=== PATIENT | male | born 1930 | race Caucasian/White ===

== ENCOUNTER 2016-08-30 19:02 | Inpatient (IN) | payer MEDICARE, OTHER ==
[~2016-08-30] VITALS: Ht 182.9 cm; Wt 92.3 kg
[~2016-08-30 19:02] MED LIST: ALLOPOW4 PO; AMPI500C63 PO; ASPI81CH3; CHOL1CAP6 PO; CIAL5TAB PO; KONS520C PO; NEXI10GR PO; OMEG100010; TAB-TAB PO; TRIBTAB3 PO; VITA50LO PO
[2016-08-30 19:08] VITALS: BP 118/83; PULSE 112; RESP 20; TEMP 100.9; O2SAT 93
[2016-08-30] MEDS ORDERED: ASPI1TAB69 PO (19:58)
[2016-08-30] MEDS ORDERED: VITA100C6 CHEW (19:58)
[2016-08-30] MEDS ORDERED: CHOL100025 CHEW (19:58)
[2016-08-30] MEDS ORDERED: FISHCAP4 PO (19:58)
[2016-08-30] MEDS ORDERED: TRIBTAB PO (19:58)
[2016-08-30] MEDS ORDERED: ALLO300T2 PO (19:58)
[2016-08-30] MEDS ORDERED: META0.52 PO (19:58)
[2016-08-30] MEDS ORDERED: MULT1CHW70 (19:58)
[2016-08-30] MEDS ORDERED: NEXI40CA PO (19:58)
[2016-08-30] MEDS ORDERED: VITA100L PO (19:58)
[2016-08-30] MEDS ORDERED: SODIUM CHLOR 0.9% 1000 ML INJ 1,000 ML IV ONE (20:32)
[2016-08-30] MEDS ORDERED: SODIUM CHLOR 0.9% 1000 ML INJ 800 ML IV ONE (20:32)
[2016-08-30] MEDS ORDERED: ACETAMINOPHEN 325 MG TAB PO ONE (20:45)
--- NOTE | 2016-08-30 20:48 | PD ---
HPI Chief Complaint: General Weakness Time Seen by Provider: 20:24 Travel History International Travel<30 days: No Contact w/Intl Traveler<30days: No Traveled to known affect area: No History of Present Illness HPI 85-year-old male with history of hypertension, sleep apnea, admitted in April 2016 for sepsis, UTI, Enterococcus faecalis bacteremia, here for evaluation because he believes he is having symptoms similar to when he was septic. Symptoms started today. He is having some dysuria. He is complaining of overall generalized weakness and difficulty walking because of weakness. No chest pain or dyspnea. No headache. He has been having a slight cough over the last couple of days which is nonproductive. Triage vital signs show the patient is febrile and tachycardic. His admission in April for UTI/sepsis was preceded by cystoscopy/rectal ultrasonography of his prostate. He has not had any recent urologic procedures. PFSH Past Medical History Hx Anticoagulant Therapy: Yes (ASPIRIN) Arthritis: Yes Blood Disorders: No Anxiety: No Depression: Yes Heart Rhythm Problems: No Cancer: No Cardiovascular Problems: Yes (PACEMAKER) High Cholesterol: Yes Chemotherapy: No Chest Pain: No Congestive Heart Failure: No Diminished Hearing: No Endocrine: No GERD: Yes Gout: Yes Genitourinary: Yes Hepatitis: No Hiatal Hernia: Yes Hypertension: Yes Immune Disorder: No Musculoskeletal: Yes Neurologic: Yes Psychiatric: No Reproductive: No Respiratory: Yes Radiation Therapy: No Sleep Apnea: Yes (uses C-PAP) Thyroid Disease: No Past Surgical History Abdominal Surgery: No AICD: No Cardiac Surgery: Yes (PACEMAKER) Ear Surgery: No Endocrine Surgery: No Eye Surgery: Yes (CATARACT BILATERAL/DETACHED RETINA, ) Gynecologic Surgery: No Joint Replacement: Yes (LEFT HIP AND LEFT WRIST) Oral Surgery: No Pacemaker: Yes Thoracic Surgery: No Other Surgery: Yes (HIP SURGERY) Social History Alcohol Use: Yes (2-3 GLASSES OF WINE QD) Tobacco Use: No Substance Use: No Allergies-Medications (Allergen,Severity, Reaction): Coded Allergies: Monosodium Glutamate (Verified Allergy, Severe, Nausea/Vomiting, 08/30/16) Reported Meds & Prescriptions Reported Meds & Active Scripts Active Reported Tribenzor (Ipgqcgagld-Hnnffihuqp-Igahlhqkgrecnprdilz) 20-5-12.5 mg Tab Unknown Dose PO DAILY Metamucil (Psyllium) 520 Mg Cap 1 Cap PO DAILY Multivitamin Adult (Multiple Vitamins W/ Minerals) 1 Chw Chw Vitamin B-12 (Cyanocobalamin) 100 Mcg Lozg 100 Mcg PO DAILY Vitamin D3 (Cholecalciferol) 1,000 Unit Chew 2,000 Units CHEW DAILY Vitamin C (Ascorbic Acid) 100 Mg Chew 100 Mg CHEW Nexium (Esomeprazole DR) 40 Mg Capdr 40 Mg PO DAILY Allopurinol 300 Mg Tab 300 Mg PO DAILY Aspirin 81 Mg Tabdr 81 Mg PO DAILY Fish Oil + D3 (Fish Oil-Cholecalciferol) 1,200-1,000 Mg-Unit Cap 2 Cap PO DAILY Review of Systems Except as stated in HPI: all other systems reviewed are Neg Physical Exam Narrative GENERAL: Well-developed, well-nourished, comfortable, no acute distress. SKIN: Warm and dry. No rash. HEAD: Atraumatic. Normocephalic. EYES: Pupils equal and round. No scleral icterus. No injection or drainage. ENT: Mucous membranes pink and dry. NECK: Trachea midline. No JVD. No nuchal rigidity. CARDIOVASCULAR: Tachycardic, regular. RESPIRATORY: No accessory muscle use. Clear to auscultation. Breath sounds equal bilaterally. GASTROINTESTINAL: Abdomen soft, non-tender, nondistended. MUSCULOSKELETAL: No obvious deformities. No clubbing. No cyanosis. No edema. NEUROLOGICAL: Awake and alert. No obvious cranial nerve deficits. Motor grossly within normal limits. Normal speech. PSYCHIATRIC: Appropriate mood and affect; insight and judgment normal. Data Data Last Documented VS Vital Signs Date Time Temp Pulse Resp B/P Pulse Ox O2 Delivery O2 Flow Rate FiO2 08/30/16 22:11 98.3 85 18 136/81 95 Nasal Cannula 2 Orders Electrocardiogram (08/30/16 20:32) Complete Blood Count With Diff (08/30/16 20:32) Comprehensive Metabolic Panel (08/30/16 20:32) Prothrombin Time / Inr (Pt) (08/30/16 20:32) Act Partial Throm Time (Ptt) (08/30/16 20:32) Lactic Acid Sepsis Protocol (08/30/16 20:32) Ckmb (Isoenzyme) Profile (08/30/16 20:32) Troponin I (08/30/16 20:32) Urinalysis - C+S If Indicated (08/30/16 20:32) Influenzae A/B Antigen (08/30/16 20:32) Blood Culture (08/30/16 20:32) Chest, Single Ap (08/30/16 20:32) Blood Glucose (08/30/16 20:32) Ecg Monitoring (08/30/16 20:32) Iv Access Insert/Monitor (08/30/16 20:32) Oximetry (08/30/16 20:32) Oxygen Administration (08/30/16 20:32) Acetaminophen (Tylenol) (08/30/16 20:45) Sodium Chlor 0.9% 1000 Ml Inj (Ns 1000 M (08/30/16 20:32) Sodium Chlor 0.9% 1000 Ml Inj (Ns 1000 M (08/30/16 20:32) Urine Culture (08/30/16 20:45) CKMB (08/30/16 20:50) CKMB% (08/30/16 20:50) Ampicillin Inj (Ampicillin Inj) (08/30/16 22:25) Labs Laboratory Tests Test 08/30/16 08/30/16 20:45 20:50 Urine Color YELLOW Urine Turbidity CLEAR Urine pH 6.0 Urine Specific [place] 1.016 Urine Protein NEG mg/dL Urine Glucose (UA) NEG mg/dL Urine Ketones NEG mg/dL Urine Occult Blood MOD Urine Nitrite NEG Urine Bilirubin NEG Urine Leukocyte Esterase SMALL Urine RBC 10-14 /hpf Urine WBC 9-14 /hpf Urine WBC Clumps OCC Urine Squamous Epithelial 0-5 /hpf Cells Urine Bacteria FEW /hpf Microscopic Urinalysis Comment CULTURE INDICATED White Blood Count 9.8 TH/MM3 Red Blood Count 4.25 MIL/MM3 Hemoglobin 14.3 GM/DL Hematocrit 41.2 % Mean Corpuscular Volume 96.9 FL Mean Corpuscular Hemoglobin 33.6 PG Mean Corpuscular Hemoglobin 34.7 % Concent Red Cell Distribution Width 13.0 % Platelet Count 168 TH/MM3 Mean Platelet Volume 7.2 FL Neutrophils (%) (Auto) % Lymphocytes (%) (Auto) % Monocytes (%) (Auto) % Eosinophils (%) (Auto) % Basophils (%) (Auto) % Neutrophils # (Auto) TH/MM3 Lymphocytes # (Auto) TH/MM3 Monocytes # (Auto) TH/MM3 Eosinophils # (Auto) TH/MM3 Basophils # (Auto) TH/MM3 CBC Comment AUTO DIFF Differential Total Cells 100 Counted Neutrophils % (Manual) 89 % Band Neutrophils % 3 % Lymphocytes % 3 % Monocytes % 4 % Basophils % 1 % Neutrophils # (Manual) 9.0 TH/MM3 Differential Comment FINAL DIFF MANUAL Platelet Estimate NORMAL Platelet Morphology Comment CLUMPED Red Cell Morphology Comment NORMAL Prothrombin Time 10.1 SEC Prothromb Time International 0.9 RATIO Ratio Activated Partial 27.8 SEC Thromboplast Time Sodium Level 133 MEQ/L Potassium Level 3.8 MEQ/L Chloride Level 97 MEQ/L Carbon Dioxide Level 26.0 MEQ/L Anion Gap 10 MEQ/L Blood Urea Nitrogen 24 MG/DL Creatinine 1.40 MG/DL Estimat Glomerular Filtration 48 ML/MIN Rate Random Glucose 135 MG/DL Lactic Acid Level 1.6 mmol/L Calcium Level 8.2 MG/DL Total Bilirubin 0.5 MG/DL Aspartate Amino Transf 22 U/L (AST/SGOT) Alanine Aminotransferase 33 U/L (ALT/SGPT) Alkaline Phosphatase 82 U/L Total Creatine Kinase 158 U/L Creatine Kinase MB 2.5 NG/ML Troponin I LESS THAN 0.02 NG/ML Total Protein 7.3 GM/DL Albumin 3.5 GM/DL [facility] Medical Decision Making Medical Screen Exam Complete: Yes Emergency Medical Condition: Yes Medical Record Reviewed: Yes Differential Diagnosis Sepsis, UTI, pneumonia, bacteremia, influenza, dehydration/electrolyte abnormality Narrative Course Initial vital signs show heart rate 112, blood pressure 118/83, pulse ox 93% on room air, oral temp of 100.9F. CBC shows WBC 9.8, hemoglobin 14.3, hematocrit 41.2, platelets 168, neutrophils 89%, band neutrophils 3%. CMP is remarkable for BUN 24, creatinine 1.4, GFR 48 which is slightly worse than his baseline, otherwise unremarkable. Cardiac enzymes are negative. Lactic acid is 1.6. Chest x-ray shows no focal consolidation. Minimal basilar atelectasis. UA is suggestive of UTI. In April 2016 the patient had UTI/bacteremia that grew out Enterococcus faecalis. He was treated with ampicillin at that time. He will be started on ampicillin here. The patient is also extremely weak and his is concerned that she will not be able to care for him at home. There are no focal neurologic deficits on exam. Patient meets sepsis criteria. He'll be admitted for further treatment and evaluation of sepsis, UTI. Case discussed with hospitalist Dr. Puri who will admit the patient to her service. Diagnosis Primary Impression: Sepsis Qualified Code: A41.9 - Sepsis, due to unspecified organism Additional Impression: UTI (urinary tract infection) Qualified Code: N39.0 - Urinary tract infection with hematuria, site unspecified Admitting Information Admitting Physician Requests: Admit Gonzalez Bellamy MD Aug 30, 2016 20:48
[2016-08-30 21:00] VITALS: BP 146/85; PULSE 94; RESP 20; TEMP 99.3; O2SAT 90
[2016-08-30 21:06] LABS: HEMATOCRIT 41.2 % (39.0-51.0); MEAN CELL VOLUME 96.9 FL (80.0-100.0); MEAN CORPUSCULAR HEMOGLOBIN 33.6 PG (27.0-34.0); MEAN CORPUSCULAR HGB CONC 34.7 % (32.0-36.0); PLATELET COUNT 168 TH/MM3 (150-450); RED BLOOD COUNT 4.25 MIL/MM3 (4.50-5.90); WHITE BLOOD COUNT 9.8 TH/MM3 (4.0-11.0)
[2016-08-30 21:12] LABS: GLUCOSE,URINE NEG (NEG); KETONE, URINE NEG (NEG); NITRITE,URINE NEG (NEG)
[2016-08-30 21:16] LABS: CHLORIDE 97 MEQ/L (98-107); POTASSIUM 3.8 MEQ/L (3.5-5.1); SODIUM (NA) 133 MEQ/L (136-145)
[2016-08-30 21:19] LABS: BLOOD, URINE MOD (NEG)
[2016-08-30 21:19] LABS: ANION GAP 10 MEQ/L (5-15); BLOOD UREA NITROGEN 24 MG/DL (7-18)
[2016-08-30 21:20] VITALS: BP 147/78; PULSE 86; RESP 18; O2SAT 95
[2016-08-30 21:20] LABS: URINE COLOR YELLOW (YELLW/STRAW)
[2016-08-30 21:21] LABS: BACTERIA, URINE FEW /hpf; COMMENT (UR) CULTURE INDICATED; CULTURE IF INDICATED CULTURE INDICATED; SQUAMOUS EPITHELIAL CELL URINE 0-5 /hpf (0-5)
[2016-08-30 21:21] LABS: APTT (PATIENT) 27.8 SEC (24.3-30.1); INTERNATIONAL NORMALIZED RATIO 0.9 RATIO; PROTHROMBIN TIME - PATIENT 10.1 SEC (9.8-11.6)
[2016-08-30 21:22] LABS: ALT (GPT) 33 U/L (12-78); AST (GOT) 22 U/L (15-37)
[2016-08-30 21:23] LABS: GLOMERULAR FILTRATION RATE 48 ML/MIN (>89)
[2016-08-30 21:24] LABS: TOTAL BILIRUBIN ADULT 0.5 MG/DL (0.2-1.0)
[2016-08-30 21:25] LABS: ALKALINE PHOSPHATASE 82 U/L (45-117); CREATINE KINASE 158 U/L (39-308); HEMO FLAGS AUTO DIFF
[2016-08-30 21:37] LABS: CKMB 2.5 NG/ML (0.5-3.6)
--- NOTE | 2016-08-30 21:56 | RADHPO ---
EXAM DATE/TIME: 08/30/2016 21:10 [facility] COMPARISON: CHEST SINGLE AP, April 26, 2016, 18:26. INDICATIONS : Fever/ weakness. MEDICAL HISTORY : Hypertension. Gastroesophageal reflux disease. Hiatal hernia. SURGICAL HISTORY : Pacemaker. ENCOUNTER: Initial ACUITY: 1 day PAIN SCORE: 4/10 LOCATION: Bilateral chest FINDINGS: A single view of the chest demonstrates pacer leads overlying right atrium right ventricle. Mild basi lar atelectasis. No pneumothorax. Tortuous aorta. CONCLUSION: 1. No focal consolidation. Minimal basilar atelectasis. Benji Russo MD on August 30, 2016 at 21:53 Board Certified Radiologist. This report was verified electronically.
[2016-08-30 21:58] LABS: BANDS 3 % (0-6); BASOPHILS 1 % (0-2); PLATELET ESTIMATE SMEAR NORMAL (NORMAL); PLATELET MORPHOLOGY CLUMPED (NORMAL); POLYS (SEG NEUTROPHILS) 89 % (16-70); SCAN/DIFF FINAL DIFF MANUAL; WBC DIFF SAMPLE 100
[2016-08-30] MEDS ORDERED: AMPICILLIN 500 MG VIAL IV PUSH ONE (22:00)
[2016-08-30 22:11] VITALS: BP 136/81; PULSE 85; RESP 18; TEMP 98.3; O2SAT 95
[2016-08-30] MEDS ORDERED: AMPICILLIN 500 MG/NS 50 ML IV ONE ×2 (22:25)
[2016-08-30] MEDS ORDERED: ACETAMINOPHEN/HYDROcodone 325 MG/5 MG TAB PO PRN (22:30)
[2016-08-30] MEDS ORDERED: BISACODYL 10 MG SUPP PR PRN (22:30)
[2016-08-30] MEDS ORDERED: ACETAMINOPHEN/HYDROcodone 325 MG/10 MG TAB PO PRN (22:30)
[2016-08-30] MEDS ORDERED: ONDANSETRON HCL 4 MG/2 ML VIAL IVP PRN (22:30)
[2016-08-30] MEDS ORDERED: Vancomycin Consult Pharmacy 1 EA OTHER SCH (22:30)
[2016-08-30] MEDS: SODIUM CHLOR 0.9% 1000 ML INJ 1,000 ML IV SCH (23:09)
[2016-08-30 23:10] VITALS: BP 141/105; PULSE 82; RESP 18; O2SAT 94
[2016-08-30] MEDS ORDERED: VANCOMYCIN 1,500 MG/NS 500 ML IV ONE ×2 (23:30)
[2016-08-31] VITALS (7 sets, daily range): BP systolic 120–159; BP diastolic 74–94; PULSE 82–97; RESP 14–20; TEMP 98.4–101.6; O2SAT 90–97
[2016-08-31 06:46] LABS: AUTOMATED NEUTROPHIL # 6.6 TH/MM3 (1.8-7.7); BASOPHIL % 0.3 % (0.0-2.0); EOSINOPHIL % 0.6 % (0.0-4.0); HEMATOCRIT 38.5 % (39.0-51.0); HEMO FLAGS DIFF FINAL; LYMPH % 6.3 % (9.0-44.0); LYMPHOCYTE # 0.5 TH/MM3 (1.0-4.8); MEAN CORPUSCULAR HEMOGLOBIN 33.2 PG (27.0-34.0); MEAN CORPUSCULAR HGB CONC 33.9 % (32.0-36.0); MONO % 7.8 % (0.0-8.0); PLATELET COUNT 164 TH/MM3 (150-450); RED BLOOD COUNT 3.93 MIL/MM3 (4.50-5.90); RED CELL DISTRIBUTION WIDTH 13.6 % (11.6-17.2); WHITE BLOOD COUNT 7.7 TH/MM3 (4.0-11.0)
[2016-08-31 06:56] LABS: CHLORIDE 103 MEQ/L (98-107); POTASSIUM 3.2 MEQ/L (3.5-5.1); SODIUM (NA) 139 MEQ/L (136-145)
[2016-08-31 07:21] LABS: ALKALINE PHOSPHATASE 60 U/L (45-117); ALT (GPT) 25 U/L (12-78); ANION GAP 9 MEQ/L (5-15); AST (GOT) 21 U/L (15-37); BICARBONATE 26.6 MEQ/L (21.0-32.0); BLOOD UREA NITROGEN 15 MG/DL (7-18); GLOMERULAR FILTRATION RATE 71 ML/MIN (>89); TOTAL BILIRUBIN ADULT 0.7 MG/DL (0.2-1.0)
[2016-08-31] MEDS: SODIUM CHLOR 0.9% 1000 ML INJ 1,000 ML IV SCH ×2 (10:04→18:17)
[2016-08-31] MEDS: SODIUM CHLORIDE 0.9% FLUSH 5 ML FLUSH FLUSH SCH ×2 (10:05→20:29)
[2016-08-31] MEDS: CEFEPIME INJ 1,000 MG in SODIUM CHLORIDE 0.9% INJ 100 ML IV SCH ×2 (10:05→20:47)
--- NOTE | 2016-08-31 11:24 | EKG ---
Date Performed: 08/30/2016 Time Performed: 20:53:28 PTAGE: 85 years EKG: Sinus rhythm with 1st degree A-V block Left axis deviation RBBB with left anterior fascicular block Lateral ST el evation - possible early repolarization Compared to previous tracing 03/19/2016, sinus rhythm with firs t degree AV block has replaced ventricular pacer. Abnormal ECG PREVIOUS TRACING : 03/19/2016 13.18 DOCTOR: Gerson Moreno Interpretating Date/Time 08/31/2016 11:22:53
--- NOTE | 2016-08-31 15:14 | HHI.HP ---
[facility] Gerson Payne MD Admission Diagnosis sepsis, UTI Diagnoses: Travel History International Travel<30 Days: No Contact w/Intl Traveler <30 Da: No Traveled to Known Affected Are: No History of Present Illness This is a pleasant 85 year-old male with past medical history of hypertension, permanent pacemaker, previous history of UTI and sepsis who presented to the ER last night complaining of dysuria, subjective fever chills, and acute onset of generalized weakness. The patient has a long-standing history of gait instability and has been evaluated by neurology as well as neurosurgery for this in the past. He states he went to a [place] yesterday with his and was using his cane at beginning of the democrat. By the end of the democrat he had to have assist from 2 people to get him up. He also endorsed that he was feeling fevers and chills. Upon further questioning he does endorse that he has been having some dysuria for the past several weeks that he had not disclosed to his . Overall he felt his symptoms were similar to when he had the sepsis back in April 2016. Because of these symptoms the patient presented to the ER. 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 Anne Lung nodule Past Surgical History Permanent pacemaker Hip fracture 3 Reported Medications Allergies Coded Allergies Type Severity Reaction Last Updated Verified Monosodium Glutamate Allergy Severe Nausea/Vomiting 08/30/16 Yes Active Scripts Medications Dose Route/Sig Days Date Category Tribenzor (Vgsjsijqaf-Goretzzqxa-Jbnukjggwxvoeiglfri) 20-5-12.5 mg Tab Unknown Dose PO DAILY 08/30/16 Reported Metamucil (Psyllium) 520 Mg Cap 1 Cap PO DAILY 08/30/16 Reported Multivitamin Adult (Multiple Vitamins W/ Minerals) 1 Chw Chw 08/30/16 Reported Vitamin B-12 (Cyanocobalamin) 100 Mcg Lozg 100 Mcg PO DAILY 08/30/16 Reported Vitamin D3 (Cholecalciferol) 1,000 Unit Chew 2,000 Units CHEW DAILY 08/30/16 Reported Vitamin C (Ascorbic Acid) 100 Mg Chew 100 Mg CHEW 08/30/16 Reported Nexium (Esomeprazole DR) 40 Mg Capdr 40 Mg PO DAILY 08/30/16 Reported Allopurinol 300 Mg Tab 300 Mg PO DAILY 08/30/16 Reported Aspirin 81 Mg Tabdr 81 Mg PO DAILY 08/30/16 Reported Fish Oil + D3 (Fish Oil-Cholecalciferol) 1,200-1,000 Mg-Unit Cap 2 Cap PO DAILY 08/30/16 Reported Allergies: Coded Allergies: Monosodium Glutamate (Verified Allergy, Severe, Nausea/Vomiting, 08/30/16) Family History Reviewed and noncontributory Social History No alcohol tobacco or drug use. and lives with his . Spends part of the time each year in [place]. Physical Exam Vital Signs Vital Signs Date Time Temp Pulse Resp B/P Pulse Ox O2 Delivery O2 Flow Rate FiO2 08/31/16 13:33 98.4 97 14 134/80 92 08/31/16 10:33 99.5 85 15 140/94 92 08/31/16 04:00 99.1 86 18 141/79 92 08/31/16 00:20 84 08/31/16 00:00 100.4 89 18 120/74 96 08/31/16 00:00 84 18 159/75 97 Room Air 08/31/16 00:00 97 Room Air 08/30/16 23:10 82 18 141/105 94 Nasal Cannula 2 08/30/16 22:11 98.3 85 18 136/81 95 Nasal Cannula 2 08/30/16 21:20 86 18 147/78 95 Nasal Cannula 2 08/30/16 21:10 20 94 Nasal Cannula 2 08/30/16 21:00 90 Nasal Cannula 2 08/30/16 21:00 90 Nasal Cannula 2 08/30/16 21:00 99.3 94 20 146/85 90 Nasal Cannula 2 08/30/16 19:08 100.9 112 20 118/83 93 Physical Exam GENERAL: Well-nourished, well-developed very pleasant elderly male patient who appears generally than chronologic age. SKIN: Warm and dry. HEAD: Normocephalic. EYES: No scleral icterus. No injection or drainage. NECK: Supple, trachea midline. No JVD or lymphadenopathy. CARDIOVASCULAR: Regular rate and rhythm without murmurs, gallops, or rubs. RESPIRATORY: Breath sounds equal and clear to auscultation bilaterally. No accessory muscle use. GASTROINTESTINAL: Abdomen soft, non-tender, nondistended. EXTREMITIES: No cyanosis, or edema. NEUROLOGICAL: Awake, alert, and oriented x 3. Cognitively sharp. Non-focal. Laboratory Laboratory Tests Test 08/30/16 08/30/16 08/31/16 20:45 20:50 05:14 Urine Color YELLOW Urine Turbidity CLEAR Urine pH 6.0 Urine Specific [place] 1.016 Urine Protein NEG Urine Glucose (UA) NEG Urine Ketones NEG Urine Occult Blood MOD Urine Nitrite NEG Urine Bilirubin NEG Urine Leukocyte Esterase SMALL Urine RBC 10-14 Urine WBC 9-14 Urine WBC Clumps OCC Urine Squamous Epithelial 0-5 Cells Urine Bacteria FEW Microscopic Urinalysis Comment CULTURE INDICATED Prothrombin Time 10.1 Prothromb Time International 0.9 Ratio Activated Partial 27.8 Thromboplast Time Sodium Level 133 139 Potassium Level 3.8 3.2 Chloride Level 97 103 Carbon Dioxide Level 26.0 26.6 Anion Gap 10 9 Blood Urea Nitrogen 24 15 Creatinine 1.40 1.00 Estimat Glomerular Filtration 48 71 Rate Random Glucose 135 113 Lactic Acid Level 1.6 Calcium Level 8.2 8.1 Total Bilirubin 0.5 0.7 Aspartate Amino Transf 22 21 (AST/SGOT) Alanine Aminotransferase 33 25 (ALT/SGPT) Alkaline Phosphatase 82 60 Total Creatine Kinase 158 Creatine Kinase MB 2.5 Troponin I LESS THAN 0.02 Total Protein 7.3 6.3 Albumin 3.5 2.9 White Blood Count 9.8 7.7 Red Blood Count 4.25 3.93 Hemoglobin 14.3 13.1 Hematocrit 41.2 38.5 Mean Corpuscular Volume 96.9 98.0 Mean Corpuscular Hemoglobin 33.6 33.2 Mean Corpuscular Hemoglobin 34.7 33.9 Concent Red Cell Distribution Width 13.0 13.6 Platelet Count 168 164 Mean Platelet Volume 7.2 7.5 Neutrophils (%) (Auto) 85.0 Lymphocytes (%) (Auto) 6.3 Monocytes (%) (Auto) 7.8 Eosinophils (%) (Auto) 0.6 Basophils (%) (Auto) 0.3 Neutrophils # (Auto) 6.6 Lymphocytes # (Auto) 0.5 Monocytes # (Auto) 0.6 Eosinophils # (Auto) 0.0 Basophils # (Auto) 0.0 CBC Comment AUTO DIFF DIFF FINAL Differential Total Cells 100 Counted Neutrophils % (Manual) 89 Band Neutrophils % 3 Lymphocytes % 3 Monocytes % 4 Basophils % 1 Neutrophils # (Manual) 9.0 Differential Comment FINAL DIFF MANUAL Platelet Estimate NORMAL Platelet Morphology Comment CLUMPED Red Cell Morphology Comment NORMAL Date/Time Procedure Status Source Growth 08/30/16 20:59 Influenza Types A,B Antigen ([place]) - Final Complete Nasal Washing NEGATIVE FOR FLU A AND B ANTIGEN.... 08/30/16 20:55 Aerobic Blood Culture - Preliminary Resulted Blood Peripheral NO GROWTH IN 1 DAY 08/30/16 20:55 Anaerobic Blood Culture - Preliminary Resulted Blood Peripheral NO GROWTH IN 1 DAY 08/30/16 20:45 Urine Culture - Preliminary Resulted Urine Clean Catch Group D Enterococcus Result Diagram: 08/31/1614 08/31/16513 Imaging Last Impressions Chest X-Ray 08/30/162031 Signed Impressions: Service Date/Time: Tuesday, August 30, 2016 21:10 - CONCLUSION: 1. No focal consolidation. Minimal basilar atelectasis. Benji Russo MD Assessment and Plan Problem List: (1) Sepsis ICD Code: A41.9 Status: Acute (2) UTI (urinary tract infection) ICD Code: N39.0 Status: Acute (3) Ataxia ICD Code: R27.0 Status: Acute (4) PAOLA (acute kidney injury) ICD Code: N17.9 Status: Acute Assessment and Plan -Sepsis due to UTI. Patient presented with fever, tachycardia, abnormal UA and acute kidney injury. Patient does have previous history of sepsis due to UTI with enterococcus back in April 2016 after a transrectal biopsy of the prostate. Will continue IV antibiotics, follow-up blood and urine cultures. Lactic acid was not elevated. Currently patient is clinically stable. -Generalized weakness with chronic gait instability. We'll consult physical therapy. Patient states that his gait has worsened due to the acute illness. If necessary he would like to go to [facility] rehabilitation senior care facility. He does not feel that his can handle him at home currently. Will assess how he does with physical therapy. -Acute kidney injury. Improving with IV fluids. -Obstructive sleep apnea-may use home cPap. -Gout - continue allopurinol. -Hypertension - resume Norvasc, losartan and HCTZ. -Permanent pacemaker followed by Dr. Anne -DVT prophylaxis Problem Qualifiers (1) Sepsis: Qualified Code: A41.9 - Sepsis, due to unspecified organism (2) UTI (urinary tract infection): Qualified Code: N39.0 - Urinary tract infection with hematuria, site unspecified Harriet Singh MD Aug 31, 2016 15:13
[2016-08-31] MEDS ORDERED: POTASSIUM CHLORIDE 10 MEQ CONTROLLED RELEASE TAB PO ONE (16:00)
[2016-08-31] MEDS: PSYLLIUM FIBER SF/GF 6 GM POWD PKT PO SCH (18:06)
[2016-08-31] MEDS: ASPIRIN EC 81 MG TABEC PO SCH (18:06)
[2016-08-31] MEDS: ALLOPURINOL 300 MG TAB PO SCH (18:06)
[2016-08-31] MEDS: VANCOMYCIN INJ 1,500 MG in SODIUM CHLORID 0.9% 500 ML INJ 500 ML IV SCH (18:09)
[2016-08-31] MEDS: ACETAMINOPHEN 325 MG TAB PO PRN (19:26)
[2016-09-01] VITALS: BP 140/78; PULSE 90; RESP 18; TEMP 98.6; O2SAT 92
[2016-09-01 04:00] VITALS: BP 156/85; PULSE 69; RESP 18; TEMP 100.9; O2SAT 96
[2016-09-01] MEDS: SODIUM CHLOR 0.9% 1000 ML INJ 1,000 ML IV SCH (04:24)
[2016-09-01] MEDS: ACETAMINOPHEN 325 MG TAB PO PRN (05:47)
[2016-09-01] MEDS: CEFEPIME INJ 1,000 MG in SODIUM CHLORIDE 0.9% INJ 100 ML IV SCH (07:56)
[2016-09-01] MEDS: SODIUM CHLORIDE 0.9% FLUSH 5 ML FLUSH FLUSH SCH ×2 (07:56→20:13)
[2016-09-01] MEDS: PSYLLIUM FIBER SF/GF 6 GM POWD PKT PO SCH (07:58)
[2016-09-01 08:00] VITALS: BP 133/87; PULSE 67; PULSE 72; RESP 18; TEMP 98.1; O2SAT 95
[2016-09-01] MEDS: ASPIRIN EC 81 MG TABEC PO SCH (08:01)
[2016-09-01] MEDS: HYDROCHLOROTHIAZIDE 12.5 MG CAP PO SCH (08:01)
[2016-09-01] MEDS: ALLOPURINOL 300 MG TAB PO SCH (08:01)
[2016-09-01] MEDS: PANTOPRAZOLE SOD 40 MG DELAYED RELEASE TAB PO SCH (08:01)
[2016-09-01] MEDS: amLODIPine BESYLATE 5 MG TAB PO SCH (08:01)
[2016-09-01] MEDS: LOSARTAN 25 MG TAB PO SCH (08:01)
[2016-09-01] MEDS ORDERED: ALLOPURINOL 300 MG TAB PO SCH (09:00)
[2016-09-01] MEDS ORDERED: ASPIRIN EC 81 MG TABEC PO SCH (09:00)
[2016-09-01 12:00] VITALS: BP 140/88; PULSE 78; RESP 18; TEMP 98; O2SAT 95
[2016-09-01] MEDS: VANCOMYCIN INJ 1,500 MG in SODIUM CHLORID 0.9% 500 ML INJ 500 ML IV SCH (12:18)
[2016-09-01 16:00] VITALS: BP 138/84; PULSE 70; RESP 18; TEMP 98.4; O2SAT 95
--- NOTE | 2016-09-01 16:44 | RADHPO ---
EXAM DATE/TIME: 09/01/2016 16:15 [facility] COMPARISON: No previous studies available for comparison. EXTERNAL COMPARISON : DRA HEBERT QURESHI, MR ABDOMEN W/ & W/O CONTRAST, April 03, 2011, March 20, 2011. INDICATIONS : Increased BUN/creatinine. MEDICAL HISTORY : Hypercholesterolemia. Hypertension. Hernia, hiatal. Syncope. GERD. Sleep apnea. Renal calculi. UTI. P rostate problems. Shingles. Arthritis. Gout. Anticoagulant therapy, Aspirin. Depression. SURGICAL HISTORY : Pacemaker. Bilateral cataract surgery with lens implants. Detached left retina. Cystoscopy. Right cheekbone fracture. 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 Spianl surgery, chemother apy. ENCOUNTER: Initial ACUITY: 1 day PAIN SCORE: 0/10 LOCATION: Bilateral flank MEASUREMENTS: RIGHT KIDNEY: 11.2 x 4.9 x 4.9 cm LEFT KIDNEY: 11.7 x 4. 7 x 7.1 cm FINDINGS: RIGHT KIDNEY: Renal cortex is normal in thickness. The echogenicity is equal to that of the liver. No hydronephrosi s, stone, or mass. LEFT KIDNEY: Renal cortex is normal in thickness.. No hydronephrosis, stone, or mass. BLADDER: Within normal limits given the degree of distension. CONCLUSION: 1. No evidence of hydronephrosis. 2. Echogenicity of the kidneys is equal to that of the liver which could indicate medical renal disea se. Jose Foster MD on September 01, 2016 at 16:35 Board Certified Radiologist. This report was verified electronically.
[2016-09-01] MEDS: PHENAZOPYRIDINE HCL 200 MG TAB PO SCH (17:01)
[2016-09-01] MEDS: AMPICILLIN INJ 1,000 MG in SODIUM CHLORIDE 0.9% INJ 100 ML IV SCH ×2 (17:02→20:13)
[2016-09-01 20:00] VITALS: BP 145/79; PULSE 76; PULSE 82; RESP 20; TEMP 96.6; O2SAT 92
[2016-09-02] VITALS: BP 150/92; PULSE 68; RESP 20; TEMP 98.1; O2SAT 96
[2016-09-02] MEDS: SODIUM CHLORIDE 0.9% FLUSH 5 ML FLUSH FLUSH PRN ×2 (00:04→05:01)
[2016-09-02] MEDS: AMPICILLIN INJ 1,000 MG in SODIUM CHLORIDE 0.9% INJ 100 ML IV SCH ×6 (00:05→22:03)
[2016-09-02] MEDS ORDERED: guaiFENesin E.R. 600 MG TAB PO ONE (00:15)
[2016-09-02 04:00] VITALS: BP 150/89; PULSE 76; RESP 20; TEMP 96.4; O2SAT 94
[2016-09-02] MEDS ORDERED: PHARMACY ORDERED LAB XX ONE (04:45)
[2016-09-02] MEDS: VANCOMYCIN INJ 1,500 MG in SODIUM CHLORID 0.9% 500 ML INJ 500 ML IV SCH (05:00)
[2016-09-02 08:00] VITALS: BP 148/89; PULSE 71; RESP 17; TEMP 98.2; O2SAT 92
[2016-09-02] MEDS: PHENAZOPYRIDINE HCL 200 MG TAB PO SCH ×3 (09:09→17:28)
[2016-09-02] MEDS: PANTOPRAZOLE SOD 40 MG DELAYED RELEASE TAB PO SCH (09:09)
[2016-09-02] MEDS: SODIUM CHLORIDE 0.9% FLUSH 5 ML FLUSH FLUSH SCH ×2 (09:09→22:02)
[2016-09-02] MEDS: PSYLLIUM FIBER SF/GF 6 GM POWD PKT PO SCH (09:09)
[2016-09-02] MEDS: HYDROCHLOROTHIAZIDE 12.5 MG CAP PO SCH (09:09)
[2016-09-02] MEDS: LOSARTAN 25 MG TAB PO SCH (09:09)
[2016-09-02] MEDS: ALLOPURINOL 300 MG TAB PO SCH (09:09)
[2016-09-02] MEDS: ASPIRIN EC 81 MG TABEC PO SCH (09:09)
[2016-09-02] MEDS: amLODIPine BESYLATE 5 MG TAB PO SCH (09:09)
[2016-09-02 12:00] VITALS: BP 136/87; PULSE 75; RESP 18; TEMP 98; O2SAT 94
[2016-09-02] MEDS ORDERED: AUGM875T PO (12:18)
[2016-09-02] MEDS ORDERED: TAMS5CAP PO (12:18)
[2016-09-02] MEDS ORDERED: PHEN-430 PO (12:18)
[2016-09-02] MEDS ORDERED: LACTCHW3 CHEW (12:18)
--- NOTE | 2016-09-02 12:19 | HHI.DS ---
Discharge Summary Admission Date Aug 30, 2016 at 22:15 Discharge Date: Sep 02, 2016 Admitting Diagnosis sepsis, UTI (1) Sepsis ICD Code: A41.9 (2) UTI (urinary tract infection) ICD Code: N39.0 (3) Ataxia ICD Code: R27.0 (4) PAOLA (acute kidney injury) ICD Code: N17.9 Brief History - From Admission This is a pleasant 85 year-old male with past medical history of hypertension, permanent pacemaker, previous history of UTI and sepsis who presented to the ER last night complaining of dysuria, subjective fever chills, and acute onset of generalized weakness. The patient has a long-standing history of gait instability and has been evaluated by neurology as well as neurosurgery for this in the past. He states he went to a libertarian yesterday with his and was using his cane at beginning of the libertarian. By the end of the libertarian he had to have assist from 2 people to get him up. He also endorsed that he was feeling fevers and chills. Upon further questioning he does endorse that he has been having some dysuria for the past several weeks that he had not disclosed to his . Overall he felt his symptoms were similar to when he had the sepsis back in April 2016. Because of these symptoms the patient presented to the ER. CBC/BMP: 08/31/16 0514 09/01/16 0500 Significant Findings Laboratory Tests Test 08/30/16 08/30/16 08/31/16 09/01/16 20:45 20:50 05:14 05:00 Urine Occult Blood MOD (NEG) Urine Leukocyte Esterase SMALL (NEG) Urine RBC 10-14 /hpf (0-3) Urine WBC 9-14 /hpf (0-5) Urine WBC Clumps OCC (NONE) Urine Bacteria FEW /hpf (NONE) Sodium Level 133 MEQ/L (136-145) Chloride Level 97 MEQ/L (98-107) Blood Urea Nitrogen 24 MG/DL (7-18) Creatinine 1.40 MG/DL (0.60-1.30) Estimat Glomerular Filtration 48 ML/MIN (>89) 71 ML/MIN (>89) 71 ML/MIN (>89) Rate Random Glucose 135 MG/DL 113 MG/DL (74-106) (74-106) Calcium Level 8.2 MG/DL 8.1 MG/DL (8.5-10.1) (8.5-10.1) Troponin I LESS THAN 0.02 NG/ML (0.02-0.05) Red Blood Count 4.25 MIL/MM3 3.93 MIL/MM3 (4.50-5.90) (4.50-5.90) Neutrophils % (Manual) 89 % (16-70) Lymphocytes % 3 % (9-44) Neutrophils # (Manual) 9.0 TH/MM3 (1.8-7.7) Platelet Morphology Comment CLUMPED (NORMAL) Hematocrit 38.5 % (39.0-51.0) Neutrophils (%) (Auto) 85.0 % (16.0-70.0) Lymphocytes (%) (Auto) 6.3 % (9.0-44.0) Lymphocytes # (Auto) 0.5 TH/MM3 (1.0-4.8) Potassium Level 3.2 MEQ/L (3.5-5.1) Total Protein 6.3 GM/DL (6.4-8.2) Albumin 2.9 GM/DL (3.4-5.0) Pt Condition on Discharge: Stable Discharge Disposition: Discharge to SNF Discharge Instructions DIET: Follow Instructions for: Heart Healthy Diet Activities you can perform: Regular-No Restrictions Harriet Singh MD Sep 02, 2016 12:19
--- NOTE | 2016-09-02 17:17 | HHI.PR ---
Subjective Remarks Patient had dysuria yesterday improved with pyridium. Was doing well, for DC to SNF this morning. However this afternoon had acute urinary retention with abdominal pain and inability to void. Leo placed and he had 800 and also out right away. Afebrile. Objective Vitals Vital Signs Date Time Temp Pulse Resp B/P Pulse Ox O2 Delivery O2 Flow Rate FiO2 09/02/16 12:00 98.0 75 18 136/87 94 09/02/16 08:00 98.2 71 17 148/89 92 09/02/16 08:00 98.2 71 17 148/89 92 09/02/16 04:00 96.4 76 20 150/89 94 09/02/16 00:00 98.1 68 20 150/92 96 09/01/16 20:00 96.6 76 20 145/79 92 09/01/16 20:00 82 I/O 09/01/16 09/01/16 09/01/16 09/02/16 09/02/16 09/02/16 07:00 15:00 23:00 07:00 15:00 23:00 Intake Total 1360 ml 540 ml 60 ml 210 ml Output Total 850 ml 1 ml 602 ml 1075 ml Balance 510 ml -1 ml -62 ml -1015 ml 210 ml Intake Oral 760 ml 540 ml 60 ml 210 ml IV Total 600 ml Output Urine Total 850 ml 600 ml 1075 ml Stool Total 1 ml 2 ml # Voids 6 # Bowel Movements 0 0 0 1 Result Diagram: 08/31/16 0514 09/01/16 0500 Objective Remarks GENERAL: Well-nourished, well-developed very pleasant elderly male patient who appears younger than chronologic age. SKIN: Warm and dry. HEAD: Normocephalic. EYES: No scleral icterus. No injection or drainage. NECK: Supple, trachea midline. No JVD or lymphadenopathy. CARDIOVASCULAR: Regular rate and rhythm without murmurs, gallops, or rubs. RESPIRATORY: Breath sounds equal and clear to auscultation bilaterally. No accessory muscle use. GASTROINTESTINAL: Abdomen soft, non-tender, nondistended. EXTREMITIES: No cyanosis, or edema. NEUROLOGICAL: Awake, alert, and oriented x 3. Cognitively sharp. Non-focal. 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 Patient presented with fever, tachycardia, abnormal UA and acute kidney injury. Patient does have previous history of sepsis due to UTI with enterococcus back in April 2016 after a transrectal biopsy of the prostate. He also has history of BPH and has been told he needs to have a prostatectomy but has declined. Urine cultures have grown Enterococcus faecalis. Blood cultures no growth for 72 hours. The patient will continue on ampicillin IV. Transition to by mouth Augmentin on discharge. -Acute urinary retention. Patient has long-standing history of BPH. He stopped taking his Flomax without speaking with his urologist Dr. Eugene. We will resume Flomax. Insert Leo now is his bladder scan shows 500 MLS. He will need to follow-up with Dr. Eugene as outpatient. -Generalized weakness with chronic gait instability. Continue PT. -Acute kidney injury. Resolved. Hep-Lock IV. -Obstructive sleep apnea-may use home cPap. -Gout - continue allopurinol. -Hypertension -continue Norvasc, losartan and HCTZ. 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 Problem Qualifiers (1) Sepsis: Qualified Code: A41.9 - Sepsis, due to unspecified organism (2) UTI (urinary tract infection): Qualified Code: N39.0 - Urinary tract infection without hematuria, site unspecified Harriet Singh MD Sep 02, 2016 17:17
[2016-09-02 17:51] VITALS: PULSE 73
--- NOTE | 2016-09-02 18:06 | HHI.PR ---
Subjective Remarks This note is a late entry for September 01. Apparently my draft note did not save. Patient still with low-grade fever overnight and dysuria. However the patient is much encouraged because his strength is much improved and he ambulated well with physical therapy. Objective Vitals Vital Signs Date Time Temp Pulse Resp B/P Pulse Ox O2 Delivery O2 Flow Rate FiO2 09/02/16 17:51 73 09/02/16 12:00 98.0 75 18 136/87 94 09/02/16 08:00 98.2 71 17 148/89 92 09/02/16 08:00 98.2 71 17 148/89 92 09/02/16 04:00 96.4 76 20 150/89 94 09/02/16 00:00 98.1 68 20 150/92 96 09/01/16 20:00 96.6 76 20 145/79 92 09/01/16 20:00 82 I/O 09/01/16 09/01/16 09/01/16 09/02/16 09/02/16 09/02/16 07:00 15:00 23:00 07:00 15:00 23:00 Intake Total 1360 ml 540 ml 60 ml 210 ml Output Total 850 ml 1 ml 602 ml 1075 ml Balance 510 ml -1 ml -62 ml -1015 ml 210 ml Intake Oral 760 ml 540 ml 60 ml 210 ml IV Total 600 ml Output Urine Total 850 ml 600 ml 1075 ml Stool Total 1 ml 2 ml # Voids 6 # Bowel Movements 0 0 0 1 Result Diagram: 08/31/16 0514 09/01/16 0500 Objective Remarks GENERAL: Well-nourished, well-developed very pleasant elderly male patient who appears younger than chronologic age. SKIN: Warm and dry. HEAD: Normocephalic. EYES: No scleral icterus. No injection or drainage. NECK: Supple, trachea midline. No JVD or lymphadenopathy. CARDIOVASCULAR: Regular rate and rhythm without murmurs, gallops, or rubs. RESPIRATORY: Breath sounds equal and clear to auscultation bilaterally. No accessory muscle use. GASTROINTESTINAL: Abdomen soft, non-tender, nondistended. EXTREMITIES: No cyanosis, or edema. NEUROLOGICAL: Awake, alert, and oriented x 3. Cognitively sharp. Non-focal. 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 Patient presented with fever, tachycardia, abnormal UA and acute kidney injury. Patient does have previous history of sepsis due to UTI with enterococcus back in April 2016 after a transrectal biopsy of the prostate. Urine culture growing Enterococcus faecalis, blood cultures no growth to date. Will follow up sensitivities. For now continue vancomycin IV and cefepime IV. Patient has history of BPH and stopped taking Flomax. I explained that if he is retaining urine this may be the etiology of the UTI. -Generalized weakness with chronic gait instability. Continue PT. -Acute kidney injury. Resolved. Hep-Lock IV. -Obstructive sleep apnea-may use home cPap. -Gout - continue allopurinol. -Hypertension -continue Norvasc, losartan and HCTZ. -Permanent pacemaker followed by Dr. Anne -DVT prophylaxis Discharge Planning SNF vs [facility]. This note is a late entry for September 01. Apparently my draft note did not save. Problem Qualifiers (1) Sepsis: Qualified Code: A41.9 - Sepsis, due to unspecified organism (2) UTI (urinary tract infection): Qualified Code: N39.0 - Urinary tract infection without hematuria, site unspecified Harriet Singh MD Sep 02, 2016 18:06
[2016-09-02 20:00] VITALS: BP 142/85; PULSE 63; RESP 20; TEMP 97.2; O2SAT 93
[2016-09-02] MEDS ORDERED: TAMSULOSIN HCL 0.4 MG CAP PO SCH (21:00)
[2016-09-03] VITALS: BP 141/84; PULSE 62; RESP 20; TEMP 97.3; O2SAT 95
[2016-09-03] MEDS: AMPICILLIN INJ 1,000 MG in SODIUM CHLORIDE 0.9% INJ 100 ML IV SCH ×3 (01:37→08:05)
[2016-09-03 04:00] VITALS: BP 134/84; PULSE 68; RESP 20; TEMP 96.9; O2SAT 94
[2016-09-03 06:30] VITALS: PULSE 60
[2016-09-03] MEDS: amLODIPine BESYLATE 5 MG TAB PO SCH (08:05)
[2016-09-03] MEDS: ALLOPURINOL 300 MG TAB PO SCH (08:05)
[2016-09-03] MEDS: LOSARTAN 25 MG TAB PO SCH (08:06)
[2016-09-03] MEDS: HYDROCHLOROTHIAZIDE 12.5 MG CAP PO SCH (08:06)
[2016-09-03] MEDS: PANTOPRAZOLE SOD 40 MG DELAYED RELEASE TAB PO SCH (08:06)
[2016-09-03] MEDS: PHENAZOPYRIDINE HCL 200 MG TAB PO SCH (08:06)
[2016-09-03] MEDS: ASPIRIN EC 81 MG TABEC PO SCH (08:06)
[2016-09-03] MEDS: PSYLLIUM FIBER SF/GF 6 GM POWD PKT PO SCH (08:07)
[2016-09-03] MEDS: SODIUM CHLORIDE 0.9% FLUSH 5 ML FLUSH FLUSH SCH (08:07)
[2016-09-03 08:28] VITALS: BP 163/95; PULSE 70; RESP 15; TEMP 96.6; O2SAT 92
--- NOTE | 2016-09-03 09:47 | HHI.DS ---
cc: Gerson Payne MD Discharge Summary Admission Date Aug 30, 2016 at 22:15 Discharge Date: Sep 03, 2016 Admitting Diagnosis sepsis, UTI (1) Sepsis ICD Code: A41.9 (2) UTI (urinary tract infection) ICD Code: N39.0 (3) Ataxia ICD Code: R27.0 (4) PAOLA (acute kidney injury) ICD Code: N17.9 (5) Acute urinary retention ICD Code: R33.8 (6) BPH (benign prostatic hyperplasia) ICD Code: N40.0 Procedures None Brief History - From Admission This is a pleasant 85 year-old male with past medical history of hypertension, permanent pacemaker, previous history of UTI and sepsis who presented to the ER complaining of dysuria, subjective fever chills, and acute onset of generalized weakness. The patient has a long-standing history of gait instability and has been evaluated by neurology as well as neurosurgery for this in the past. He states he went to a constitution party the day prior with his and was using his cane at beginning of the constitution party. By the end of the constitution party he had to have assist from 2 people to get him up. He also endorsed that he was feeling fevers and chills. Upon further questioning he does endorse that he has been having some dysuria for the past several weeks that he had not disclosed to his . Overall he felt his symptoms were similar to when he had the urosepsis back in April 2016 after a transrectal prostate biopsy. Because of these symptoms the patient presented to the ER. CBC/BMP: 08/31/16 0514 09/01/16 0500 Significant Findings Laboratory Tests Test 09/01/16 05:00 Estimat Glomerular Filtration 71 ML/MIN (>89) Rate Imaging Last Impressions Renal Ultrasound 09/01/16 0000 Signed Impressions: Service Date/Time: Thursday, September 01, 2016 16:15 - CONCLUSION: 1. No evidence of hydronephrosis. 2. Echogenicity of the kidneys is equal to that of the liver which could indicate medical renal disease. Jose Foster MD Chest X-Ray 08/30/162031 Signed Impressions: Service Date/Time: Tuesday, August 30, 2016 21:10 - CONCLUSION: 1. No focal consolidation. Minimal basilar atelectasis. Benji Russo MD PE at Discharge GENERAL: Well-nourished, well-developed very pleasant elderly male patient who appears younger than chronologic age. SKIN: Warm and dry. HEAD: Normocephalic. EYES: No scleral icterus. No injection or drainage. NECK: Supple, trachea midline. No JVD or lymphadenopathy. CARDIOVASCULAR: Regular rate and rhythm without murmurs, gallops, or rubs. RESPIRATORY: Breath sounds equal and clear to auscultation bilaterally. No accessory muscle use. GASTROINTESTINAL: Abdomen soft, non-tender, nondistended. EXTREMITIES: No cyanosis, or edema. NEUROLOGICAL: Awake, alert, and oriented x 3. Cognitively sharp. Non-focal. Pt update on day of discharge The patient is feeling well today although the Leo catheter is causing him the sensation of dysuria. Hospital Course The patient was admitted to the hospital and treated with IV antibiotics and IV fluids. Urine culture grew Enterococcus faecalis. Blood cultures remain negative. Renal function returned normal. While hospitalized he began to have difficulty urinating and was found to have acute urinary retention. Placement of Leo resulted in output of 800 MLS. Renal ultrasound was negative for any hydronephrosis. The patient does see a urologist Dr. Eugene and used to take Flomax but he stopped taking it because he felt it wasn't doing him any good. He states he's been told in the past that he needs to have laser surgery for his prostate. The patient at this time is medically stable with Leo in place. He will be treated with Augmentin to complete a 14 day course of antibiotics. We have made a follow-up appointment for him with Dr. Eugene on September 14 at 2:30 PM. He will be discharged to [facility] and rehabilitation today for his chronic gait ataxia Pt Condition on Discharge: Stable Discharge Disposition: Discharge to SNF Discharge Time: > 30 minutes Discharge Instructions DIET: Follow Instructions for: Heart Healthy Diet Activities you can perform: Regular-No Restrictions New Medications: Amoxicillin-Clavulanate (Augmentin) 875-125 mg Tab 875 MG PO BID not for use in CrCl <30 ml/min. Infection #22 Ref 0 TAB Lactobacillus Acidophilus (Lactinex) 1 Chew 1 TAB CHEW TID Nutritional Supplement #10 Ref 0 TAB Tamsulosin (Flomax) 0.4 Mg Cap 0.4 MG PO HS Manage Prostate Problems #30 Ref 0 CAP Phenazopyridine (Phenazopyridine) 200 Mg Tab 200 MG PO TID Dysuria #21 TAB Continued Medications: Allopurinol (Allopurinol) 300 Mg Tab 300 MG PO DAILY Gout #30 Ref 0 TAB Ascorbic Acid (Vitamin C) 100 Mg Chew 100 MG CHEW Nutritional Supplement Ref 0 TAB Aspirin (Aspirin) 81 Mg Tabdr 81 MG PO DAILY TAB Cholecalciferol (Vitamin D3) 1,000 Unit Chew 2000 UNITS CHEW DAILY Nutritional Supplement #1 Ref 0 BOTTLE Cyanocobalamin (Vitamin B-12) 100 Mcg Lozg 100 MCG PO DAILY Nutritional Supplement #1 Ref [address] (Nexium) 40 Mg Capdr 40 MG PO DAILY Ref 0 CAP Fish Oil-Cholecalciferol (Fish Oil + D3) 1,200-1,000 Mg-Unit Cap 2 CAP PO DAILY Nutritional Supplement #30 Ref 0 CAP Multiple Vitamins W/ Minerals (Multivitamin Adult) 1 Chw Chw Hwhmpgqkeu-Qlltdjtfrz-Xujgeyhmybuniffbsmt (Tribenzor) 20-5-12.5 mg Tab Unknown Dose PO DAILY Blood Pressure Management #30 Ref 0 TAB Psyllium (Metamucil) 520 Mg Cap 1 CAP PO DAILY Harriet Singh MD Sep 03, 2016 09:47
[2016-09-03 10:00] VITALS: BP 140/80; PULSE 68; RESP 18; O2SAT 92
== END 2016-09-03 11:25 | DRG 872 ==
LOC: PHED 19:02 → PHEDA 22:15 → PH3A 08-31 00:05
PROVIDERS: ADMIT Family Medicine; ATTEND Family Medicine
PROC: 0T9B70Z Drainage of Bladder with Drainage Device, Via Natural or Artificial Opening (ICD-10-PCS; principal; 2016-09-02)
DX: A41.9 Sepsis, unspecified organism (principal); N17.9 Acute kidney failure, unspecified; N39.0 Urinary tract infection, site not specified; R27.0 Ataxia, unspecified; R26.2 Difficulty in walking, not elsewhere classified; R53.1 Weakness; G47.33 Obstructive sleep apnea (adult) (pediatric); M10.9 Gout, unspecified; I10 Essential (primary) hypertension; Z95.0 Presence of cardiac pacemaker; N40.0 Benign prostatic hyperplasia without lower urinary tract symptoms; R33.9 Retention of urine, unspecified; B95.2 Enterococcus as the cause of diseases classified elsewhere; E78.00 Pure hypercholesterolemia, unspecified; K21.9 Gastro-esophageal reflux disease without esophagitis; K44.9 Diaphragmatic hernia without obstruction or gangrene; Z79.82 Long term (current) use of aspirin
CPT/HCPCS: 71010; 76775; 80053; 80202; 81001; 82550; 82552; 82565; 83605; 84484; 85007; 85025; 85027; 85610; 85730; 87040; 87077; 87086; 87186; 87804; 93005; 96360; J0290; J0692; J2405; J3370; J7030; J7040

== ENCOUNTER → 2016-11-06 | Outpatient (CLI) | payer MEDICARE, OTHER ==
[~2016-11-06] MED LIST changes: +ALLO300T2 PO; -ALLOPOW4 PO; -AMPI500C63 PO; +ASPI1TAB69 PO; -ASPI81CH3; +AUGM875T PO; +CHOL100025 CHEW; -CHOL1CAP6 PO; -CIAL5TAB PO; +FISHCAP4 PO; -KONS520C PO; +LACTCHW3 CHEW; +META0.52 PO; +MULT1CHW70; -NEXI10GR PO; +NEXI40CA PO; -OMEG100010; +PHEN-430 PO; -TAB-TAB PO; +TAMS5CAP PO; +TRIBTAB PO; -TRIBTAB3 PO; +VITA100C6 CHEW; +VITA100L PO; -VITA50LO PO
[2016-11-06 09:13] LABS: HEMATOCRIT 39.4 % (39.0-51.0); MEAN CELL VOLUME 99.5 FL (80.0-100.0); MEAN CORPUSCULAR HEMOGLOBIN 33.2 PG (27.0-34.0); MEAN CORPUSCULAR HGB CONC 33.4 % (32.0-36.0); PLATELET COUNT 170 TH/MM3 (150-450); RED BLOOD COUNT 3.96 MIL/MM3 (4.50-5.90); RED CELL DISTRIBUTION WIDTH 14.8 % (11.6-17.2); REVIEW FLAG FINAL; WHITE BLOOD COUNT 3.2 TH/MM3 (4.0-11.0)
[2016-11-06 09:34] LABS: WESTERGREN SEDIMENTATION RATE 11 mm/hr (0-20)
[2016-11-06 09:43] LABS: ALKALINE PHOSPHATASE 71 U/L (45-117); ALT (GPT) 27 U/L (12-78); ANION GAP 8 MEQ/L (5-15); AST (GOT) 22 U/L (15-37); BICARBONATE 28.3 MEQ/L (21.0-32.0); BLOOD UREA NITROGEN 16 MG/DL (7-18); CHLORIDE 99 MEQ/L (98-107); GLOMERULAR FILTRATION RATE 56 ML/MIN (>89); GLUCOSE,FASTING 98 MG/DL (74-99); POTASSIUM 3.8 MEQ/L (3.5-5.1); SODIUM (NA) 135 MEQ/L (136-145); TOTAL BILIRUBIN ADULT 0.6 MG/DL (0.2-1.0); URIC ACID 4.2 MG/DL (2.6-7.2)
[2016-11-06 10:02] LABS: RHEUMATOID FACTOR TRIGGER LESS THAN 10.0 IU/ML (0.0-14.9)
[2016-11-06 10:07] LABS: CREATINE KINASE 132 U/L (39-308); FREE T4 0.69 NG/DL (0.76-1.46); TOTAL PROTEIN SPE 7.4 GM/DL (6.0-7.6)
[2016-11-06 10:19] LABS: CKMB 3.1 NG/ML (0.5-3.6)
[2016-11-06 14:58] LABS: HEMOGLOBIN A1a 1.2 %; HEMOGLOBIN A1b 0.7 %; HEMOGLOBIN Ao 85.6 %; HEMOGLOBIN F 1.9 %; HEMOGLOBIN LA1C 1.9 %; HEMOGLOBIN P3 3.4 %
[2016-11-07 10:45] LABS: IMMUNOGLOBULIN A 436 MG/DL (107-591); IMMUNOGLOBULIN G 1230 MG/DL (690-1690); IMMUNOGLOBULIN M 132 MG/DL (37-225); KAPPA LAMBDA RATIO 1.83 (1.57-3.93); LAMBDA LIGHT CHAIN 179 MG/DL (90-210)
[2016-11-09 13:19] LABS: ALBUMIN SPE 4.54 GM/DL (3.50-5.00); ALPHA 1 GLOBULIN 0.17 GM/DL (0.11-0.29); ALPHA 2 GLOBULIN 0.76 GM/DL (0.22-1.00); BETA GLOBULINS (SPE) 0.76 GM/DL (0.53-1.03)
[2016-11-10 23:52] LABS: VITAMIN B6 44.1 ng/mL (2.1-21.7)
== END ==
LOC: PLAB 07:44
PROVIDERS: ATTEND Psychiatry & Neurology Neurology
DX: M10.9 Gout, unspecified (principal); G64 Other disorders of peripheral nervous system; E11.40 Type 2 diabetes mellitus with diabetic neuropathy, unspecified; E53.8 Deficiency of other specified B group vitamins; M32.10 Systemic lupus erythematosus, organ or system involvement unspecified; I10 Essential (primary) hypertension
CPT/HCPCS: 36415; 80053; 82550; 82552; 82607; 82784; 83036; 83883; 84165; 84207; 84425; 84439; 84443; 84480; 84550; 85027; 85652; 86038; 86334; 86430

== ENCOUNTER 2017-06-20 13:43 | Emergency (ER) | payer MEDICARE, OTHER ==
[~2017-06-20] VITALS: Ht 182.9 cm; Wt 91.0 kg
[~2017-06-20 13:43] MED LIST changes: -PHEN-430 PO; +PHEN-537 PO
[2017-06-20 13:49] VITALS: BP 150/84; PULSE 95; RESP 16; TEMP 98; O2SAT 94
[2017-06-20] MEDS ORDERED: SODIUM CHLOR 0.9% 1000 ML INJ 1,000 ML IV SCH (14:04)
[2017-06-20] MEDS ORDERED: SODIUM CHLORIDE 0.9% FLUSH 10 ML FLUSH IV FLUSH PRN (14:15)
[2017-06-20] MEDS ORDERED: ONDANSETRON HCL 4 MG/2 ML VIAL IVP ONE (14:15)
[2017-06-20] MEDS ORDERED: [UNRECOGNIZED DRUG - CODE] PO (14:15)
[2017-06-20] MEDS ORDERED: MORPHINE SULFATE 4 MG/ML INJ IV PUSH ONE (14:15)
[2017-06-20] MEDS ORDERED: ZALE10CA PO (14:15)
[2017-06-20] MEDS ORDERED: KETOROLAC TROMETHAMINE 30 MG/ML (IVP) VIAL IVP ONE (14:15)
--- NOTE | 2017-06-20 14:18 | PD ---
HPI Chief Complaint: GI Complaint Time Seen by Provider: 13:55 Travel History International Travel<30 days: No Contact w/Intl Traveler<30days: No Traveled to known affect area: No History of Present Illness HPI The patient is a 86-year-old male who presents emergency department for abdominal pain. The patient states he developed abdominal pain approximately 3:30 AM. The abdominal pain is located left lower quadrant, nonradiating, sharp, worse with certain movements and palpation, and there are no current alleviating factors. He denies any nausea, vomiting, diarrhea, or constipation. The patient's last normal bowel movement was yesterday. He denies any known history of diverticulitis. He denies any dysuria, frequency, or urgency. He does have a history of enlarged prostate urinates 3-4 times nightly. He also notes recent multiple falls, fell 10 weeks ago and fractured the L2 vertebrae. He has been seen by his orthopedic surgeon, Dr. Kenyon. The patient states he abdominal pain is different than the pain he had with the L2 fracture. The patient denies any previous abdominal surgeries. Symptoms are moderate, worse with certain movements and palpation, and minimally alleviated at rest. PFSH Past Medical History Hx Anticoagulant Therapy: Yes (ASPIRIN) Arthritis: Yes Blood Disorders: No Anxiety: No Depression: Yes Heart Rhythm Problems: No Cancer: No Cardiovascular Problems: Yes (PACEMAKER) High Cholesterol: Yes Chemotherapy: No Chest Pain: No Congestive Heart Failure: No Diabetes: No Diminished Hearing: No Endocrine: No Gastrointestinal Disorders: No GERD: Yes Gout: Yes Genitourinary: Yes Hepatitis: No Hiatal Hernia: Yes Hypertension: Yes Immune Disorder: No Kidney Stones: Yes Musculoskeletal: Yes (FX L1-2) Neurologic: No Psychiatric: No Reproductive: No Respiratory: Yes Radiation Therapy: No Sleep Apnea: Yes (uses C-PAP) Thyroid Disease: No Influenza Vaccination: Yes Past Surgical History Abdominal Surgery: No AICD: No Cardiac Surgery: Yes (PACEMAKER) Ear Surgery: No Endocrine Surgery: No Eye Surgery: Yes (CATARACT BILATERAL/DETACHED RETINA L) Genitourinary Surgery: Yes (CYSTOSCOPY 04/22/16) Gynecologic Surgery: No Joint Replacement: Yes (LEFT HIP ) Oral Surgery: No Pacemaker: Yes Thoracic Surgery: No Other Surgery: Yes (L HIP SURGERY X3 ) Social History Alcohol Use: Yes (2-3 GLASSES OF WINE QD) Tobacco Use: No Substance Use: No Allergies-Medications (Allergen,Severity, Reaction): Coded Allergies: monosodium glutamate (Unverified Allergy, Severe, Nausea/Vomiting, 06/20/17 ) Reported Meds & Prescriptions Reported Meds & Active Scripts Active Reported Amlodipine-Olmesartan 5-40 Mg Tab 1 Tab PO DAILY Zaleplon 10 Mg Cap 10 Mg PO HS PRN Vitamin B-12 (Cyanocobalamin) 100 Mcg Lozg 100 Mcg PO DAILY Vitamin D3 (Cholecalciferol) 1,000 Unit Chew 2,000 Units CHEW DAILY Vitamin C (Ascorbic Acid) 100 Mg Chew 100 Mg CHEW Nexium (Esomeprazole DR) 40 Mg Capdr 40 Mg PO DAILY Allopurinol 300 Mg Tab 300 Mg PO DAILY Aspirin 81 Mg Tabdr 81 Mg PO DAILY Review of Systems Except as stated in HPI: all other systems reviewed are Neg General / Constitutional: No: Fever, Chills Cardiovascular: No: Chest Pain or Discomfort Respiratory: No: Shortness of Breath Gastrointestinal: Positive: Abdominal Pain, No: Nausea, Vomiting, Diarrhea, Constipation, Changes in Bowel Habits, Loss of Appetite Genitourinary: Positive: Other (history of enlarged prostate with frequent urination), No: Urgency, Frequency, Dysuria Physical Exam Narrative GENERAL: Awake, alert, pleasant 86-year-old male who appears his stated age and is in no acute respiratory distress. SKIN: Focused skin assessment warm/dry. HEAD: Atraumatic. Normocephalic. EYES: Pupils equal and round. No scleral icterus. No injection or drainage. ENT: No nasal bleeding or discharge. Mucous membranes pink and moist. NECK: Trachea midline. No JVD. CARDIOVASCULAR: Regular rate and rhythm. No murmur appreciated. RESPIRATORY: No accessory muscle use. Clear to auscultation. Breath sounds equal bilaterally. GASTROINTESTINAL: Abdomen soft, tender palpation left lower quadrant. Back: There is noted kyphosis. MUSCULOSKELETAL: No obvious deformities. No clubbing. No cyanosis. No edema. NEUROLOGICAL: Awake and alert. No obvious cranial nerve deficits. Motor grossly within normal limits. Normal speech. PSYCHIATRIC: Appropriate mood and affect; insight and judgment normal. Data Data Last Documented VS Vital Signs Date Time Temp Pulse Resp B/P (MAP) Pulse Ox O2 Delivery O2 Flow Rate FiO2 06/20/17 14:48 82 18 157/90 (112) 93 Room Air 06/20/17 13:49 98.0 Orders Orders Complete Blood Count With Diff (06/20/17 14:04) Comprehensive Metabolic Panel (06/20/17 14:04) Lipase (06/20/17 14:04) Urinalysis - C+S If Indicated (06/20/17 14:04) Ct Abd/Pel W/O Iv Contrast (06/20/17 14:04) Iv Access Insert/Monitor (06/20/17 14:04) Ecg Monitoring (06/20/17 14:04) Oximetry (06/20/17 14:04) Morphine Inj (Morphine Inj) (06/20/17 14:15) Ondansetron Inj (Zofran Inj) (06/20/17 14:15) Sodium Chlor 0.9% 1000 Ml Inj (Ns 1000 M (06/20/17 14:04) Sodium Chloride 0.9% Flush (Ns Flush) (06/20/17 14:15) Ketorolac Inj (Toradol Inj) (06/20/17 14:15) Ciprofloxacin 400 Mg Premix (Cipro 400 M (06/20/17 16:00) Metronidazole 500 Mg Inj (Flagyl 500 Mg (06/20/17 16:00) Labs Laboratory Tests Test 06/20/17 14:33 White Blood Count 6.2 TH/MM3 Red Blood Count 4.20 MIL/MM3 Hemoglobin 13.9 GM/DL Hematocrit 41.9 % Mean Corpuscular Volume 99.6 FL Mean Corpuscular Hemoglobin 33.0 PG Mean Corpuscular Hemoglobin Concent 33.1 % Red Cell Distribution Width 13.4 % Platelet Count 221 TH/MM3 Mean Platelet Volume 7.1 FL Neutrophils (%) (Auto) 77.2 % Lymphocytes (%) (Auto) 10.8 % Monocytes (%) (Auto) 10.0 % Eosinophils (%) (Auto) 1.6 % Basophils (%) (Auto) 0.4 % Neutrophils # (Auto) 4.8 TH/MM3 Lymphocytes # (Auto) 0.7 TH/MM3 Monocytes # (Auto) 0.6 TH/MM3 Eosinophils # (Auto) 0.1 TH/MM3 Basophils # (Auto) 0.0 TH/MM3 CBC Comment DIFF FINAL Differential Comment Blood Urea Nitrogen 18 MG/DL Creatinine 0.96 MG/DL Random Glucose 103 MG/DL Total Protein 7.3 GM/DL Albumin 3.4 GM/DL Calcium Level 8.6 MG/DL Alkaline Phosphatase 96 U/L Aspartate Amino Transf (AST/SGOT) 18 U/L Alanine Aminotransferase (ALT/SGPT) 28 U/L Total Bilirubin 0.8 MG/DL Sodium Level 133 MEQ/L Potassium Level 3.6 MEQ/L Chloride Level 99 MEQ/L Carbon Dioxide Level 26.8 MEQ/L Anion Gap 7 MEQ/L Estimat Glomerular Filtration Rate 75 ML/MIN Lipase 181 U/L [facility] Medical Decision Making Medical Screen Exam Complete: Yes Emergency Medical Condition: Yes Medical Record Reviewed: Yes Interpretation(s) Laboratory Tests Test 06/20/17 14:33 White Blood Count 6.2 TH/MM3 Red Blood Count 4.20 MIL/MM3 Hemoglobin 13.9 GM/DL Hematocrit 41.9 % Mean Corpuscular Volume 99.6 FL Mean Corpuscular Hemoglobin 33.0 PG Mean Corpuscular Hemoglobin Concent 33.1 % Red Cell Distribution Width 13.4 % Platelet Count 221 TH/MM3 Mean Platelet Volume 7.1 FL Neutrophils (%) (Auto) 77.2 % Lymphocytes (%) (Auto) 10.8 % Monocytes (%) (Auto) 10.0 % Eosinophils (%) (Auto) 1.6 % Basophils (%) (Auto) 0.4 % Neutrophils # (Auto) 4.8 TH/MM3 Lymphocytes # (Auto) 0.7 TH/MM3 Monocytes # (Auto) 0.6 TH/MM3 Eosinophils # (Auto) 0.1 TH/MM3 Basophils # (Auto) 0.0 TH/MM3 CBC Comment DIFF FINAL Differential Comment Blood Urea Nitrogen 18 MG/DL Creatinine 0.96 MG/DL Random Glucose 103 MG/DL Total Protein 7.3 GM/DL Albumin 3.4 GM/DL Calcium Level 8.6 MG/DL Alkaline Phosphatase 96 U/L Aspartate Amino Transf (AST/SGOT) 18 U/L Alanine Aminotransferase (ALT/SGPT) 28 U/L Total Bilirubin 0.8 MG/DL Sodium Level 133 MEQ/L Potassium Level 3.6 MEQ/L Chloride Level 99 MEQ/L Carbon Dioxide Level 26.8 MEQ/L Anion Gap 7 MEQ/L Estimat Glomerular Filtration Rate 75 ML/MIN Lipase 181 U/L CT of the abdomen and pelvis without contrast reveals findings consistent with moderate localized distal descending/proximal sigmoid diverticulitis. No abscess or perforation at this time. Small 8 mm nodular opacity along the linear scar in the left lung base. This may reflect interval evolution of scar tissue although superimposed nodule cannot be explained later. Follow-up examination in 3 months is recommended. Stable ancillary findings. Differential Diagnosis Differential diagnosis includes nephrolithiasis, diverticulitis, pyelonephritis , constipation, intra-abdominal abscess, pancreatitis, referred pain. Narrative Course IV was established, labs are drawn and sent, and the patient was placed on cardiac telemetry monitoring and continuous pulse oximetry monitoring. The patient was administered morphine, Zofran, Toradol, and placed on IV fluids. Noncontrast CT of the abdomen and pelvis was ordered to evaluate for diverticulitis. The patient's white count was unremarkable. LFTs and lipase are normal. CT of the abdomen and pelvis reveals findings consistent with moderate localized distal descending/proximal sigmoid diverticulitis. No abscess or perforation noted. The patient was administered Cipro and Flagyl intravenously. The patient will be discharged home on Cipro, Flagyl, and hydrocodone as needed for pain. He is advised to follow-up with his primary physician. He will be provided a copy of his CT results and lab results at discharge. Diagnosis Primary Impression: Sigmoid diverticulitis Patient Instructions: General Instructions Additional Instructions: Medications as directed. Follow-up with her primary physician. Diet as tolerated. Please provide the patient a copy of his CT results and lab results at discharge. Return if symptoms worsen or progress. Med/Other Pt SpecificInfo: Prescription(s) given Scripts Metronidazole (Flagyl) 500 Mg Tab 500 MG PO BID for Infection for 7 Days, #14 TAB 0 Refills Prov: Real Small MD 06/20/17 Ciprofloxacin (Cipro) 500 Mg Tab 500 MG PO BID for Infection for 7 Days, #14 TAB 0 Refills Prov: Real Small MD 06/20/17 Hydrocodone-Acetaminophen ([place]) 5 Mg-325 Mg Tab 1 TAB PO Q6H Y for PAIN, #15 TAB 0 Refills Prov: Real Small MD 06/20/17 Disposition: 01 DISCHARGE HOME Condition: Stable Real Small MD Jun 20, 2017 14:18
[2017-06-20 14:33] VITALS: O2SAT 95
[2017-06-20 14:45] LABS: AUTOMATED NEUTROPHIL # 4.8 TH/MM3 (1.8-7.7); BASOPHIL % 0.4 % (0.0-2.0); EOSINOPHIL # 0.1 TH/MM3 (0-0.4); EOSINOPHIL % 1.6 % (0.0-4.0); HEMATOCRIT 41.9 % (39.0-51.0); LYMPH % 10.8 % (9.0-44.0); LYMPHOCYTE # 0.7 TH/MM3 (1.0-4.8); MEAN CELL VOLUME 99.6 FL (80.0-100.0); MEAN CORPUSCULAR HGB CONC 33.1 % (32.0-36.0); NEUT % 77.2 % (16.0-70.0); PLATELET COUNT 221 TH/MM3 (150-450); RED CELL DISTRIBUTION WIDTH 13.4 % (11.6-17.2); WHITE BLOOD COUNT 6.2 TH/MM3 (4.0-11.0)
[2017-06-20 14:46] LABS: HEMO FLAGS DIFF FINAL
[2017-06-20 14:48] VITALS: BP 157/90; PULSE 82; RESP 18; O2SAT 93
[2017-06-20 14:55] LABS: CHLORIDE 99 MEQ/L (98-107); POTASSIUM 3.6 MEQ/L (3.5-5.1); SODIUM (NA) 133 MEQ/L (136-145)
[2017-06-20 14:59] LABS: ANION GAP 7 MEQ/L (5-15); BICARBONATE 26.8 MEQ/L (21.0-32.0); BLOOD UREA NITROGEN 18 MG/DL (7-18)
[2017-06-20 15:01] LABS: ALT (GPT) 28 U/L (12-78)
[2017-06-20 15:02] LABS: AST (GOT) 18 U/L (15-37); GLOMERULAR FILTRATION RATE 75 ML/MIN (>89)
[2017-06-20 15:03] LABS: TOTAL BILIRUBIN ADULT 0.8 MG/DL (0.2-1.0)
[2017-06-20 15:04] LABS: ALKALINE PHOSPHATASE 96 U/L (45-117)
--- NOTE | 2017-06-20 15:54 | RADRPT ---
EXAM DATE/TIME: 06/20/2017 15:15 [place] COMPARISON: CT ABDOMEN & PELVIS W CONTRAST, April 26, 2016, 19:31. INDICATIONS : Left lower quadrant pain. Evaluate for diverticulitis. ORAL CONTRAST: No oral contrast ingested. RADIATION DOSE: 21.79 CTDIvol (mGy) MEDICAL HISTORY : Cardiovascular disease. Gastroesophageal reflux disease. Renal calculi.Hypertension. Hiatal hernia. SURGICAL HISTORY : Pacemaker. Left hip repair. Urolift. ENCOUNTER: Initial ACUITY: 1 day PAIN SCALE: 6/10 LOCATION: Left lower quadrant TECHNIQUE: Volumetric scanning of the abdomen and pelvis was performed. Using automated exposure control and ad justment of the mA and/or kV according to patient size, radiation dose was kept as low as reasonably achievable to obtain optimal diagnostic quality images. DICOM format image data is available electro nically for review and comparison. FINDINGS: LOWER LUNGS: Minimal bibasilar airspace disease likely reflecting atelectasis. Small 8mm nodular opacity along a l inear scar in the left lung base. LIVER: Homogeneous density without lesion. There is no dilation of the biliary tree. Small calcified gallst ones. Gallbladder otherwise appears unremarkable by CT. SPLEEN: Normal size without lesion. PANCREAS: Within normal limits. KIDNEYS: Mild cortical scarring in the mid right kidney. Otherwise, kidneys are symmetrical in size without ev idence for radiopaque renal calculi or hydronephrosis. Bilateral small subcentimeter cystic lesions i ncluding a stable subcentimeter isodense cystic lesion in the inferior pole of the right kidney. ADRENAL GLANDS: Within normal limits. VASCULAR: There is no aortic aneurysm. BOWEL/MESENTERY: Moderate sigmoid with scattered distal descending colonic diverticula. Moderate inflammatory change a t the junction of the descending and sigmoid colon consistent with suspected diverticulitis. No defin itive focal fluid collection or free air at this time. Remainder of the bowel is grossly unremarkable . ABDOMINAL WALL: Within normal limits. RETROPERITONEUM: There is no lymphadenopathy. BLADDER: No wall thickening or mass. REPRODUCTIVE: Prostate beads in place. INGUINAL: There is no lymphadenopathy or hernia. MUSCULOSKELETAL: Left hip arthroplasty. No acute fracture or significant focal lesion. CONCLUSION: 1. Findings consistent with moderate localized distal descending/proximal sigmoid diverticulitis. No abscess or perforation at this time. 2. Small 8mm nodular opacity along a linear scar in the left lung base. This may reflect interval rosemarie lution of scar tissue although superimposed nodule cannot be excluded. Followup examination in 3 amelie hs is recommended per 2017 Fleischner criteria. 3. Stable ancillary findings, as above. Jamin Hughes MD on June 20, 2017 at 15:46 Board Certified Radiologist. This report was verified electronically.
[2017-06-20] MEDS ORDERED: metroNIDAZOLE 500 MG INJ 100 ML IV ONE (16:00)
[2017-06-20] MEDS ORDERED: NORC5TAB PO (16:00)
[2017-06-20] MEDS ORDERED: CIPROFLOXACIN 400 MG PREMIX 200 ML IV ONE (16:00)
[2017-06-20] MEDS ORDERED: METR-1 PO (16:00)
[2017-06-20] MEDS ORDERED: CIPR-9 PO (16:00)
[2017-06-20 16:35] VITALS: BP 142/78; PULSE 70; RESP 18; O2SAT 96
[2017-06-20 18:03] LABS: BLOOD, URINE TRACE (NEG); GLUCOSE,URINE NEG (NEG); KETONE, URINE NEG (NEG); NITRITE,URINE NEG (NEG)
[2017-06-20 18:07] LABS: COMMENT (UR) CULT NOT INDICATED; CULTURE IF INDICATED CULT NOT INDICATED; METHOD OF COLLECTION CLEAN CATCH; RBC, URINE 0-3 /hpf (0-3); SQUAMOUS EPITHELIAL CELL URINE 0-5 /hpf (0-5); URINE COLOR YELLOW (YELLW/STRAW)
[2017-06-20 18:47] VITALS: BP 138/80
== END 2017-06-20 18:48 | disposition home or self-care (01) ==
LOC: PHED 13:43
DX: K57.32 Diverticulitis of large intestine without perforation or abscess without bleeding (principal); I10 Essential (primary) hypertension; E78.00 Pure hypercholesterolemia, unspecified; F32.9 Major depressive disorder, single episode, unspecified; Z95.0 Presence of cardiac pacemaker; R29.6 Repeated falls; Z79.82 Long term (current) use of aspirin; Z79.899 Other long term (current) drug therapy
CPT/HCPCS: 74176; 80053; 81001; 83690; 85025; 96361; 96365; 96367; 96375; 99285; J0744; J1885; J2270; J2405; J7030

== ENCOUNTER → 2017-07-26 | Outpatient (CLI) | payer MEDICARE, OTHER ==
[~2017-07-26] MED LIST changes: -AUGM875T PO; +CIPR-9 PO; -FISHCAP4 PO; -LACTCHW3 CHEW; -META0.52 PO; +METR-1 PO; -MULT1CHW70; +NORC5TAB PO; -PHEN-537 PO; -TAMS5CAP PO; -TRIBTAB PO; +ZALE10CA PO; +[UNRECOGNIZED DRUG - CODE] PO
[2017-07-26 09:35] LABS: BASOPHIL % 0.8 % (0.0-2.0); EOSINOPHIL # 0.2 TH/MM3 (0-0.4); EOSINOPHIL % 6.3 % (0.0-4.0); HEMATOCRIT 40.4 % (39.0-51.0); HEMOGLOBIN 14.2 GM/DL (13.0-17.0); LYMPH % 24.8 % (9.0-44.0); LYMPHOCYTE # 0.8 TH/MM3 (1.0-4.8); MEAN CELL VOLUME 98.9 FL (80.0-100.0); MEAN CORPUSCULAR HEMOGLOBIN 34.8 PG (27.0-34.0); MEAN CORPUSCULAR HGB CONC 35.2 % (32.0-36.0); MEAN PLATELET VOLUME 7.6 FL (7.0-11.0); MONOCYTE # 0.3 TH/MM3 (0-0.9); NEUT % 58.1 % (16.0-70.0); PLATELET COUNT 195 TH/MM3 (150-450); RED BLOOD COUNT 4.08 MIL/MM3 (4.50-5.90); RED CELL DISTRIBUTION WIDTH 14.2 % (11.6-17.2); WHITE BLOOD COUNT 3.4 TH/MM3 (4.0-11.0)
[2017-07-26 10:03] LABS: BICARBONATE 28.8 MEQ/L (21.0-32.0); CALCIUM 8.9 MG/DL (8.5-10.1); CREATININE 1.06 MG/DL (0.60-1.30)
== END ==
LOC: PLAB 07:22
PROVIDERS: ATTEND Family Medicine
DX: I10 Essential (primary) hypertension (principal); D72.819 Decreased white blood cell count, unspecified
CPT/HCPCS: 36415; 80048; 85025

== ENCOUNTER 2018-01-06 05:29 | Day surgery (SDC) | payer MEDICARE, OTHER ==
[2018-01-06] MEDS ORDERED: tylenol pm PO (06:53)
== END 2018-01-06 06:30 | disposition home or self-care (01) ==
LOC: HDOC 05:29 → HDIC 05:32 → HDOC 06:30
PROVIDERS: ATTEND Internal Medicine Cardiovascular Disease
DX: R94.39 Abnormal result of other cardiovascular function study (principal)

== ENCOUNTER 2018-01-06 06:13 | Inpatient (IN) | payer MEDICARE, OTHER ==
[~2018-01-06] VITALS: Ht 182.9 cm; Wt 91.1 kg
[2018-01-06] VITALS (10 sets, daily range): BP systolic 101–157; BP diastolic 58–83; PULSE 62–94; RESP 16–20; TEMP 97.8–101.2; O2SAT 95–99
[2018-01-06] MEDS ORDERED: tylenol pm PO (06:53)
[2018-01-06 07:20] LABS: AUTOMATED NEUTROPHIL # 10.9 TH/MM3 (1.8-7.7); BASOPHIL % 0.3 % (0.0-2.0); EOSINOPHIL # 0.1 TH/MM3 (0-0.4); EOSINOPHIL % 0.6 % (0.0-4.0); HEMATOCRIT 41.5 % (39.0-51.0); HEMOGLOBIN 14.4 GM/DL (13.0-17.0); LYMPHOCYTE # 0.5 TH/MM3 (1.0-4.8); MEAN CELL VOLUME 98.5 FL (80.0-100.0); MEAN CORPUSCULAR HEMOGLOBIN 34.2 PG (27.0-34.0); MEAN CORPUSCULAR HGB CONC 34.7 % (32.0-36.0); MEAN PLATELET VOLUME 7.7 FL (7.0-11.0); MONO % 6.5 % (0.0-8.0); MONOCYTE # 0.8 TH/MM3 (0-0.9); NEUT % 88.6 % (16.0-70.0); PLATELET COUNT 187 TH/MM3 (150-450); RED BLOOD COUNT 4.21 MIL/MM3 (4.50-5.90); RED CELL DISTRIBUTION WIDTH 13.8 % (11.6-17.2); WHITE BLOOD COUNT 12.3 TH/MM3 (4.0-11.0)
--- NOTE | 2018-01-06 07:28 | RADRPT ---
EXAM DATE: 01/06/2018 7:07 AM EDT AGE/SEX: 87 years / Male INDICATIONS: Hematuria. CLINICAL DATA: This is the patient's initial encounter. Patient reports that signs and symptoms have been present for 2 days and indicates a pain score of 0/10. MEDICAL/SURGICAL HISTORY: Renal calculi. Gastroesophageal reflux disease. Hiatal hernia. Hyp ertension. Pacemaker. TURP RADIATION DOSE: 8.7 CTDI (mGy) COMPARISON: [facility], CT ABDOMEN & PELVIS W/O CONTRAST, 06/20/2017. . TECHNIQUE: Multiple contiguous axial images were obtained through the abdomen. Images were obtained using multiple row detector helical technique. Using automated exposure control and adjustment of the mA and/or kV according to patient size, radiation dose was kept as low as reasonably achievable to o btain optimal diagnostic quality images. DICOM format image data is available electronically for rev iew and comparison. Lack of IV contrast limits the diagnosis for certain organ pathology. FINDINGS: Lower Lungs: The visualized lower lungs are clear. Small hiatal hernia the GE junction. Liver: The liver has a homogeneous density without space-occupying lesion. There is no dilation of th e biliary tree. A few tiny stones are again seen in the gallbladder. No surrounding inflammatory urban ges. Spleen: Homogeneous density without enlargement. Pancreas: Unremarkable without mass or calcification. Kidneys: Normal in size and shape. No evidence of mass or hydronephrosis. No evidence of calcified r enal stones. There is a stable cyst measuring 1.5 cm along the lower pole the right kidney. No new or significant changes are seen compared to the prior study. The ureters are nondilated. Adrenal Glands: Unremarkable. Aorta: The aorta and proximal iliac vessels are grossly unremarkable without aneurysmal dilation. Bowel/Mesentery: The bowel loops are grossly unremarkable. The cecum and sigmoid colon have a normal configuration. Scattered diverticulosis throughout the colon. No inflammatory changes. The previousl y noted diverticulitis of the sigmoid colon has resolved. Abdominal Wall: Intact. Retroperitoneum: No evidence of adenopathy in the retrocrural, para-aortic, or deep pelvic regions. Bladder: Limited visualization due to metallic artifact from the left hip prosthesis. The urinary bl adder appears to be grossly unremarkable with no definite calcified bladder stones. Reproductive Organs: Stable compared to the prior examination. Inguinal: The inguinal region is unremarkable without evidence of adenopathy. Bony Structures: Diffuse primary bony degenerative changes, disc degeneration disc space narrowing t hroughout the lumbar spine. There are some old compression along the superior endplate of L2. No sign ificant changes compared to the prior study. Left hip prosthesis. CONCLUSION: 1. No calcified renal stones or hydronephrosis. 2. A few tiny gallstones in the gallbladder. No biliary tract obstruction. 3. Scattered diverticulosis of the colon without inflammatory changes. 4. Stable benign-appearing 1.5 cm cyst lower pole right kidney. 5. No other significant changes are seen compared to the prior study. Electronically signed by: Abram Le MD 01/06/2018 7:26 AM EDT
[2018-01-06] MEDS ORDERED: SODIUM CHLORID 0.9% 500 ML INJ 500 ML IV ONE (07:30)
[2018-01-06] MEDS ORDERED: ACETAMINOPHEN 325 MG TAB PO ONE (07:30)
[2018-01-06 07:44] LABS: ALBUMIN 4.1 GM/DL (3.4-5.0); ALT (GPT) 26 U/L (12-78); AST (GOT) 22 U/L (15-37); BICARBONATE 24.5 MEQ/L (21.0-32.0); BLOOD UREA NITROGEN 21 MG/DL (7-18); CALCIUM 8.8 MG/DL (8.5-10.1); CHLORIDE 102 MEQ/L (98-107); CREATININE 1.37 MG/DL (0.60-1.30); GLOMERULAR FILTRATION RATE 49 ML/MIN (>89); GLUCOSE,RANDOM 102 MG/DL (74-106); SODIUM (NA) 138 MEQ/L (136-145)
[2018-01-06 07:46] LABS: ALKALINE PHOSPHATASE 77 U/L (45-117); TOTAL BILIRUBIN ADULT 0.9 MG/DL (0.2-1.0); TOTAL PROTEIN 8.1 GM/DL (6.4-8.2)
[2018-01-06 07:48] LABS: BACTERIA, URINE RARE /hpf; BILIRUBIN, URINE NEG (NEG); BLOOD, URINE SMALL (NEG); GLUCOSE,URINE NEG (NEG); KETONE, URINE NEG (NEG); MUCUS URINE MOD /lpf (OCC); NITRITE,URINE NEG (NEG); URINE COLOR RED (YELLW/STRAW); URINE LEUKOCYTE ESTERASE LARGE (NEG)
[2018-01-06] MEDS ORDERED: cefTRIAXone INJ 1,000 MG in SODIUM CHLORIDE 0.9% INJ 100 ML IV ONE (08:15)
--- NOTE | 2018-01-06 10:36 | PD ---
HPI Chief Complaint: Complaint Time Seen by Provider: 06:59 Travel History International Travel<30 days: No Contact w/Intl Traveler<30days: No History of Present Illness HPI Patient is a 87 year old male who comes in complaining of chills and hematuria. He was scheduled to have a heart catheterization this morning, but was concerned about the bleeding, so came here. He says this started last night. He says the last time this happened, he had an infection and was septic from it. He denies any nausea or vomiting. He says he has pain at the tip of his penis, along with a constant urge to urinate. He has not taken anything for his symptoms. Nothing seems to improve or worsen the symptoms. Severity is mild to moderate. PFSH Past Medical History Hx Anticoagulant Therapy: Yes (ASPIRIN) Arthritis: Yes Blood Disorders: No Anxiety: No Depression: Yes Heart Rhythm Problems: No Cancer: No Cardiovascular Problems: Yes (PM, HTN, ) High Cholesterol: Yes Chemotherapy: No Chest Pain: No Congestive Heart Failure: No Diabetes: No Diminished Hearing: No Endocrine: No Gastrointestinal Disorders: No GERD: Yes Gout: Yes Genitourinary: Yes Hepatitis: No Hiatal Hernia: Yes Hypertension: Yes Immune Disorder: No Kidney Stones: Yes Musculoskeletal: Yes (FX L1-2) Neurologic: No Psychiatric: No Reproductive: No Respiratory: Yes (Sleep Apnea) Radiation Therapy: No Sleep Apnea: Yes (uses C-PAP) Thyroid Disease: No Past Surgical History Abdominal Surgery: No AICD: No Cardiac Surgery: Yes (PACEMAKER) Ear Surgery: No Endocrine Surgery: No Eye Surgery: Yes (CATARACT BILATERAL/DETACHED RETINA L) Genitourinary Surgery: Yes (CYSTOSCOPY 04/22/16) Gynecologic Surgery: No Joint Replacement: Yes (LEFT HIP ) Oral Surgery: No Pacemaker: Yes Thoracic Surgery: No Other Surgery: Yes (L HIP SURGERY X3 ) Social History Alcohol Use: Yes (2-3 GLASSES OF WINE QD) Tobacco Use: No Substance Use: No Allergies-Medications (Allergen,Severity, Reaction): Coded Allergies: monosodium glutamate (Verified Allergy, Severe, Nausea/Vomiting, 01/06/18) Reported Meds & Prescriptions Reported Meds & Active Scripts Active Reported [tylenol pm] 2 PO HS Amlodipine-Olmesartan 5-40 Mg Tab 1 Tab PO DAILY Vitamin B-12 (Cyanocobalamin) 100 Mcg Lozg 100 Mcg PO DAILY Vitamin D3 (Cholecalciferol) 1,000 Unit Chew 2,000 Units CHEW DAILY Vitamin C (Ascorbic Acid) 100 Mg Chew 100 Mg CHEW Nexium (Esomeprazole DR) 40 Mg Capdr 40 Mg PO DAILY Allopurinol 300 Mg Tab 300 Mg PO DAILY Aspirin 81 Mg Tabdr 81 Mg PO DAILY Review of Systems Except as stated in HPI: all other systems reviewed are Neg General / Constitutional: Positive: Chills, No: Fever HENT: No: Headaches, Lightheadedness Cardiovascular: No: Chest Pain or Discomfort Respiratory: No: Shortness of Breath Gastrointestinal: No: Nausea Genitourinary: Positive: Urgency, Frequency, Dysuria, Hematuria Skin: No Rash, No Change in Pigmentation Neurologic: No: Weakness, Dizziness Physical Exam Narrative GENERAL: Awake and alert, in no acute distress. SKIN: Focused skin assessment warm/dry. HEAD: Atraumatic. Normocephalic. EYES: Pupils equal and round. No scleral icterus. ENT: Mucous membranes pink and moist. NECK: Trachea midline. No JVD. CARDIOVASCULAR: Regular rate and rhythm. No murmur appreciated. RESPIRATORY: No accessory muscle use. Clear to auscultation. Breath sounds equal bilaterally. GASTROINTESTINAL: Abdomen soft, non-tender, nondistended. MUSCULOSKELETAL: No obvious deformities. No clubbing. No cyanosis. No edema. NEUROLOGICAL: Awake and alert. No obvious cranial nerve deficits. Motor grossly within normal limits. Normal speech. PSYCHIATRIC: Appropriate mood and affect; insight and judgment normal. Data Data Last Documented VS Vital Signs Date Time Temp Pulse Resp B/P (MAP) Pulse Ox O2 Delivery O2 Flow Rate FiO2 01/06/18 10:58 98.8 89 17 121/67 (85) 99 Room Air Orders Orders Urinalysis - C+S If Indicated (01/06/18 06:42) Ct Abd/Pel W/O Iv Contrast (01/06/18 06:42) Iv Access Insert/Monitor (01/06/18 07:01) Complete Blood Count With Diff (01/06/18 07:01) Comprehensive Metabolic Panel (01/06/18 07:01) Act Partial Throm Time (Ptt) (01/06/18 07:01) Prothrombin Time / Inr (Pt) (01/06/18 07:01) Sodium Chlorid 0.9% 500 Ml Inj (Ns 500 M (01/06/18 07:30) Acetaminophen (Tylenol) (01/06/18 07:30) Electrocardiogram (01/06/18 06:39) Urine Culture (01/06/18 06:40) Ceftriaxone Inj (Rocephin Inj) (01/06/18 08:15) Lactic Acid (01/06/18 08:02) Admit Order (Ed Use Only) (01/06/18 ) Labs Laboratory Tests Test 01/06/18 06:40 01/06/18 06:50 01/06/18 08:10 Urine Color RED Urine Turbidity CLOUDY Urine pH 5.0 Urine Specific [place] 1.023 Urine Protein >=500 mg/dL Urine Glucose (UA) NEG mg/dL Urine Ketones NEG mg/dL Urine Occult Blood SMALL Urine Nitrite NEG Urine Bilirubin NEG Urine Urobilinogen LESS THAN 2 mg/dL Urine Leukocyte Esterase LARGE Urine RBC /hpf Urine WBC /hpf Urine Bacteria RARE /hpf Urine Mucus MOD /lpf Microscopic Urinalysis Comment CULTURE INDICATED White Blood Count 12.3 TH/MM3 Red Blood Count 4.21 MIL/MM3 Hemoglobin 14.4 GM/DL Hematocrit 41.5 % Mean Corpuscular Volume 98.5 FL Mean Corpuscular Hemoglobin 34.2 PG Mean Corpuscular Hemoglobin Concent 34.7 % Red Cell Distribution Width 13.8 % Platelet Count 187 TH/MM3 Mean Platelet Volume 7.7 FL Neutrophils (%) (Auto) 88.6 % Lymphocytes (%) (Auto) 4.0 % Monocytes (%) (Auto) 6.5 % Eosinophils (%) (Auto) 0.6 % Basophils (%) (Auto) 0.3 % Neutrophils # (Auto) 10.9 TH/MM3 Lymphocytes # (Auto) 0.5 TH/MM3 Monocytes # (Auto) 0.8 TH/MM3 Eosinophils # (Auto) 0.1 TH/MM3 Basophils # (Auto) 0.0 TH/MM3 CBC Comment DIFF FINAL Differential Comment Prothrombin Time 10.0 SEC Prothromb Time International Ratio 1.0 RATIO Activated Partial Thromboplast Time 24.3 SEC Blood Urea Nitrogen 21 MG/DL Creatinine 1.37 MG/DL Random Glucose 102 MG/DL Total Protein 8.1 GM/DL Albumin 4.1 GM/DL Calcium Level 8.8 MG/DL Alkaline Phosphatase 77 U/L Aspartate Amino Transf (AST/SGOT) 22 U/L Alanine Aminotransferase (ALT/SGPT) 26 U/L Total Bilirubin 0.9 MG/DL Sodium Level 138 MEQ/L Potassium Level 4.3 MEQ/L Chloride Level 102 MEQ/L Carbon Dioxide Level 24.5 MEQ/L Anion Gap 12 MEQ/L Estimat Glomerular Filtration Rate 49 ML/MIN Lactic Acid Level 1.7 mmol/L MDM Medical Decision Making Medical Screen Exam Complete: Yes Emergency Medical Condition: Yes Medical Record Reviewed: Yes Differential Diagnosis UTI vs sepsis vs renal stone vs prostatitis Narrative Course Patient is an 87-year-old male who comes in complaining of hematuria with urgency, pain. Exam shows no acute abnormalities. IV established, labs sent. Patient is afebrile. Urinalysis is positive for UTI. CT abdomen and pelvis performed shows no acute abnormalities. Last 24 hours Impressions Abdomen/Pelvis CT 01/06/18 0642 Signed Impressions: CONCLUSION: 1. No calcified renal stones or hydronephrosis. 2. A few tiny gallstones in the gallbladder. No biliary tract obstruction. 3. Scattered diverticulosis of the colon without inflammatory changes. 4. Stable benign-appearing 1.5 cm cyst lower pole right kidney. 5. No other significant changes are seen compared to the prior study. Patient given IV fluids, Tylenol, Rocephin. He will be placed in observation for management of pyelonephritis. Diagnosis Primary Impression: Pyelonephritis Admitting Information Admitting Physician Requests: Observation Natalya Wells MD Jan 06, 2018 10:36
[2018-01-06] MEDS ORDERED: BISACODYL 10 MG SUPP RECTAL PRN (11:45)
[2018-01-06] MEDS ORDERED: SENNOSIDES 8.6 MG TAB PO PRN (11:45)
[2018-01-06] MEDS ORDERED: MAGNESIUM HYDROXIDE SUSP 30 ML CUP PO PRN (11:45)
[2018-01-06] MEDS ORDERED: SODIUM CHLORIDE 0.9% FLUSH 10 ML FLUSH IV FLUSH PRN (11:45)
[2018-01-06] MEDS ORDERED: LACTULOSE SYRUP 20 GM/30 ML CUP PO PRN (11:45)
[2018-01-06] MEDS ORDERED: NALOXONE HCL 0.4 MG/ML AMP IV PUSH PRN (11:45)
[2018-01-06] MEDS ORDERED: TEMAZEPAM 15 MG CAP PO PRN (11:45)
[2018-01-06] MEDS ORDERED: ONDANSETRON ODT 4 MG TAB PO PRN (12:45)
[2018-01-06] MEDS: ENOXAPARIN SODIUM 40 MG/0.4 ML SYRINGE SQ SCH (12:57)
[2018-01-06] MEDS: SODIUM CHLOR 0.9% 1000 ML INJ 1,000 ML IV SCH ×2 (12:58→20:49)
--- NOTE | 2018-01-06 14:58 | HHI.HP ---
[facility] Gerson Payne MD Admission Diagnosis UTI, fever Diagnoses: Chief Complaint: weakness, chills, hematuria Travel History International Travel<30 Days: No Contact w/Intl Traveler <30 Da: No History of Present Illness Patient is a 87 year old male with past medical history of recurrent UTI, hypertension, GERD, gout who comes in complaining of chills and hematuria. He was scheduled to have a heart catheterization this morning by Dr Anne, but was concerned about the bleeding, so came here. He says this started last night. He also says he says hematuria he has clots coming out. He says the last time this happened, he had an infection and was septic from it. He denies any nausea or vomiting. He says he has pain at the tip of his penis, along with a constant urge to urinate. He has not taken anything for his symptoms. Nothing seems to improve or worsen the symptoms. Severity is mild to moderate. Patient denies any chest pain or shortness of breath. Says he will follow-up with Dr. Anne as outpatient and will reschedule cardiac cath. No diaphoresis or nausea. No lightheadedness. He is with generalized weakness. Review of Systems Except as stated in HPI: all other systems reviewed are Neg Past Family Social History Past Medical History UTI, hypertension, GERD, gout Past Surgical History Pacemaker placement, bilateral cataract/detached Left eye retina surgery, cystoscopy 04/22/16, left hip replacement Reported Medications Reported Meds & Active Scripts Active Reported [tylenol pm] 2 PO HS Amlodipine-Olmesartan 5-40 Mg Tab 1 Tab PO DAILY Vitamin B-12 (Cyanocobalamin) 100 Mcg Lozg 100 Mcg PO DAILY Vitamin D3 (Cholecalciferol) 1,000 Unit Chew 2,000 Units CHEW DAILY Vitamin C (Ascorbic Acid) 100 Mg Chew 100 Mg CHEW Nexium (Esomeprazole DR) 40 Mg Capdr 40 Mg PO DAILY Allopurinol 300 Mg Tab 300 Mg PO DAILY Aspirin 81 Mg Tabdr 81 Mg PO DAILY Allergies: Coded Allergies: monosodium glutamate (Verified Allergy, Severe, Nausea/Vomiting, 01/06/18) Family History Father with h/o prostate CA Social History Alcohol Use: Yes (2-3 GLASSES OF WINE QD) Tobacco Use: No Substance Use: No Physical Exam Vital Signs Vital Signs Date Time Temp Pulse Resp B/P (MAP) Pulse Ox O2 Delivery O2 Flow Rate FiO2 01/06/18 10:58 98.8 89 17 121/67 (85) 99 Room Air 01/06/18 09:05 100.1 62 16 117/67 (84) 99 Room Air 01/06/18 08:10 101.2 89 18 136/70 (92) 96 Room Air 01/06/18 07:10 89 18 01/06/18 06:53 72 20 125/67 (86) 99 Room Air 01/06/18 06:16 99.1 94 16 101/58 (72) 95 Physical Exam GENERAL: This is a very pleasant well-nourished, well-developed patient, in no apparent distress. SKIN: No rashes, ecchymoses or lesions. Cool and dry. HEAD: Atraumatic. Normocephalic. No temporal or scalp tenderness. EYES: Pupils equal round and reactive. Extraocular motions intact. No scleral icterus. No injection or drainage. ENT: Nose without bleeding, purulent drainage or septal hematoma. Throat without erythema, tonsillar hypertrophy or exudate. Uvula midline. Airway patent. NECK: Trachea midline. No JVD or lymphadenopathy. Supple, nontender, no meningeal signs. CARDIOVASCULAR: Regular rate and rhythm without murmurs, gallops, or rubs. RESPIRATORY: Clear to auscultation. Breath sounds equal bilaterally. No wheezes , rales, or rhonchi. GASTROINTESTINAL: Abdomen soft, non-tender, nondistended. No hepato-splenomegaly , or palpable masses. No guarding. MUSCULOSKELETAL: Extremities without clubbing, cyanosis, or edema. No joint tenderness, effusion, or edema noted. No calf tenderness. Negative Homans sign bilaterally. NEUROLOGICAL: Awake and alert. Cranial nerves II through XII intact. Motor and sensory grossly within normal limits. Five out of 5 muscle strength in all muscle groups. Normal speech. Laboratory Laboratory Tests Test 01/06/18 06:40 01/06/18 06:50 01/06/18 08:10 Urine Color RED Urine Turbidity CLOUDY Urine pH 5.0 Urine Specific [place] 1.023 Urine Protein >=500 Urine Glucose (UA) NEG Urine Ketones NEG Urine Occult Blood SMALL Urine Nitrite NEG Urine Bilirubin NEG Urine Urobilinogen LESS THAN 2 Urine Leukocyte Esterase LARGE Urine RBC Urine WBC Urine Bacteria RARE Urine Mucus MOD Microscopic Urinalysis Comment CULTURE INDICATED White Blood Count 12.3 Red Blood Count 4.21 Hemoglobin 14.4 Hematocrit 41.5 Mean Corpuscular Volume 98.5 Mean Corpuscular Hemoglobin 34.2 Mean Corpuscular Hemoglobin Concent 34.7 Red Cell Distribution Width 13.8 Platelet Count 187 Mean Platelet Volume 7.7 Neutrophils (%) (Auto) 88.6 Lymphocytes (%) (Auto) 4.0 Monocytes (%) (Auto) 6.5 Eosinophils (%) (Auto) 0.6 Basophils (%) (Auto) 0.3 Neutrophils # (Auto) 10.9 Lymphocytes # (Auto) 0.5 Monocytes # (Auto) 0.8 Eosinophils # (Auto) 0.1 Basophils # (Auto) 0.0 CBC Comment DIFF FINAL Differential Comment Prothrombin Time 10.0 Prothromb Time International Ratio 1.0 Activated Partial Thromboplast Time 24.3 Blood Urea Nitrogen 21 Creatinine 1.37 Random Glucose 102 Total Protein 8.1 Albumin 4.1 Calcium Level 8.8 Alkaline Phosphatase 77 Aspartate Amino Transf (AST/SGOT) 22 Alanine Aminotransferase (ALT/SGPT) 26 Total Bilirubin 0.9 Sodium Level 138 Potassium Level 4.3 Chloride Level 102 Carbon Dioxide Level 24.5 Anion Gap 12 Estimat Glomerular Filtration Rate 49 Lactic Acid Level 1.7 Date/Time Source Procedure Growth Status 01/06/18 06:40 Urine Clean Catch Urine Culture Pending Received Result Diagram: 01/06/18 0650 01/06/18 0650 Imaging Last Impressions Abdomen/Pelvis CT 01/06/18 0642 Signed Impressions: CONCLUSION: 1. No calcified renal stones or hydronephrosis. 2. A few tiny gallstones in the gallbladder. No biliary tract obstruction. 3. Scattered diverticulosis of the colon without inflammatory changes. 4. Stable benign-appearing 1.5 cm cyst lower pole right kidney. 5. No other significant changes are seen compared to the prior study. Caprini VTE Risk Assessment Caprini VTE Risk Assessment: Mod/High Risk (score >= 2) Caprini Risk Assessment Model Point Value = 1 Point Value = 2 Point Value = 3 Point Value = 5 Age 41-60 Minor surgery BMI > 25 kg/m2 Swollen legs Varicose veins or History of unexplained or recurrent spontaneous Oral contraceptives or hormone replacement Sepsis (< 1 month) Serious lung disease, including pneumonia (< 1 month) Abnormal pulmonary function Acute myocardial infarction Congestive heart failure (< 1 month) History of inflammatory bowel disease Medical patient at bed rest Age 61-74 Arthroscopic surgery Major open surgery (> 45 min) Laparoscopic surgery (> 45 min) Malignancy Confined to bed (> 72 hours) Immobilizing plaster cast Central venous access Age >= 75 History of VTE Family history of VTE Factor V Leiden Prothrombin [id number] Lupus anticoagulant Anticardiolipin antibodies Elevated serum homocysteine Heparin-induced thrombocytopenia Other congenital or acquired thrombophilia Stroke (< 1 month) Elective arthroplasty Hip, pelvis, or leg fracture Acute spinal cord injury (< 1 month) Prophylaxis Regimen Total Risk Factor Score Risk Level Prophylaxis Regimen 0-1 Low Early ambulation 2 Moderate Order ONE of the following: *Sequential Compression Device (SCD) *Heparin 5000 units SQ BID 3-4 Higher Order ONE of the following medications: *Heparin 5000 units SQ TID *Enoxaparin/Lovenox 40 mg SQ daily (WT < 150 kg, CrCl > 30 mL/min) *Enoxaparin/Lovenox 30 mg SQ daily (WT < 150 kg, CrCl > 10-29 mL/min) *Enoxaparin/Lovenox 30 mg SQ BID (WT < 150 kg, CrCl > 30 mL/min) AND/OR *Sequential Compression Device (SCD) 5 or more Highest Order ONE of the following medications: *Heparin 5000 units SQ TID (Preferred with Epidurals) *Enoxaparin/Lovenox 40 mg SQ daily (WT < 150 kg, CrCl > 30 mL/min) *Enoxaparin/Lovenox 30 mg SQ daily (WT < 150 kg, CrCl > 10-29 mL/min) *Enoxaparin/Lovenox 30 mg SQ BID (WT < 150 kg, CrCl > 30 mL/min) AND *Sequential Compression Device (SCD) Assessment and Plan Assessment and Plan Patient is an 87-year-old male who comes in complaining of hematuria with urgency, pain. Exam shows no acute abnormalities. IV established, labs sent. Patient is afebrile. Urinalysis is positive for UTI. CT abdomen and pelvis performed shows no acute abnormalities. Sepsis (with UTI, fevers, tachycardia and leucocytosis on admission) also with previous sepsis /uti UTI Poss pyelonephritis PAOLA Cr 1.[address] A/P reviewed and findings discussed with ED physician: No hydronephrosis or calcified renal stones. Diverticulosis of the colon without inflammatory changes. IV Rocephin. Blood cultures, U cx pending Patient treated recently for UTI /sepsis IVF Avoid nephrotoxins. Monitor kidney function. Consult urology Consider ID consult if need Chronic medical problems hypertension, GERD, gout appears stable at this time. Restart home medications as appropriate. DVT prophylaxis SCDs/teds/Lovenox. Discussed Condition With Patient, nurse, ED physician Megan Conner MD Jan 06, 2018 14:58
[2018-01-06] MEDS ORDERED: ACETAMINOPHEN 500 MG CPLT PO ONE (19:15)
--- NOTE | 2018-01-06 19:15 | EKG ---
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 DOCTOR: Aliza Malik Interpretating Date/Time 01/06/2018 19:14:14
--- NOTE | 2018-01-06 19:16 | EKG ---
Date Performed: 01/06/2018 Time Performed: 08:24:24 PTAGE: 87 years EKG: ELECTRONIC VENTRICULAR PACEMAKER ABNORMAL RHYTHM ECG Electronic Paced Rythm PREVIOUS TRACING : 01/06/2018 06.39 Since the previous tracing, no significant change not ed DOCTOR: Aliza Malik Interpretating Date/Time 01/06/2018 19:14:44
[2018-01-06] MEDS: SODIUM CHLORIDE 0.9% FLUSH 10 ML FLUSH IV FLUSH SCH (20:49)
[2018-01-06] MEDS: DOCUSATE SODIUM 50 MG/SENNA 8.6 MG TAB PO SCH (20:50)
[2018-01-07 04:00] VITALS: BP 127/71; PULSE 71; RESP 18; TEMP 99.1; O2SAT 92
[2018-01-07 08:00] VITALS: BP 121/75; PULSE 68; RESP 16; TEMP 98.1; O2SAT 93
[2018-01-07 08:30] LABS: AUTOMATED NEUTROPHIL # 6.1 TH/MM3 (1.8-7.7); BASOPHIL % 0.3 % (0.0-2.0); EOSINOPHIL % 0.2 % (0.0-4.0); HEMATOCRIT 35.3 % (39.0-51.0); HEMOGLOBIN 12.2 GM/DL (13.0-17.0); LYMPH % 8.4 % (9.0-44.0); LYMPHOCYTE # 0.6 TH/MM3 (1.0-4.8); MEAN CORPUSCULAR HEMOGLOBIN 34.1 PG (27.0-34.0); MEAN CORPUSCULAR HGB CONC 34.4 % (32.0-36.0); MEAN PLATELET VOLUME 7.6 FL (7.0-11.0); MONO % 7.4 % (0.0-8.0); MONOCYTE # 0.5 TH/MM3 (0-0.9); NEUT % 83.7 % (16.0-70.0); PLATELET COUNT 125 TH/MM3 (150-450); RED BLOOD COUNT 3.57 MIL/MM3 (4.50-5.90); RED CELL DISTRIBUTION WIDTH 14.1 % (11.6-17.2); WHITE BLOOD COUNT 7.3 TH/MM3 (4.0-11.0)
[2018-01-07 08:45] LABS: BICARBONATE 23.9 MEQ/L (21.0-32.0); CREATININE 0.99 MG/DL (0.60-1.30)
[2018-01-07] MEDS ORDERED: NON-FORMULARY DRUG (Amlodipine-Olmesartan 1 TAB) PO SCH (09:00)
--- NOTE | 2018-01-07 09:13 | HHI.PR ---
Subjective Remarks Very pleasant in bed says he feels much better today. Had chills last night and fevers. Urine is clearing up now much significant blood. Still with painful urination and also has pain at the tip of his penis with urination. No abdominal pain. No nausea or vomiting. Able to eat appetite is fairly well. Objective Vitals Vital Signs Date Time Temp Pulse Resp B/P (MAP) Pulse Ox O2 Delivery O2 Flow Rate FiO2 01/07/18 08:00 98.1 68 16 121/75 (90) 93 01/07/18 04:00 99.1 71 18 127/71 (89) 92 01/06/18 23:25 97.8 76 18 157/83 (107) 96 01/06/18 20:15 98.8 90 18 129/63 (85) 95 01/06/18 18:00 98.1 87 18 138/70 (92) 99 Room Air 01/06/18 16:00 98.9 82 17 130/68 (88) 99 01/06/18 13:00 98.8 82 16 124/68 (86) 99 Room Air 01/06/18 10:58 98.8 89 17 121/67 (85) 99 Room Air I/O 01/06/18 01/06/18 01/06/18 01/07/18 01/07/18 01/07/18 07:00 15:00 23:00 07:00 15:00 23:00 Intake Total 900 ml 120 ml Output Total 20 ml 700 ml 300 ml Balance -20 ml 200 ml -180 ml Intake Oral 300 ml 120 ml IV Total 600 ml Output Urine Total 20 ml 700 ml 300 ml # Voids 1 2 # Bowel Movements 0 0 Result Diagram: 01/07/18 0724 01/07/18 0724 Imaging Last Impressions Abdomen/Pelvis CT 01/06/18 0642 Signed Impressions: CONCLUSION: 1. No calcified renal stones or hydronephrosis. 2. A few tiny gallstones in the gallbladder. No biliary tract obstruction. 3. Scattered diverticulosis of the colon without inflammatory changes. 4. Stable benign-appearing 1.5 cm cyst lower pole right kidney. 5. No other significant changes are seen compared to the prior study. Objective Remarks GENERAL: This is a very pleasant 87 yo male, appearing younger than the stated age, well-nourished, well-developed patient, in no apparent distress. CARDIOVASCULAR: Regular rate and rhythm without murmurs, gallops, or rubs. RESPIRATORY: Clear to auscultation. Breath sounds equal bilaterally. No wheezes , rales, or rhonchi. GASTROINTESTINAL: Abdomen soft, non-tender, nondistended. No hepato-splenomegaly , or palpable masses. No guarding. MUSCULOSKELETAL: Extremities without clubbing, cyanosis, or edema. No joint tenderness, effusion, or edema noted. No calf tenderness. Negative Homans sign bilaterally. NEUROLOGICAL: Awake and alert. Cranial nerves II through XII intact. Motor and sensory grossly within normal limits. Five out of 5 muscle strength in all muscle groups. Normal speech. A/P Assessment and Plan Patient is an 87-year-old male who comes in complaining of hematuria with urgency, pain. Exam shows no acute abnormalities. IV established, labs sent. Patient is afebrile. Urinalysis is positive for UTI. CT abdomen and pelvis performed shows no acute abnormalities. Sepsis (with UTI, fevers, tachycardia and leucocytosis on admission) also with previous sepsis /UTI. Sepsis is resolving. UTI Poss pyelonephritis PAOLA Cr 1.[address] A/P reviewed and findings discussed with ED physician: No hydronephrosis or calcified renal stones. Diverticulosis of the colon without inflammatory changes. IV Rocephin. Blood cultures, Ucx GNR. I&S pending. Monitor. Patient treated recently for UTI /sepsis IVF Avoid nephrotoxins. Monitor kidney function. Consult urology Chronic medical problems hypertension, GERD, gout appears stable at this time. Restart home medications as appropriate. Patient is following with Dr Anne cardio as OP. Says he will reschedule appointment with cardiology. Patient is asymptomatic at this time, no chest pain. DVT prophylaxis SCDs/teds/Lovenox. Discussed Condition With Patient, nurse, family - at bedside DC plan: DC in 1-2 days, UTI -awaiting Identification sensitivities. Says his has eye surgery on Wednesday and would like to be discharged as soon as possible Megan Conner MD Jan 07, 2018 09:13
[2018-01-07] MEDS: cefTRIAXone INJ 1,000 MG in SODIUM CHLORIDE 0.9% INJ 100 ML IV SCH (10:04)
[2018-01-07] MEDS: ASPIRIN EC 81 MG TABEC PO SCH (10:05)
[2018-01-07] MEDS: ALLOPURINOL 300 MG TAB PO SCH (10:05)
[2018-01-07] MEDS: DOCUSATE SODIUM 50 MG/SENNA 8.6 MG TAB PO SCH ×2 (10:06→20:43)
[2018-01-07] MEDS: PANTOPRAZOLE SOD 20 MG DELAYED RELEASE TAB PO SCH (10:06)
[2018-01-07] MEDS: SODIUM CHLORIDE 0.9% FLUSH 10 ML FLUSH IV FLUSH SCH ×2 (10:06→20:43)
[2018-01-07] MEDS: amLODIPine BESYLATE 5 MG TAB PO SCH (10:06)
[2018-01-07] MEDS: CYANOCOBALAMIN 100 MCG TAB PO SCH (10:06)
[2018-01-07] MEDS: SODIUM CHLOR 0.9% 1000 ML INJ 1,000 ML IV SCH ×2 (10:06→17:39)
[2018-01-07 12:00] VITALS: BP 153/91; PULSE 68; RESP 18; TEMP 98.6; O2SAT 95
[2018-01-07] MEDS: ENOXAPARIN SODIUM 40 MG/0.4 ML SYRINGE SQ SCH (12:13)
[2018-01-07] MEDS ORDERED: OXYBUTYNIN CHLORIDE 5 MG TAB PO ONE (13:15)
[2018-01-07] MEDS: TAMSULOSIN HCL 0.4 MG CAP PO SCH (14:44)
--- NOTE | 2018-01-07 15:12 | PD.CONS ---
HPI Service Urology Consult Requested By Dr Conner Reason for Consult Hematuria Primary Care Physician Gerson Payne MD Diagnosis: History of Present Illness Patient is a 87 year old male with past medical history of recurrent UTI, BPH, s /p TURP a year ago, hypertension, GERD, gout who comes in complaining of chills and hematuria. He was scheduled to have a heart catheterization yesterday by Dr Anne, but developed hematuria with frequency and urgency started a night prior. He had Cysto in 2016 and was septic after procedure. Also states that has recurrent UTIs after TURP [place] [address] Eugene. He is on Flomax daily. Labs are stable. VS are stable too Hematuria is currently resolving. He feels better today after IV antbx. UC is growing Gm- rods Review of Systems Except as stated in HPI: all other systems reviewed are Neg Past Family Social History Past Medical History UTI, hypertension, GERD, gout, BPH Past Surgical History Pacemaker placement, bilateral cataract/detached Left eye retina surgery, cystoscopy 04/22/16, left hip replacement, TURP Allergies: Coded Allergies: monosodium glutamate (Verified Allergy, Severe, Nausea/Vomiting, 01/06/18) Family History Father with h/o prostate CA Social History Alcohol Use: Yes (2-3 GLASSES OF WINE QD) Tobacco Use: No Substance Use: No Physical Exam Vital Signs Date Time Temp Pulse Resp B/P (MAP) Pulse Ox O2 Delivery O2 Flow Rate FiO2 01/07/18 12:00 98.6 68 18 153/91 (111) 95 01/07/18 08:00 93 Room Air 01/07/18 08:00 98.1 68 16 121/75 (90) 93 01/07/18 04:00 99.1 71 18 127/71 (89) 92 01/06/18 23:25 97.8 76 18 157/83 (107) 96 01/06/18 20:15 98.8 90 18 129/63 (85) 95 01/06/18 18:00 98.1 87 18 138/70 (92) 99 Room Air 01/06/18 16:00 98.9 82 17 130/68 (88) 99 Physical Exam GENERAL: This is a well-nourished, well-developed patient, in no apparent distress. SKIN: No rashes, ecchymoses or lesions. Cool and dry. HEAD: Atraumatic. Normocephalic. CARDIOVASCULAR: Regular rate and rhythm without murmurs, gallops, or rubs. RESPIRATORY: Clear to auscultation. Breath sounds equal bilaterally. No wheezes , rales, or rhonchi. GASTROINTESTINAL: Abdomen soft, non-tender, nondistended. GENITOURINARY:No CVAT, Bladder not distended MUSCULOSKELETAL: Extremities without clubbing, cyanosis, or edema. NEUROLOGICAL: Awake and alert. Lab results reviewed: Yes Laboratory Tests Test 01/06/18 16:21 01/07/18 07:24 Lactic Acid Level 1.7 White Blood Count 7.3 Red Blood Count 3.57 Hemoglobin 12.2 Hematocrit 35.3 Mean Corpuscular Volume 99.0 Mean Corpuscular Hemoglobin 34.1 Mean Corpuscular Hemoglobin Concent 34.4 Red Cell Distribution Width 14.1 Platelet Count 125 Mean Platelet Volume 7.6 Neutrophils (%) (Auto) 83.7 Lymphocytes (%) (Auto) 8.4 Monocytes (%) (Auto) 7.4 Eosinophils (%) (Auto) 0.2 Basophils (%) (Auto) 0.3 Neutrophils # (Auto) 6.1 Lymphocytes # (Auto) 0.6 Monocytes # (Auto) 0.5 Eosinophils # (Auto) 0.0 Basophils # (Auto) 0.0 CBC Comment DIFF FINAL Differential Comment Blood Urea Nitrogen 16 Creatinine 0.99 Random Glucose 106 Calcium Level 8.0 Sodium Level 141 Potassium Level 3.4 Chloride Level 108 Carbon Dioxide Level 23.9 Anion Gap 9 Estimat Glomerular Filtration Rate 72 Date/Time Source Procedure Growth Status 01/06/18 16:40 Blood Peripheral Aerobic Blood Culture - Preliminary NO GROWTH IN 1 DAY Resulted 01/06/18 16:40 Blood Peripheral Anaerobic Blood Culture - Preliminary NO GROWTH IN 1 DAY Resulted 01/06/18 06:40 Urine Clean Catch Urine Culture - Preliminary Gram Negative Hiram Resulted Result Diagram: 01/07/18 0724 01/07/18 0724 Personally reviewed images: Yes Imaging Last Impressions Abdomen/Pelvis CT 01/06/18 0642 Signed Impressions: CONCLUSION: 1. No calcified renal stones or hydronephrosis. 2. A few tiny gallstones in the gallbladder. No biliary tract obstruction. 3. Scattered diverticulosis of the colon without inflammatory changes. 4. Stable benign-appearing 1.5 cm cyst lower pole right kidney. 5. No other significant changes are seen compared to the prior study. Assessment and Plan Assessment and Plan 87y.o M pt of Dr Eugene, admitted for UTI w / hematuria. CT is unremarkable - Continue care as per primary team Follow up on final UC results to pick correct PO antbx - Continue Flomax. He does not need Ditropan - Perform bladder scan after voiding to make sure he is not retaining urine, if retains more then 250cc will need peralta catheter placement - Pt to f/u after D/c with Dr Eugene for further management Kunal Sheehan Jan 07, 2018 15:12
[2018-01-07 16:00] VITALS: BP 113/63; PULSE 63; RESP 18; TEMP 97.5; O2SAT 93
[2018-01-07 20:00] VITALS: BP 120/71; PULSE 67; RESP 18; TEMP 97.2; O2SAT 93
[2018-01-07] MEDS: OXYBUTYNIN CHLORIDE 5 MG TAB PO SCH (20:43)
[2018-01-07 23:50] VITALS: BP 132/71; PULSE 66; RESP 16; TEMP 98.8; O2SAT 93
[2018-01-08] MEDS: SODIUM CHLOR 0.9% 1000 ML INJ 1,000 ML IV SCH ×2 (03:39→14:40)
[2018-01-08 03:59] VITALS: BP 140/73; PULSE 65; RESP 16; TEMP 97.8; O2SAT 94
[2018-01-08 08:22] LABS: AUTOMATED NEUTROPHIL # 4.3 TH/MM3 (1.8-7.7); BASOPHIL % 0.5 % (0.0-2.0); EOSINOPHIL # 0.1 TH/MM3 (0-0.4); EOSINOPHIL % 2.2 % (0.0-4.0); HEMATOCRIT 36.4 % (39.0-51.0); HEMOGLOBIN 12.4 GM/DL (13.0-17.0); LYMPH % 10.9 % (9.0-44.0); LYMPHOCYTE # 0.6 TH/MM3 (1.0-4.8); MEAN CELL VOLUME 100.6 FL (80.0-100.0); MEAN CORPUSCULAR HEMOGLOBIN 34.3 PG (27.0-34.0); MEAN CORPUSCULAR HGB CONC 34.1 % (32.0-36.0); MEAN PLATELET VOLUME 7.8 FL (7.0-11.0); MONO % 8.6 % (0.0-8.0); MONOCYTE # 0.5 TH/MM3 (0-0.9); NEUT % 77.8 % (16.0-70.0); PLATELET COUNT 125 TH/MM3 (150-450); RED BLOOD COUNT 3.62 MIL/MM3 (4.50-5.90); RED CELL DISTRIBUTION WIDTH 13.9 % (11.6-17.2); WHITE BLOOD COUNT 5.6 TH/MM3 (4.0-11.0)
[2018-01-08 08:49] VITALS: BP 151/76; PULSE 65; RESP 16; TEMP 97.8; O2SAT 94
[2018-01-08 08:49] LABS: BICARBONATE 24.3 MEQ/L (21.0-32.0); CALCIUM 8.3 MG/DL (8.5-10.1); CREATININE 0.97 MG/DL (0.60-1.30); MAGNESIUM 2.2 MG/DL (1.5-2.5)
[2018-01-08] MEDS: DOCUSATE SODIUM 50 MG/SENNA 8.6 MG TAB PO SCH (09:00)
[2018-01-08] MEDS: TAMSULOSIN HCL 0.4 MG CAP PO SCH (10:16)
[2018-01-08] MEDS: ASPIRIN EC 81 MG TABEC PO SCH (10:16)
[2018-01-08] MEDS: cefTRIAXone INJ 1,000 MG in SODIUM CHLORIDE 0.9% INJ 100 ML IV SCH (10:16)
[2018-01-08] MEDS: CYANOCOBALAMIN 100 MCG TAB PO SCH (10:16)
[2018-01-08] MEDS: SODIUM CHLORIDE 0.9% FLUSH 10 ML FLUSH IV FLUSH SCH (10:17)
[2018-01-08] MEDS: OXYBUTYNIN CHLORIDE 5 MG TAB PO SCH (10:17)
[2018-01-08] MEDS: ALLOPURINOL 300 MG TAB PO SCH (10:17)
[2018-01-08] MEDS: amLODIPine BESYLATE 5 MG TAB PO SCH (10:17)
[2018-01-08] MEDS: PANTOPRAZOLE SOD 20 MG DELAYED RELEASE TAB PO SCH (10:17)
[2018-01-08 12:29] VITALS: BP 143/75; PULSE 67; RESP 16; TEMP 97.7; O2SAT 96
[2018-01-08] MEDS: ENOXAPARIN SODIUM 40 MG/0.4 ML SYRINGE SQ SCH (14:40)
[2018-01-08] MEDS ORDERED: POTASSIUM CHLORIDE 10 MEQ CONTROLLED RELEASE TAB PO ONE (15:15)
[2018-01-08] MEDS ORDERED: TAMS5CAP PO (15:23)
[2018-01-08] MEDS ORDERED: CEFU1TAB20 PO (15:23)
--- NOTE | 2018-01-08 15:24 | HHI.FF ---
Face to Face Verification Diagnosis: (1) Sepsis (2) UTI (urinary tract infection) (3) BPH (benign prostatic hyperplasia) (4) Ataxia (5) PAOLA (acute kidney injury) (6) Acute urinary retention Physical Therapy Order: Improve ambulation, Strength and gait training Home Health Nursing Order: Nursing assessment with vital signs I have seen patient Jonatan Cam on 01/08/18. My clinical findings support the need for the requested home health care services because: Deconditioned w/ increased weakness I certify that my clinical findings support that this patient is homebound because: Unsteady gait/balance Unsafe to leave home unassisted Unable to use public transportation John Russell MD Jan 08, 2018 15:24
--- NOTE | 2018-01-08 15:29 | HHI.DS ---
Discharge Summary Admission Date Jan 06, 2018 at 15:58 Discharge Date: Jan 08, 2018 Admitting Diagnosis UTI, fever (1) PAOLA (acute kidney injury) ICD Code: N17.9 - Acute kidney failure, unspecified Diagnosis: Principal Status: Resolved (2) BPH (benign prostatic hyperplasia) ICD Code: N40.0 - Benign prostatic hyperplasia without lower urinary tract symptoms Diagnosis: Principal Status: Chronic (3) UTI (urinary tract infection) ICD Code: N39.0 - Urinary tract infection, site not specified Diagnosis: Principal Status: Acute (4) Sepsis ICD Code: A41.9 - Sepsis, unspecified organism Diagnosis: Principal Status: Resolved (5) Pyelonephritis ICD Code: N12 - Tubulo-interstitial nephritis, not specified as acute or chronic Diagnosis: Principal Status: Resolved Procedures None Brief History - From Admission Patient is a 87 year old male with past medical history of recurrent UTI, hypertension, GERD, gout who comes in complaining of chills and hematuria. He was scheduled to have a heart catheterization this morning by Dr Anne, but was concerned about the bleeding, so came here. He says this started last night. He also says he says hematuria he has clots coming out. He says the last time this happened, he had an infection and was septic from it. He denies any nausea or vomiting. He says he has pain at the tip of his penis, along with a constant urge to urinate. He has not taken anything for his symptoms. Nothing seems to improve or worsen the symptoms. Severity is mild to moderate. Patient denies any chest pain or shortness of breath. Says he will follow-up with Dr. Anne as outpatient and will reschedule cardiac cath. No diaphoresis or nausea. No lightheadedness. He is with generalized weakness. CBC/BMP: 01/08/18 0735 01/08/18 0735 Significant Findings Laboratory Tests Test 01/06/18 06:40 01/06/18 06:50 01/06/18 08:10 01/06/18 16:21 Urine Color RED (YELLW/STRAW) Urine Turbidity CLOUDY (CLEAR) Urine Occult Blood SMALL (NEG) Urine Leukocyte Esterase LARGE (NEG) Urine Bacteria RARE /hpf (NONE) Urine Mucus MOD /lpf (OCC) White Blood Count 12.3 TH/MM3 (4.0-11.0) Red Blood Count 4.21 MIL/MM3 (4.50-5.90) Mean Corpuscular Hemoglobin 34.2 PG (27.0-34.0) Neutrophils (%) (Auto) 88.6 % (16.0-70.0) Lymphocytes (%) (Auto) 4.0 % (9.0-44.0) Neutrophils # (Auto) 10.9 TH/MM3 (1.8-7.7) Lymphocytes # (Auto) 0.5 TH/MM3 (1.0-4.8) Blood Urea Nitrogen 21 MG/DL (7-18) Creatinine 1.37 MG/DL (0.60-1.30) Estimat Glomerular Filtration Rate 49 ML/MIN (>89) Test 01/07/18 07:24 01/08/18 07:35 Red Blood Count 3.57 MIL/MM3 (4.50-5.90) 3.62 MIL/MM3 (4.50-5.90) Hemoglobin 12.2 GM/DL (13.0-17.0) 12.4 GM/DL (13.0-17.0) Hematocrit 35.3 % (39.0-51.0) 36.4 % (39.0-51.0) Mean Corpuscular Hemoglobin 34.1 PG (27.0-34.0) 34.3 PG (27.0-34.0) Platelet Count 125 TH/MM3 (150-450) 125 TH/MM3 (150-450) Neutrophils (%) (Auto) 83.7 % (16.0-70.0) 77.8 % (16.0-70.0) Lymphocytes (%) (Auto) 8.4 % (9.0-44.0) Lymphocytes # (Auto) 0.6 TH/MM3 (1.0-4.8) 0.6 TH/MM3 (1.0-4.8) Calcium Level 8.0 MG/DL (8.5-10.1) 8.3 MG/DL (8.5-10.1) Potassium Level 3.4 MEQ/L (3.5-5.1) 3.4 MEQ/L (3.5-5.1) Chloride Level 108 MEQ/L (98-107) Estimat Glomerular Filtration Rate 72 ML/MIN (>89) 74 ML/MIN (>89) Mean Corpuscular Volume 100.6 FL (80.0-100.0) Monocytes (%) (Auto) 8.6 % (0.0-8.0) Random Glucose 112 MG/DL (74-106) Imaging Last Impressions Abdomen/Pelvis CT 01/06/18 0642 Signed Impressions: CONCLUSION: 1. No calcified renal stones or hydronephrosis. 2. A few tiny gallstones in the gallbladder. No biliary tract obstruction. 3. Scattered diverticulosis of the colon without inflammatory changes. 4. Stable benign-appearing 1.5 cm cyst lower pole right kidney. 5. No other significant changes are seen compared to the prior study. PE at Discharge GENERAL: This is a very pleasant 87 yo male, appearing younger than the stated age, well-nourished, well-developed patient, in no apparent distress. CARDIOVASCULAR: Regular rate and rhythm without murmurs, gallops, or rubs. RESPIRATORY: Clear to auscultation. Breath sounds equal bilaterally. No wheezes , rales, or rhonchi. GASTROINTESTINAL: Abdomen soft, non-tender, nondistended. No hepato-splenomegaly , or palpable masses. No guarding. MUSCULOSKELETAL: Extremities without clubbing, cyanosis, or edema. No joint tenderness, effusion, or edema noted. No calf tenderness. Negative Homans sign bilaterally. NEUROLOGICAL: Awake and alert. Cranial nerves II through XII intact. Motor and sensory grossly within normal limits. Five out of 5 muscle strength in all muscle groups. Normal speech. Pt update on day of discharge The patient denies any further hematuria. States he has been able to void. Denies fevers or chills. Hospital Course This is an 87-year-old male who came into the hospital complaining of hematuria and urgency as well as pain. Urinalysis was positive for UTI. The patient was found to have sepsis secondary to UTI and possible pyelonephritis. Patient also had acute kidney injury with elevated creatinine 1.34 and hematuria. Patient was treated with IV Rocephin, blood and urine cultures were obtained. Urine culture came back positive for E. coli, cultures no growth 2 days up until day of discharge. The patient will be discharged on oral cefuroxime to complete a total of 7 days of treatment. Chronic medical conditions including hypertension, GERD, gout appeared to be stable. Home medications will be restarted upon discharge. Acute kidney injury likely secondary to prerenal azotemia resolved after IV fluid administration. Patient was also found to be mildly hypokalemic. Potassium was replaced and BMP monitored throughout hospital stay. Pt Condition on Discharge: Stable Discharge Disposition: Disch w/ Home Health Serv Discharge Time: > 30 minutes Discharge Instructions Follow up Referrals: PCP Follow-up - 2 Weeks Urology - 2 Weeks with JASMIN New Medications: Cefuroxime (Cefuroxime) 500 Mg Tab 500 MG PO BID for Infection, #10 TAB 0 Refills Tamsulosin (Flomax) 0.4 Mg Cap 0.4 MG PO DAILY for urine retention, #30 CAP Continued Medications: Allopurinol (Allopurinol) 300 Mg Tab 300 MG PO DAILY for Gout, #30 TAB 0 Refills Amlodipine-Olmesartan (Amlodipine-Olmesartan) 5-40 Mg Tab 1 TAB PO DAILY for Blood Pressure Management, #30 TAB 0 Refills Ascorbic Acid (Vitamin C) 100 Mg Chew 100 MG CHEW for Nutritional Supplement, TAB 0 Refills Aspirin (Aspirin) 81 Mg Tabdr 81 MG PO DAILY, TAB Cholecalciferol (Vitamin D3) 1,000 Unit Chew 2000 UNITS CHEW DAILY for Nutritional Supplement, #1 BOTTLE 0 Refills Cyanocobalamin (Vitamin B-12) 100 Mcg Lozg 100 MCG PO DAILY for Nutritional Supplement, #1 BOTTLE [address] (Nexium) 40 Mg Capdr 40 MG PO DAILY, CAP 0 Refills [tylenol pm] () 2 PO HS John Russell MD Jan 08, 2018 15:29
== END 2018-01-08 16:51 | disposition home health service (06) | DRG 872 ==
LOC: NEPC 06:13 → NEDA 11:01 → OBSVTOIN 15:58 → N04B 20:13
PROVIDERS: ADMIT Hospitalist; ATTEND Hospitalist
DX: A41.9 Sepsis, unspecified organism (principal); N17.9 Acute kidney failure, unspecified; N39.0 Urinary tract infection, site not specified; N12 Tubulo-interstitial nephritis, not specified as acute or chronic; E78.00 Pure hypercholesterolemia, unspecified; K21.9 Gastro-esophageal reflux disease without esophagitis; I10 Essential (primary) hypertension; K57.30 Diverticulosis of large intestine without perforation or abscess without bleeding; N40.0 Benign prostatic hyperplasia without lower urinary tract symptoms; B96.20 Unspecified Escherichia coli [E. coli] as the cause of diseases classified elsewhere; E87.6 Hypokalemia; R53.1 Weakness; M19.90 Unspecified osteoarthritis, unspecified site; G47.30 Sleep apnea, unspecified; M10.9 Gout, unspecified; Z96.642 Presence of left artificial hip joint; Z87.440 Personal history of urinary (tract) infections; Z79.82 Long term (current) use of aspirin; Z87.442 Personal history of urinary calculi; Z95.0 Presence of cardiac pacemaker
CPT/HCPCS: 74176; 80048; 80053; 81001; 83605; 83735; 85025; 85610; 85730; 87040; 87077; 87086; 87186; 93005; J0696; J1650; J7030; J7040

== ENCOUNTER 2018-02-04 12:42 | Observation (INO) ==
--- NOTE | 2018-02-04 13:24 | ED ---
HPI General Chief Complaint: Fever Stated Complaint: fever/weakness Time Seen by Provider: 02/04/18 12:59 Source: patient and family Mode of arrival: ambulatory Limitations: no limitations History of Present Illness HPI Narrative: 87-year-old male presents emergency department for evaluation of a fever and weakness that started this morning. Patient says that he presented to the emergency department yesterday where he had a full workup and was discharged as patient felt better. Says today he woke up and tried to shower was unable to do so because he felt so weak. Patient only walks with a walker was unable to use this device for ambulation he states that he has been " shaking uncontrollably" and is concerned about developing sepsis. He states that he has had home health care once a week for the last 4 weeks after admission here in the hospital for sepsis. This morning the nurse advised to come to the emergency department for a fever of 102.7. Patient not take medication for this. 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 Anne last month but was advised to come to the emergency department for sepsis secondary to urinary tract infection. Says that his heart cath is due within the next month. Says Wednesday he is having a cystoscopy for evaluation of hematuria by his urologist. Says he has a history of kidney stones in his bladder. He denies chest pain, shortness of breath, nausea, vomiting, diarrhea, abdominal pain, leg pain. MD complaint: fever and weakness Onset (ago): day(s) (1) Temperature Source: subjective (102.7) Associated symptoms: chills Relieving factors: nothing Exacerbating factors: nothing Treatments prior to arrival fever: none Related Data Home Medications Medication Instructions Recorded Confirmed allopurinol 300 mg PO DAILY 02/03/18 02/04/18 amlodipine-olmesartan 1 tab PO DAILY 02/03/18 02/04/18 ascorbic acid (vitamin C) 100 mg PO DAILY 02/03/18 02/04/18 aspirin [Aspir-81] 81 mg PO DAILY 02/03/18 02/04/18 cyanocobalamin (vitamin B-12) 100 mcg PO DAILY 02/03/18 02/04/18 esomeprazole magnesium 20 mg PO DAILY 02/03/18 02/04/18 tamsulosin 0.8 mg PO DAILY 02/03/18 02/04/18 Allergies Allergy/AdvReac Type Severity Reaction Status Date / Time monosodium glutamate AdvReac Severe Nausea/Vomi Verified 02/04/18 13:03 ting Review of Systems Except as stated in HPI: all other systems reviewed are negative [facility] Medical History Medical History Pacemaker (Acute) BPH (benign prostatic hyperplasia) (Acute) Cheek injury (Acute) Degenerative disc disease (Acute) Deviated septum (Acute) GERD (gastroesophageal reflux disease) (Acute) Gout (Acute) History of frequent urinary tract infections (Acute) Hypertension (Acute) Obstructive sleep apnea on CPAP (Acute) Surgical History Surgical History Hx of joint replacement (Acute) Social History Social History Substance History: No History of Abuse Second Hand Smoke Exposure: No Smoking Status: Former smoker Tobacco Type: Cigarettes How Often Do You Have a Drink Containing Alcohol: 2 to 4 times a month Recent Out of Country Travel within the Last 8 Weeks: No Exam Narrative Exam Narrative: GENERAL: Well-developed well-nourished no apparent distress, moving about extremity spontaneously SKIN: Focused skin assessment warm/dry. HEAD: Atraumatic. Normocephalic. EYES: Pupils equal and round. No scleral icterus. No injection or drainage. EOMI ENT: No nasal bleeding or discharge. Mucous membranes pink and moist. NECK: Trachea midline. No JVD. No lymphadenopathy CARDIOVASCULAR: Regular rate and rhythm. No murmur appreciated. RESPIRATORY: No accessory muscle use. Clear to auscultation. Breath sounds equal bilaterally. GASTROINTESTINAL: Abdomen soft, non-tender, nondistended. Hepatic and splenic margins not palpable. Normoactive bowel sounds MUSCULOSKELETAL: No obvious deformities. No clubbing. No cyanosis. No edema. Homans sign negative bilaterally NEUROLOGICAL: Awake and alert. No obvious cranial nerve deficits. Motor grossly within normal limits. Normal speech. PSYCHIATRIC: Appropriate mood and affect; insight and judgment normal. Course Initial Documented Vital Signs Temperature 99.9 F H 02/04/18 12:44 Pulse Rate 114 H 02/04/18 12:44 Respiratory Rate 16 02/04/18 12:44 Blood Pressure 142/82 H 02/04/18 12:44 Last Documented Vital Signs Temperature 98.6 F 02/04/18 13:14 Pulse Rate 89 02/04/18 13:14 Respiratory Rate 20 02/04/18 13:14 Blood Pressure 123/67 02/04/18 13:14 Pulse Oximetry 95 02/04/18 13:14 Medical Decision Making TERRI Attestation TERRI supervised visit: Yes Attestation: I, Dr. Olmstead, have reviewed the advance practice practitioner's documentation and am in agreement, met with the patient face to face, made the diagnosis, and the medical decision making was done by me. *My assessment and Findings: Low-grade fever with associated tachycardia. Second visit for weakness of unclear unknown reason. Cultures are pending. Possible repeat chest x-ray after hydration. MDM Narrative Medical decision making narrative: 87-year-old male presents emergency department with his with concerns of fever and weakness that started this morning. Patient went to [facility] emergency department yesterday where he was evaluated for sepsis and discharged home in stable condition. Patient said he woke up this morning it is felt increasingly weak and had a fever of 102.7. He really has no other complaints other than feeling generalized weakness. Denies one-sided deficits or neuro symptoms. Denies chest pain, shortness of breath, abdominal pain, urinary symptoms. He does say that he has had increased urination over the last couple days. At this time, his labs are stable. No leukocytosis. Urine is noncontributory. The hematuria is chronic according to patient and is also the reason why he follows a urologist. He is due to have a cystoscopy Wednesday. Troponin 0.03. Note that patient is due for heart cath with his experimental flight test mechanic, Dr. Bianchi. Currently he denies chest pain or shortness of breath. 1L NS administered. At this time, I do not have cause for his fever. He continues to complain of generalized weakness and this is his second visit to the ED. I'd like to admit him for observation. He is afebrile in the ED. Differential Diagnosis Differential Diagnosis: fever, URI, pneumonia, UTI, sepsis Lab Data Result diagrams: 02/04/18 13:40 02/04/18 13:40 Lab Results 02/04/18 02/04/18 02/04/18 Range/Units 13:40 13:40 13:40 WBC 6.1 (4.0-11.0) th/mm3 RBC 4.07 L (4.50-5.90) mil/mm3 Hgb 13.6 (13.0-17.0) gm/dL Hct 40.3 (39.0-51.0) % MCV 99.0 (80.0-100.0) fL MCH 33.5 (27.0-34.0) pg MCHC 33.8 (32.0-36.0) % RDW 14.0 (11.6-17.2) % Plt Count 106 L (150-450) th/mm3 MPV 7.3 (7.0-11.0) fL Neut % (Auto) 85.8 H (16.0-70.0) % Lymph % (Auto) 4.2 L (9.0-44.0) % [place]pson % (Auto) 9.3 H (0.0-8.0) % Eos % (Auto) 0.1 (0.0-4.0) % Baso % (Auto) 0.6 (0.0-2.0) % Neut # (Auto) 5.2 (1.8-7.7) th/mm3 Lymph # (Auto) 0.3 L (1.0-4.8) th/mm3 Upson # (Auto) 0.6 (0.0-0.9) th/mm3 Eos # (Auto) 0.0 (0.0-0.4) th/mm3 Baso # (Auto) 0.0 (0.0-0.2) th/mm3 WBC Differential . Differential Comment Auto diff final PT 10.7 (9.8-11.6) sec INR 1.1 Ratio Sodium 135 L (136-145) meq/L Potassium 3.5 (3.5-5.1) meq/L Chloride 101 (98-107) meq/L Carbon Dioxide 25.5 (21.0-32.0) meq/L Anion Gap 9 (5-15) meq/L BUN 19 H (7-18) mg/dL Creatinine 1.14 (0.60-1.30) mg/dL Estimated GFR 61 L (>89) mL/min Random Glucose 109 H (74-106) mg/dL Lactic Acid (0.4-2.0) mmol/L Calcium 8.3 L (8.5-10.1) mg/dL Total Bilirubin 0.8 (0.2-1.0) mg/dL AST 19 (15-37) U/L ALT 24 (12-78) U/L Alkaline Phosphatase 68 (45-117) U/L Troponin I 0.03 (0.02-0.05) ng/mL Total Protein 6.8 (6.4-8.2) g/dL Albumin 3.5 (3.4-5.0) g/dL Urine Color (Yellw/Straw) Urine Clarity (Clear) Urine pH (5.0-8.5) Ur Specific [place] (1.002-1.035) Urine Protein (Neg-Trace) mg/dL Urine Glucose (UA) (Negative) mg/dL Urine Ketones (Negative) mg/dL Urine Occult Blood (Negative) Urine Nitrate (Negative) Urine Bilirubin (Negative) Urine Urobilinogen (Less than 2) mg/dL Ur Leukocyte Esterase (Negative) Urine RBC (0-3) /hpf Urine WBC (0-5) /hpf Micro UA Comment Urine Culture Comments 02/04/18 02/04/18 Range/Units 13:40 13:45 WBC (4.0-11.0) th/mm3 RBC (4.50-5.90) mil/mm3 Hgb (13.0-17.0) gm/dL Hct (39.0-51.0) % MCV (80.0-100.0) fL MCH (27.0-34.0) pg MCHC (32.0-36.0) % RDW (11.6-17.2) % Plt Count (150-450) th/mm3 MPV (7.0-11.0) fL Neut % (Auto) (16.0-70.0) % Lymph % (Auto) (9.0-44.0) % Upson % (Auto) (0.0-8.0) % Eos % (Auto) (0.0-4.0) % Baso % (Auto) (0.0-2.0) % Neut # (Auto) (1.8-7.7) th/mm3 Lymph # (Auto) (1.0-4.8) th/mm3 Upson # (Auto) (0.0-0.9) th/mm3 Eos # (Auto) (0.0-0.4) th/mm3 Baso # (Auto) (0.0-0.2) th/mm3 WBC Differential Differential Comment PT (9.8-11.6) sec INR Ratio Sodium (136-145) meq/L Potassium (3.5-5.1) meq/L Chloride (98-107) meq/L Carbon Dioxide (21.0-32.0) meq/L Anion Gap (5-15) meq/L BUN (7-18) mg/dL Creatinine (0.60-1.30) mg/dL Estimated GFR (>89) mL/min Random Glucose (74-106) mg/dL Lactic Acid 0.9 (0.4-2.0) mmol/L Calcium (8.5-10.1) mg/dL Total Bilirubin (0.2-1.0) mg/dL AST (15-37) U/L ALT (12-78) U/L Alkaline Phosphatase (45-117) U/L Troponin I (0.02-0.05) ng/mL Total Protein (6.4-8.2) g/dL Albumin (3.4-5.0) g/dL Urine Color Straw (Yellw/Straw) Urine Clarity Clear (Clear) Urine pH 7.0 (5.0-8.5) Ur Specific [place] 1.010 (1.002-1.035) Urine Protein Negative (Neg-Trace) mg/dL Urine Glucose (UA) Negative (Negative) mg/dL Urine Ketones 20 (Negative) mg/dL Urine Occult Blood Small H (Negative) Urine Nitrate Negative (Negative) Urine Bilirubin Negative (Negative) Urine Urobilinogen Less than 2 (Less than 2) mg/dL Ur Leukocyte Esterase Negative (Negative) Urine RBC 2 (0-3) /hpf Urine WBC 2 (0-5) /hpf Micro UA Comment Culture not ind Urine Culture Comments Culture not ind Imaging Data Radiologist's impression: Chest X-Ray 02/04/18 13:14 CONCLUSION: No acute cardiopulmonary disease. Discharge Plan Discharge Disposition Patient Disposition: 30 Still Patient Discharge Condition Condition: Stable Discharge Details Diagnosis: Monocytosis, Weakness Physicians Team ED Provider: Alfredo Olmstead ED Midlevel Provider: Jeanne Horan Primary Care Provider: Gerson Payne Attending Provider: Stefany Dickerson Status ED Status: Admitted Observation Patient
[2018-02-04] MEDS ORDERED: Sod Chloride 0.9% Inj 1,000 ML IV.SIG ONE (13:42)
[2018-02-04 13:57] LABS: Baso % (Auto) 0.6 % (0.0-2.0); Eos % (Auto) 0.1 % (0.0-4.0); Hematocrit 40.3 % (39.0-51.0); Hemoglobin 13.6 gm/dL (13.0-17.0); Lymph # (Auto) 0.3 th/mm3 (1.0-4.8); Lymph % (Auto) 4.2 % (9.0-44.0); Mean Corpuscular HGB Conc 33.8 % (32.0-36.0); Mean Corpuscular Hemoglobin 33.5 pg (27.0-34.0); Mean Platelet Volume 7.3 fL (7.0-11.0); Mono # (Auto) 0.6 th/mm3 (0.0-0.9); Mono % (Auto) 9.3 % (0.0-8.0); Neut # (Auto) 5.2 th/mm3 (1.8-7.7); Neut % (Auto) 85.8 % (16.0-70.0); Platelet Count 106 th/mm3 (150-450); Red Blood Count 4.07 mil/mm3 (4.50-5.90); White Blood Count 6.1 th/mm3 (4.0-11.0)
[2018-02-04 14:05] LABS: INR 1.1 Ratio; Prothrombin Time 10.7 sec (9.8-11.6)
[2018-02-04 14:08] LABS: Bilirubin,Urine Negative (Negative); Clarity,Urine Clear (Clear); Color,Urine Straw (Yellw/Straw); Glucose,Urine (UA) Negative (Negative); Leukocyte Esterase,Urine Negative (Negative); Nitrite,Urine Negative (Negative)
[2018-02-04 14:12] LABS: Alanine Aminotransferase 24 U/L (12-78); Albumin 3.5 g/dL (3.4-5.0); Anion Gap 9 meq/L (5-15); Aspartate Aminotransferase 19 U/L (15-37); Blood Urea Nitrogen 19 mg/dL (7-18); Calcium 8.3 mg/dL (8.5-10.1); Carbon Dioxide 25.5 meq/L (21.0-32.0); Chloride 101 meq/L (98-107); Glomerular Filtration Rate 61 mL/min (>89); Glucose,Random 109 mg/dL (74-106); Potassium 3.5 meq/L (3.5-5.1); Sodium 135 meq/L (136-145)
[2018-02-04 14:16] LABS: Alkaline Phosphatase 68 U/L (45-117); Total Protein 6.8 g/dL (6.4-8.2); Troponin I 0.03 ng/mL (0.02-0.05)
--- NOTE | 2018-02-04 14:43 | XR ---
EXAM DATE: 02/04/2018 2:00 PM EDT AGE/SEX: 87 years / Male INDICATIONS: Fever. CLINICAL DATA: This is the patient's initial encounter. Patient reports that signs and symptoms have been present for 4 - 6 months and indicates a pain score of 0/10. MEDICAL/SURGICAL HISTORY: . Hypercholesterolemia. Hypertension. Hernia, hiatal. Syncope. GERD. Sleep apnea. Renal calculi. UTI. Prostate problems. Shingles. Arthritis. Gout. Anticoagulant therapy, Aspirin. Depression. Pacemaker. Bilateral cataract surgery with lens implants. Detached left retina . Cystoscopy. Right cheekbone fracture. 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 Spina l surgery, chemotherapy. COMPARISON: [facility], XR CHEST PA AND LAT, 12/10/2016. . FINDINGS: The lungs are clear without infiltrate, nodule, or mass. There is no appreciable pleural effusion for technique. Heart and mediastinum are unremarkable. Left subclavian transvenous pacer wi res are present with tips in the right atrium and right ventricle. CONCLUSION: No acute cardiopulmonary disease. Electronically signed by: Jenna Rai MD 02/04/2018 2:41 PM EDT
[2018-02-04] MEDS ORDERED: Sod Chloride 0.9% Inj 1,000 ML IV.CONT SCH (15:45)
--- NOTE | 2018-02-04 15:47 | P.HPFP ---
History of Present Illness Primary Care Physician: Gerson Payne MD <Stefany Dickerson M - 02/05/18 18:16> Gerson Payne MD <Ronn Vidales O - 02/04/18 15:47> History of Present Illness: This is an 87-year-old male with a past medical history of BPH, hypertension, syncope, frequent falls and recurrent UTIs that began 1 year ago who presents to the ED after 2 day history of intermittent weakness. Patient's was in the room at time of exam and added to the history. Patient has had 4 recurrences of weakness this year, and they are always associated with a concurrent UTI as well as chills. Yesterday, patient went to the ED [facility], had negative workup was hydrated and released home. This morning the patient woke up feeling fine but at 8:30 AM he felt cold began to have uncontrollable shakes and put a coat on. Despite wearing a coat patient was still shaking and this continued for another 30 minutes. Patient reports that his feeling of coldness and weakness is exactly the way he feels during previous episodes of urosepsis. Shortly after the patient went to the bathroom and fell down, attempted to help him get up but could not and sought assistance from their neighbors. There was no loss of consciousness, injuries including head, or incontinence. called health home care nurse who advised the patient goes to the emergency department. Per patient and his patient has had several falls as recently as one year ago, some of which have caused physical injury. Patient normally ambulates with walker. Patient denies tripping on anything, any prodromal symptoms, or confusion following fall. Patient's weakness has no alleviating or exacerbating factors and describes his weakness as having no energy to get up. Of note: Patient denies any dysuria, or feelings of incomplete void, but does report more frequent urination. Patient does have a history of TURP procedure due to benign prostate hyperplasia. Patient also is followed by urologist Dr. Eugene and was scheduled for cystoscopy this upcoming Wednesday. PMH: Surgical history: TURP, intracranial bleed due to fall requiring surgical decompression date of surgery unknown, and cardiac pacer also date of placement unknown. Medications: Isosorbide Mononitrate, amlodipine 5, Tamsulosin .8, esomeprazole 20, B-12, allopurinol 300mg, aspirin 81, Vitamin C, olmesartan 40. Allergies: MSG, reaction is throat swelling and vomiting. CODE STATUS: Full <Ronn Vidales 02/04/18 22:35> - Diagnosis (1) Weakness (2) Hypertension (3) BPH (benign prostatic hyperplasia) (4) Obstructive sleep apnea <Stefany Dickerson 02/05/18 18:16> (1) Weakness (2) Hypertension (3) BPH (benign prostatic hyperplasia) (4) Obstructive sleep apnea <Ronn Vidales 02/04/18 21:20> Review of Systems Constitutional: Reports chills, Reports lack of energy, Reports weakness, Denies body ache(s), Denies increased appetite <Ronn Vidales 02/04/18 22:35 > Comments: Patient describes his episodes of weakness to be associated with chills which cause uncontrollable shaking and cannot be alleviated by being warmed up. <Ronn Vidales 02/04/18 22:35> Eyes: Denies blurry vision, Denies change in vision <Ronn Vidales 02/04/18 22:35> Ears, Nose, Mouth, and Throat: Reports abnormal hearing <Ronn Vidales 02/04 22:35> Comments: Patient reports difficulty hearing and wears hearing aids in both ears <Ronn Vidales 02/04/18 22:35> Cardiovascular: Denies chest pain, Denies lightheadedness, Denies rapid, pounding, or irregular heartbeat, Denies shortness of breath <Ronn Vidales 02/04/18 22:35> Respiratory: Denies cough, Denies shortness of breath <Ronn Vidales 22:35> Gastrointestinal: Denies abdominal pain, Denies nausea, Denies vomiting < Ronn Vidales 02/04/18 22:35> Genitourinary: Reports blood in urine, Reports urinary frequency, Reports urinary incontinence, Denies decreased urination, Denies difficulty urinating, Denies painful urination, Denies side pain <Ronn Vidales 02/04/18 22:35> Comments: Patient reports history of small amounts of hematuria and was scheduled for cystoscopy with Dr. Eugene this upcoming Wednesday to address the issue. Patient also reports having what he calls a dribble of urine, and keeps a paper towel was undergarment to absorb any leakage. Patient feels like he completely voids when he does urinate. <Ronn Vidales - 02/04/18 22:35> Neurologic: Reports abnormal hearing, Reports frequent falls, Reports unsteadiness, Reports weakness, Denies abnormal movements, Denies abnormal speech, Denies abnormal walking, Denies confusion, Denies dizziness, Denies loss of vision, Denies memory loss, Denies numbness, Denies other visual disturbances, Denies convulsions, Denies seizure-like activity <Ronn Vidales 02/04/18 22:35> Psychiatric: Denies behavioral changes, Denies confusion <Ronn Vidales 22:35> PMFSH - History History Provided By: Patient, Family Member <Ronn Vidales 02/04/18 15:47> - Medical History Medical History: Medical History (Last Updated 02/04/18 @ 16:25 by Ronn Vidales MD, R1) Head injury Pacemaker Syncope BPH (benign prostatic hyperplasia) Cheek injury Degenerative disc disease Deviated septum GERD (gastroesophageal reflux disease) Gout History of frequent urinary tract infections Hypertension Obstructive sleep apnea on CPAP <Stefany Dickerson - 02/05/18 18:16> Medical History (Last Updated 02/04/18 @ 16:25 by Ronn Vidales MD, R1) Head injury Pacemaker Syncope BPH (benign prostatic hyperplasia) Cheek injury Degenerative disc disease Deviated septum GERD (gastroesophageal reflux disease) Gout History of frequent urinary tract infections Hypertension Obstructive sleep apnea on CPAP <Ronn Vidales - 02/04/18 16:45> - Surgical History Surgical History: Surgical History (Last Reviewed 02/04/18 @ 13:51 by Polina Gregg) Hx of joint replacement <Stefany Dickerson - 02/05/18 18:16> Surgical History (Last Reviewed 02/04/18 @ 13:51 by Polina Gregg) Hx of joint replacement <Ronn Vidales - 02/04/18 15:47> - Tobacco History Second Hand Smoke Exposure: No <VidalesRonn dior 02/04/18 15:47> Tobacco Use In Past 30 Days: No <Ronn Vidales 02/04/18 15:47> Smoking Status: Former smoker <Ronn Vidales 02/04/18 15:47> Tobacco Type: Cigarettes <Ronn Vidales 02/04/18 15:47> - Alcohol History How Often Do You Have a Drink Containing Alcohol: 2 to 4 times a month <Ronn Vidales 02/04/18 15:47> - Substance Use History Substance History: No History of Abuse <Ronn Vidales 02/04/18 15:47> - Travel History Recent Travel Out of the Country Within the Last 8 Weeks: No <Ronn Vidales 02/04/18 15:47> - Immunization History Tetanus Immunization: >5 Years <Ronn Vidales 02/04/18 15:47> Hx Influenza Vaccine This Season: Yes <Ronn Vidales 02/04/18 15:47> Medications and Allergies Allergies Allergy/AdvReac Type Severity Reaction Status Date / Time monosodium glutamate AdvReac Severe Nausea/Vomi Verified 02/04/18 13:03 ting <Stefany Dickerson - 02/05/18 18:16> Home Medications Medication Instructions Recorded Confirmed Type allopurinol 300 mg PO DAILY 02/03/18 02/04/18 History amlodipine-olmesartan 1 tab PO DAILY 02/03/18 02/04/18 History ascorbic acid (vitamin C) 100 mg PO DAILY 02/03/18 02/04/18 History aspirin [Aspir-81] 81 mg PO DAILY 02/03/18 02/04/18 History cyanocobalamin (vitamin B-12) 100 mcg PO DAILY 02/03/18 02/04/18 History esomeprazole magnesium 20 mg PO DAILY 02/03/18 02/04/18 History tamsulosin 0.8 mg PO DAILY 02/03/18 02/04/18 History <Stefany Dickerson - 02/05/18 18:16> Active Medications: Active Medications Acetaminophen (Tylenol) 650 mg PO Q4H PRN PRN Reason: Temp > 100.4 Al Hydroxide/Mg Hydroxide (Milk Of Magnesia Liq) 30 ml PO Q12H PRN PRN Reason: Mild Constipation Amlodipine Besylate (Norvasc) 5 mg PO DAILY [facility] Last Admin: 02/05/18 09:12 Dose: 5 mg Bisacodyl (Dulcolax Supp) 10 mg RECTAL DAILY PRN PRN Reason: SEVERE CONSITIPATION Sodium Chloride (Ns Inj) 1,000 mls @ 50 mls/hr IV.CONT .Q20H [facility] Last Admin: 02/05/18 17:14 Dose: 130 mls/hr Lactulose (Lactulose Liq) 30 ml PO DAILY PRN PRN Reason: SEVERE CONSITIPATION Losartan Potassium (Cozaar) 100 mg PO DAILY [facility] Last Admin: 02/05/18 09:12 Dose: 100 mg Ondansetron HCl (Zofran Inj) 4 mg IV.PUSH Q6H PRN PRN Reason: NAUSEA OR VOMITING Senna/Docusate Sodium (Jackeline-Colace) 1 tab PO BID PRN PRN Reason: MILD CONSTIPATION Sennosides (Senokot) 17.2 mg PO Q12H PRN PRN Reason: Moderate Constipation Sodium Chloride (Ns Flush) 2 ml IV.FLUSH PRN PRN PRN Reason: FLUSH AFTER USING IV ACCESS <Stefany Dickerson M - 02/05/18 18:16> Active Medications Sodium Chloride (Ns Inj) 1,000 mls @ 125 mls/hr IV.CONT .Q8H [facility] Sodium Chloride (Ns Flush) 2 ml IV.FLUSH PRN PRN PRN Reason: FLUSH AFTER USING IV ACCESS <Ronn Vidales O - 02/04/18 15:47> Exam Vital signs: Vital Signs 02/04/18 18:33 02/04/18 20:00 02/04/18 22:15 Temperature 97.8 F 98.1 F Pulse Rate 67 60 Respiratory Rate 16 18 Blood Pressure 116/75 148/70 H Pulse Oximetry 93 L 94 L 98 02/05/18 00:00 02/05/18 04:00 02/05/18 08:00 Temperature 98 F 95.5 F L Pulse Rate 63 60 65 Respiratory Rate 17 18 18 Blood Pressure 158/76 H 151/80 H 150/79 H Pulse Oximetry 98 97 94 L 02/05/18 09:20 02/05/18 09:37 02/05/18 12:00 Temperature 97.5 F L Pulse Rate 59 L 60 Respiratory Rate 18 Blood Pressure 151/82 H Pulse Oximetry 97 93 L 02/05/18 16:00 Temperature 97.5 F L Pulse Rate 60 Respiratory Rate 18 Blood Pressure 154/81 H Pulse Oximetry 95 Intake & Output 02/04/18 02/05/18 02/05/18 18:59 06:59 18:59 Intake Total 365 / 365 1000 / 1000 3000 / 3000 Output Total 900 / 900 1050 / 1050 Balance -535 / -535 -50 / -50 3000 / 3000 Weight 90.718 kg 90.2 kg Intake: IV 125 / 125 1000 / 1000 3000 / 3000 NS Inj 1,000 ML @ 50 mls/hr IV. 125 / 125 1000 / 1000 2000 / 2000 CONT .Q20H LITA Rx#:[id number] Oral 240 / 240 Output: Urine 900 / 900 1050 / 1050 Other: # Voids 1 Date of Last Bowel Movement 02/05/18 <Stefany Dickerson - 02/05/18 18:16> Vital Signs 02/04/18 12:44 02/04/18 13:14 Temperature 99.9 F H 98.6 F Pulse Rate 114 H 89 Respiratory Rate 16 20 Blood Pressure 142/82 H 123/67 Pulse Oximetry 95 Intake & Output 02/03/18 02/04/18 02/04/18 18:59 06:59 18:59 Output Total 400 / 400 Balance -400 / -400 Weight 90.718 kg Output: Urine 400 / 400 Other: # Voids 1 <Ronn Vidales 02/04/18 15:47> - Constitutional no acute distress, average body habitus, cooperative <Ronn Vidales 22:35> - Routine HEENT Exam Head: Present: normocephalic, atraumatic. Absent: abrasion, laceration, facial swelling <Ronn Vidales 02/04/18 22:35> Eye: Present: EOMI, PERRL, normal accommodation. Absent: scleral injection, conjunctivae pink, periorbital ecchymosis, periorbital swelling <Ronn Vidales 02/04/18 22:35> ENT: Present: mucous membranes moist <Ronn Vidales 02/04/18 22:35> - Routine Neck Exam Present: supple. Absent: carotid bruit <Ronn Vidales 02/04/18 22:35> - Routine Chest/Breast/Axilla Exam Chest wall: Absent: tenderness <Ronn Vidales 02/04/18 22:35> Axillae: Absent: lymphadenopathy <Ronn Vidales 02/04/18 22:35> - Routine Respiratory Exam Present: CTA bilaterally. Absent: rales, respiratory distress, rhonchi, stridor , wheezes, crackles, distant breath sounds, diminished air movement <Ronn Vidales 02/04/18 22:35> - Routine Cardiovascular Exam Present: RRR, S1, S2. Absent: murmur, gallop, rubs <Ronn Vidales 02/04/18 22:35> - Routine Abdominal Exam Present: soft, normoactive bowel sounds. Absent: tenderness, distended, rebound , guarding <Ronn Vidales 02/04/18 22:35> - Routine Extremities Exam Present: full ROM, pulses intact. Absent: cyanosis, clubbing <Ronn Vidales 02/04/18 22:35> - Routine Skin Exam Present: intact. Absent: cyanosis, erythema <Ronn Vidales 02/04/18 22:35> - Routine Neurological Exam Present: alert, oriented X3, CN II-XII intact, moving all extremities, normal tone, vision grossly intact, normal speech. Absent: sensory deficit, motor deficit, altered mental status, nystagmus, hearing grossly intact, hemineglect, fasciculations, facial asymmetry, tremors <Ronn Vidales 02/04/18 22:35> Full neuro exam was completed and the patient had no gross sensory or motor deficits. Strength was equal on bilaterally in both upper and lower extremities. <Ronn Vidales 02/04/18 22:35> Results - Labs Result diagrams: 02/05/18 08:15 02/05/18 08:15 <Stefany Dickerson - 02/05/18 18:16> Abnormal lab results 02/05/18 02/05/18 Range/Units 08:15 08:15 WBC 3.9 L (4.0-11.0) th/mm3 RBC 3.81 L (4.50-5.90) mil/mm3 Hct 38.4 L (39.0-51.0) % MCV 100.6 H (80.0-100.0) fL Plt Count 96 L (150-450) th/mm3 Motley % (Auto) 13.9 H (0.0-8.0) % Lymph # (Auto) 0.6 L (1.0-4.8) th/mm3 Platelet Estimate Low L (Normal) Potassium 3.4 L (3.5-5.1) meq/L Estimated GFR 78 L (>89) mL/min Random Glucose 118 H (74-106) mg/dL Calcium 8.3 L (8.5-10.1) mg/dL Short CBC 02/05/18 Range/Units 08:15 WBC 3.9 L (4.0-11.0) th/mm3 Hgb 13.0 (13.0-17.0) gm/dL Hct 38.4 L (39.0-51.0) % Plt Count 96 L (150-450) th/mm3 [facility] 02/05/18 08:15 Sodium 139 Potassium 3.4 L Chloride 105 Carbon Dioxide 25.5 BUN 12 Creatinine 0.92 Calcium 8.3 L <Stefany Dickerson M - 02/05/18 18:16> Abnormal lab results 02/04/18 02/04/18 02/04/18 Range/Units 13:40 13:40 13:45 RBC 4.07 L (4.50-5.90) mil/mm3 Plt Count 106 L (150-450) th/mm3 Neut % (Auto) 85.8 H (16.0-70.0) % Lymph % (Auto) 4.2 L (9.0-44.0) % Motley % (Auto) 9.3 H (0.0-8.0) % Lymph # (Auto) 0.3 L (1.0-4.8) th/mm3 Sodium 135 L (136-145) meq/L BUN 19 H (7-18) mg/dL Estimated GFR 61 L (>89) mL/min Random Glucose 109 H (74-106) mg/dL Calcium 8.3 L (8.5-10.1) mg/dL Urine Occult Blood Small H (Negative) Short CBC 02/04/18 Range/Units 13:40 WBC 6.1 (4.0-11.0) th/mm3 Hgb 13.6 (13.0-17.0) gm/dL Hct 40.3 (39.0-51.0) % Plt Count 106 L (150-450) th/mm3 BMP 02/04/18 13:40 Sodium 135 L Potassium 3.5 Chloride 101 Carbon Dioxide 25.5 BUN 19 H Creatinine 1.14 Calcium 8.3 L Cardiac Enzymes 02/04/18 Range/Units 13:40 Troponin I 0.03 (0.02-0.05) ng/mL Liver Function 02/04/18 Range/Units 13:40 Total Bilirubin 0.8 (0.2-1.0) mg/dL AST 19 (15-37) U/L ALT 24 (12-78) U/L Alkaline Phosphatase 68 (45-117) U/L Albumin 3.5 (3.4-5.0) g/dL Urine 02/04/18 Range/Units 13:45 Urine Color Straw (Yellw/Straw) Urine Clarity Clear (Clear) Urine pH 7.0 (5.0-8.5) Ur Specific [place] 1.010 (1.002-1.035) Urine Protein Negative (Neg-Trace) mg/dL Urine Glucose (UA) Negative (Negative) mg/dL <Ronn Vidales 02/04/18 15:47> - Imaging Impressions Chest X-Ray 02/04/18 13:14 CONCLUSION: No acute cardiopulmonary disease. <Ronn Vidales 02/04/18 15:47> Caprini VTE Risk Assessment Caprini VTE Risk Assessment: No/Low Risk (score <= 1) <Ronn Vidales 22:35> Caprini Risk Assessment Model: Point Value = 1 Point Value = 2 Point Value = 3 Point Value = 5 Age 41-60 Minor surgery BMI > 25 kg/m2 Swollen legs Varicose veins or History of unexplained or recurrent spontaneous Oral contraceptives or hormone replacement Sepsis (< 1 month) Serious lung disease, including pneumonia (< 1 month) Abnormal pulmonary function Acute myocardial infarction Congestive heart failure (< 1 month) History of inflammatory bowel disease Medical patient at bed rest Age 61-74 Arthroscopic surgery Major open surgery (> 45 min) Laparoscopic surgery (> 45 min) Malignancy Confined to bed (> 72 hours) Immobilizing plaster cast Central venous access Age >= 75 History of VTE Family history of VTE Factor V Leiden Prothrombin [id number] Lupus anticoagulant Anticardiolipin antibodies Elevated serum homocysteine Heparin-induced thrombocytopenia Other congenital or acquired thrombophilia Stroke (< 1 month) Elective arthroplasty Hip, pelvis, or leg fracture Acute spinal cord injury (< 1 month) <Stefany Dickerson M - 02/05/18 18:16> Point Value = 1 Point Value = 2 Point Value = 3 Point Value = 5 Age 41-60 Minor surgery BMI > 25 kg/m2 Swollen legs Varicose veins or History of unexplained or recurrent spontaneous Oral contraceptives or hormone replacement Sepsis (< 1 month) Serious lung disease, including pneumonia (< 1 month) Abnormal pulmonary function Acute myocardial infarction Congestive heart failure (< 1 month) History of inflammatory bowel disease Medical patient at bed rest Age 61-74 Arthroscopic surgery Major open surgery (> 45 min) Laparoscopic surgery (> 45 min) Malignancy Confined to bed (> 72 hours) Immobilizing plaster cast Central venous access Age >= 75 History of VTE Family history of VTE Factor V Leiden Prothrombin [id number] Lupus anticoagulant Anticardiolipin antibodies Elevated serum homocysteine Heparin-induced thrombocytopenia Other congenital or acquired thrombophilia Stroke (< 1 month) Elective arthroplasty Hip, pelvis, or leg fracture Acute spinal cord injury (< 1 month) <Ronn Vidales - 02/04/18 15:47> Prophylaxis Regimen: Total Risk Factor Score Risk Level Prophylaxis Regimen 0-1 Low Early ambulation 2 Moderate Order ONE of the following: *Sequential Compression Device (SCD) *Heparin 5000 units SQ BID 3-4 Higher Order ONE of the following medications: *Heparin 5000 units SQ TID *Enoxaparin/Lovenox 40 mg SQ daily (WT < 150 kg, CrCl > 30 mL/min) *Enoxaparin/Lovenox 30 mg SQ daily (WT < 150 kg, CrCl > 10-29 mL/min) *Enoxaparin/Lovenox 30 mg SQ BID (WT < 150 kg, CrCl > 30 mL/min) AND/OR *Sequential Compression Device (SCD) 5 or more Highest Order ONE of the following medications: *Heparin 5000 units SQ TID (Preferred with Epidurals) *Enoxaparin/Lovenox 40 mg SQ daily (WT < 150 kg, CrCl > 30 mL/min) *Enoxaparin/Lovenox 30 mg SQ daily (WT < 150 kg, CrCl > 10-29 mL/min) *Enoxaparin/Lovenox 30 mg SQ BID (WT < 150 kg, CrCl > 30 mL/min) AND *Sequential Compression Device (SCD) <TuanSydStefany M - 02/05/18 18:16> Total Risk Factor Score Risk Level Prophylaxis Regimen 0-1 Low Early ambulation 2 Moderate Order ONE of the following: *Sequential Compression Device (SCD) *Heparin 5000 units SQ BID 3-4 Higher Order ONE of the following medications: *Heparin 5000 units SQ TID *Enoxaparin/Lovenox 40 mg SQ daily (WT < 150 kg, CrCl > 30 mL/min) *Enoxaparin/Lovenox 30 mg SQ daily (WT < 150 kg, CrCl > 10-29 mL/min) *Enoxaparin/Lovenox 30 mg SQ BID (WT < 150 kg, CrCl > 30 mL/min) AND/OR *Sequential Compression Device (SCD) 5 or more Highest Order ONE of the following medications: *Heparin 5000 units SQ TID (Preferred with Epidurals) *Enoxaparin/Lovenox 40 mg SQ daily (WT < 150 kg, CrCl > 30 mL/min) *Enoxaparin/Lovenox 30 mg SQ daily (WT < 150 kg, CrCl > 10-29 mL/min) *Enoxaparin/Lovenox 30 mg SQ BID (WT < 150 kg, CrCl > 30 mL/min) AND *Sequential Compression Device (SCD) <Ronn Vidales - 02/04/18 15:47> Assessment and Plan - Assessment (1) Weakness Code(s): R53.1 - Weakness Status: Acute (2) Hypertension Code(s): I10 - Essential (primary) hypertension Status: Acute (3) BPH (benign prostatic hyperplasia) Code(s): N40.0 - Benign prostatic hyperplasia without lower urinary tract symptoms Status: Acute (4) Obstructive sleep apnea Code(s): G47.33 - Obstructive sleep apnea (adult) (pediatric) Status: Acute <Stefany Dickreson - 02/05/18 18:16> (1) Weakness Code(s): R53.1 - Weakness Status: Acute Plan: Patient has significant history of frequent falls and a one-year history of 4 episodes of weakness associated with chills that also concurrent when patient is experiencing a UTI. In the ED patient was found to have normal white count, no metabolic disturbances, normal calcium, normal magnesium, and a urine culture positive only for a small amount of occult blood. Patient also had an x -ray that showed no acute cardiopulmonary changes. Blood cultures were ordered. H/H was 13.6/40.3. Ammonia level pending. In spite of patient feeling weak at the time of exam he had a grossly normal neurological exam. In light of his symptoms patient was admitted for observation for weakness. -Follow-up with 12-lead ECG -Monitor on telemetry -trend white count -Trend H/H -Follow-up with ammonia levels -Trend BMP -Follow-up with blood cultures -Frequent neuro checks -Monitor vitals -Monitor I's and O's -Only ambulate with assistance -Follow-up with PT recommendations (2) Hypertension Code(s): I10 - Essential (primary) hypertension Status: Acute Plan: This patient has a history of hypertension. Status post pacemaker, date of placement unknown. Patient currently stable and had a blood pressure reading of 124/77 upon admission. Patient on olmesartan 40 at home and amlodipine 5, as well as on isosorbide mononitrate at home. -Continue home medications (3) BPH (benign prostatic hyperplasia) Code(s): N40.0 - Benign prostatic hyperplasia without lower urinary tract symptoms Status: Acute Plan: This patient suffers from benign prostatic hyperplasia and is status post TURP procedure. Patient also has history of microhematuria and is being followed by outpatient urology by Dr. Eugene. Patient currently scheduled for cystoscopy procedure this upcoming Wednesday with Dr. Eugene. H/H currently stable, patient reports no dysuria but does report urinary frequency as well as some urinary dribble. UA in the ED was positive for occult blood but negative for UTI. Patient currently on tamsulosin 0.8. Patient not experiencing any urinary retention. -Continue tamsulosin 0.8 -Patient to follow-up with Dr. Eugene upon discharge. (4) Obstructive sleep apnea Code(s): G47.33 - Obstructive sleep apnea (adult) (pediatric) Status: Acute Plan: Patient currently suffers from obstructive sleep apnea and uses CPAP at home. Patient reports setting pressures to be 7. -Continue CPAP treatment inpatient. <Ronn Vidales - 02/04/18 21:20> - Attending Attestation The exam, history, and the medical decision-making described in the above note were completed with the assistance of the resident physician. I reviewed and agree with the findings presented. I attest that I had a [id number] encounter with the patient on the same day, and personally performed and documented my assessment and findings in the medical record. saw Mr Cam on his day of admission in the observation pod. <Stefany Dickerson - 02/05/18 18:16>
[2018-02-04] MEDS ORDERED: Senna/Docusate Sodium 8.6/50 MG Tablet PO PRN (16:33)
[2018-02-04] MEDS ORDERED: Acetaminophen 325 MG Tablet PO PRN (16:33)
[2018-02-04] MEDS ORDERED: Bisacodyl 10 MG Supp RECTAL PRN (16:33)
[2018-02-04] MEDS: Sod Chloride 0.9% Inj 1,000 ML IV.CONT SCH (16:53)
[2018-02-05] MEDS: Sod Chloride 0.9% Inj 1,000 ML IV.CONT SCH ×3 (02:24→17:14)
[2018-02-05 09:04] LABS: Baso % (Auto) 0.6 % (0.0-2.0); Eos # (Auto) 0.1 th/mm3 (0.0-0.4); Eos % (Auto) 2.5 % (0.0-4.0); Hematocrit 38.4 % (39.0-51.0); Lymph # (Auto) 0.6 th/mm3 (1.0-4.8); Lymph % (Auto) 14.7 % (9.0-44.0); Mean Corpuscular HGB Conc 33.8 % (32.0-36.0); Mean Corpuscular Volume 100.6 fL (80.0-100.0); Mean Platelet Volume 7.6 fL (7.0-11.0); Mono # (Auto) 0.5 th/mm3 (0.0-0.9); Mono % (Auto) 13.9 % (0.0-8.0); Neut # (Auto) 2.6 th/mm3 (1.8-7.7); Neut % (Auto) 68.3 % (16.0-70.0); Platelet Count 96 th/mm3 (150-450); Red Blood Count 3.81 mil/mm3 (4.50-5.90); Red Cell Distribution Width 13.8 % (11.6-17.2); White Blood Count 3.9 th/mm3 (4.0-11.0)
[2018-02-05] MEDS: amLODIPine 5 MG Tablet PO SCH (09:12)
[2018-02-05 09:23] LABS: Calcium 8.3 mg/dL (8.5-10.1); Carbon Dioxide 25.5 meq/L (21.0-32.0); Potassium 3.4 meq/L (3.5-5.1)
--- NOTE | 2018-02-05 10:41 | P.HPFP ---
History of Present Illness Primary Care Physician: Gerson Payne MD History of Present Illness: This is an 87-year-old male with a past medical history of BPH, hypertension, syncope, frequent falls and recurrent UTIs that began 1 year ago who presented to the ED after 2 day history of intermittent weakness. Patient has had 4 recurrences of weakness this year, and they are always associated with a concurrent UTI as well as chills. the day prior to admission , patient went to the ED [facility], had negative workup was hydrated and released home. This morning the patient woke up feeling fine but at 8:30 AM he felt cold began to have uncontrollable shakes and put a coat on. Despite wearing a coat patient was still shaking and this continued for another 30 minutes. Patient reports that his feeling of coldness and weakness is exactly the way he feels during previous episodes of urosepsis. Shortly after the patient went to the bathroom and fell down, attempted to help him get up but could not and sought assistance from their neighbors. There was no loss of consciousness, injuries including head, or incontinence. called health home care nurse who advised the patient goes to the emergency department. Per patient and his patient has had several falls as recently as one year ago, some of which have caused physical injury. Patient normally ambulates with walker. Patient denies tripping on anything, any prodromal symptoms, or confusion following fall. Patient's weakness has no alleviating or exacerbating factors and describes his weakness as having no energy to get up. He also reported his [facility] nurse checked a temperature on him at home and it was 102.7. Fortunately, here in the hospital he has had no further temperature elevations. Of note: Patient denies any dysuria, or feelings of incomplete void, but does report more frequent urination. Patient does have a history of TURP procedure due to benign prostate hyperplasia. Patient also is followed by urologist Dr. Eugene and was scheduled for cystoscopy this upcoming Wednesday. PMH: Surgical history: TURP, intracranial bleed due to fall requiring surgical decompression date of surgery unknown, and cardiac pacer also date of placement unknown. Medications: Isosorbide Mononitrate, amlodipine 5, Tamsulosin .8, esomeprazole 20, B-12, allopurinol 300mg, aspirin 81, Vitamin C, olmesartan 40. Allergies: MSG, reaction is throat swelling and vomiting. CODE STATUS: Full - Diagnosis (1) Weakness (2) Hypertension (3) BPH (benign prostatic hyperplasia) (4) Obstructive sleep apnea Review of Systems see his H&P from yesterday [facility] - History History Provided By: Patient, Family Member - Medical History Medical History: Medical History (Last Updated 02/04/18 @ 16:25 by Ronn Vidales MD, R1) Head injury Pacemaker Syncope BPH (benign prostatic hyperplasia) Cheek injury Degenerative disc disease Deviated septum GERD (gastroesophageal reflux disease) Gout History of frequent urinary tract infections Hypertension Obstructive sleep apnea on CPAP - Surgical History Surgical History: Surgical History (Last Reviewed 02/04/18 @ 13:51 by Polina Gregg) Hx of joint replacement - Tobacco History Second Hand Smoke Exposure: No Tobacco Use In Past 30 Days: No Smoking Status: Former smoker Tobacco Type: Cigarettes - Alcohol History How Often Do You Have a Drink Containing Alcohol: 2 to 4 times a month - Substance Use History Substance History: No History of Abuse - Travel History Recent Travel Out of the Country Within the Last 8 Weeks: No - Immunization History Tetanus Immunization: >5 Years Hx Influenza Vaccine This Season: Yes Medications and Allergies Active Medications: Active Medications Acetaminophen (Tylenol) 650 mg PO Q4H PRN PRN Reason: Temp > 100.4 Al Hydroxide/Mg Hydroxide (Milk Of Magnesia Liq) 30 ml PO Q12H PRN PRN Reason: Mild Constipation Amlodipine Besylate (Norvasc) 5 mg PO DAILY [facility] Last Admin: 02/05/18 09:12 Dose: 5 mg Bisacodyl (Dulcolax Supp) 10 mg RECTAL DAILY PRN PRN Reason: SEVERE CONSITIPATION Sodium Chloride (Ns Inj) 1,000 mls @ 130 mls/hr IV.CONT .Q7H42M [facility] Last Admin: 02/05/18 09:13 Dose: 130 mls/hr Lactulose (Lactulose Liq) 30 ml PO DAILY PRN PRN Reason: SEVERE CONSITIPATION Losartan Potassium (Cozaar) 100 mg PO DAILY [facility] Last Admin: 02/05/18 09:12 Dose: 100 mg Ondansetron HCl (Zofran Inj) 4 mg IV.PUSH Q6H PRN PRN Reason: NAUSEA OR VOMITING Senna/Docusate Sodium (Jackeline-Colace) 1 tab PO BID PRN PRN Reason: MILD CONSTIPATION Sennosides (Senokot) 17.2 mg PO Q12H PRN PRN Reason: Moderate Constipation Sodium Chloride (Ns Flush) 2 ml IV.FLUSH PRN PRN PRN Reason: FLUSH AFTER USING IV ACCESS Allergies Allergy/AdvReac Type Severity Reaction Status Date / Time monosodium glutamate AdvReac Severe Nausea/Vomi Verified 02/04/18 13:03 ting Home Medications Medication Instructions Recorded Confirmed Type allopurinol 300 mg PO DAILY 02/03/18 02/04/18 History amlodipine-olmesartan 1 tab PO DAILY 02/03/18 02/04/18 History ascorbic acid (vitamin C) 100 mg PO DAILY 02/03/18 02/04/18 History aspirin [Aspir-81] 81 mg PO DAILY 02/03/18 02/04/18 History cyanocobalamin (vitamin B-12) 100 mcg PO DAILY 02/03/18 02/04/18 History esomeprazole magnesium 20 mg PO DAILY 02/03/18 02/04/18 History tamsulosin 0.8 mg PO DAILY 02/03/18 02/04/18 History Exam Vital signs: Vital Signs 02/04/18 12:44 02/04/18 13:14 02/04/18 16:30 Temperature 99.9 F H 98.6 F Pulse Rate 114 H 89 69 Respiratory Rate 16 20 Blood Pressure 142/82 H 123/67 Pulse Oximetry 95 02/04/18 16:33 02/04/18 18:33 02/04/18 20:00 Temperature 98.1 F 97.8 F 98.1 F Pulse Rate 83 67 60 Respiratory Rate 18 16 18 Blood Pressure 124/77 116/75 148/70 H Pulse Oximetry 95 93 L 94 L 02/04/18 22:15 02/05/18 00:00 02/05/18 04:00 Temperature 98 F Pulse Rate 63 60 Respiratory Rate 17 18 Blood Pressure 158/76 H 151/80 H Pulse Oximetry 98 98 97 02/05/18 08:00 02/05/18 09:37 Temperature 95.5 F L Pulse Rate 65 Respiratory Rate 18 Blood Pressure 150/79 H Pulse Oximetry 94 L 97 Intake & Output 02/04/18 02/05/18 02/05/18 18:59 06:59 18:59 Intake Total 365 / 365 999 / 1000 1999 Output Total 900 / 900 1050 / 1050 Balance -535 / -535 -50 / -50 1999 Weight 90.718 kg 90.2 kg Intake: IV 125 / 125 999 / 1000 1999 NS Inj 1,000 ML @ 130 mls/hr IV 125 / 125 1000 / 1000 999 / 999 .CONT .Q7H42M [facility] Rx#:[id number] Oral 240 / 240 Output: Urine 900 / 900 1050 / 1050 Other: # Voids 1 - Constitutional no acute distress, average body habitus, cooperative - Routine HEENT Exam Head: Present: normocephalic, atraumatic. Absent: cushingoid faces, hematoma, facial swelling Eye: Present: EOMI. Absent: conjunctival icterus, scleral injection, periorbital swelling, periorbital tenderness, nystagmus ENT: Present: external ear normal. Absent: septal deviation - Routine Neck Exam Present: supple, full ROM - Routine Respiratory Exam Present: CTA bilaterally, rales (lower lung [place] that largely cleared with deep breathing and a cough). Absent: accessory muscle use - Routine Cardiovascular Exam Present: RRR. Absent: murmur, gallop, rubs, irregular rhythm, irregularly irregular - Routine Abdominal Exam Present: soft. Absent: tenderness, distended, rebound, guarding, firm, drain, ostomy - Routine Extremities Exam Present: full ROM. Absent: cyanosis, clubbing, edema, calf tenderness - Routine Skin Exam Present: intact, dry, warm. Absent: cyanosis, erythema, mottling, petechiae, cracked, gangrene, ecchymosis - Routine Neurological Exam Present: alert, CN II-XII intact, moving all extremities, normal tone. Absent: sensory deficit, motor deficit, altered mental status, nystagmus, hemineglect Results - Labs Result diagrams: 02/05/18 08:15 02/05/18 08:15 Abnormal lab results 02/04/18 02/04/18 02/04/18 Range/Units 13:40 13:40 13:45 WBC (4.0-11.0) th/mm3 RBC 4.07 L (4.50-5.90) mil/mm3 Hct (39.0-51.0) % MCV (80.0-100.0) fL Plt Count 106 L (150-450) th/mm3 Neut % (Auto) 85.8 H (16.0-70.0) % Lymph % (Auto) 4.2 L (9.0-44.0) % [place] % (Auto) 9.3 H (0.0-8.0) % Lymph # (Auto) 0.3 L (1.0-4.8) th/mm3 Sodium 135 L (136-145) meq/L Potassium (3.5-5.1) meq/L BUN 19 H (7-18) mg/dL Estimated GFR 61 L (>89) mL/min Random Glucose 109 H (74-106) mg/dL Calcium 8.3 L (8.5-10.1) mg/dL Urine Occult Blood Small H (Negative) 02/05/18 02/05/18 Range/Units 08:15 08:15 WBC 3.9 L (4.0-11.0) th/mm3 RBC 3.81 L (4.50-5.90) mil/mm3 Hct 38.4 L (39.0-51.0) % MCV 100.6 H (80.0-100.0) fL Plt Count 96 L (150-450) th/mm3 Neut % (Auto) (16.0-70.0) % Lymph % (Auto) (9.0-44.0) % [place] % (Auto) 13.9 H (0.0-8.0) % Lymph # (Auto) 0.6 L (1.0-4.8) th/mm3 Sodium (136-145) meq/L Potassium 3.4 L (3.5-5.1) meq/L BUN (7-18) mg/dL Estimated GFR 78 L (>89) mL/min Random Glucose 118 H (74-106) mg/dL Calcium 8.3 L (8.5-10.1) mg/dL Urine Occult Blood (Negative) Short CBC 18 02/05/18 Range/Units 13:40 08:15 WBC 6.1 3.9 L (4.0-11.0) th/mm3 Hgb 13.6 13.0 (13.0-17.0) gm/dL Hct 40.3 38.4 L (39.0-51.0) % Plt Count 106 L 96 L (150-450) th/mm3 BMP 02/04/18 02/05/18 13:40 08:15 Sodium 135 L 139 Potassium 3.5 3.4 L Chloride 101 105 Carbon Dioxide 25.5 25.5 BUN 19 H 12 Creatinine 1.14 0.92 Calcium 8.3 L 8.3 L Cardiac Enzymes 02/04/18 Range/Units 13:40 Troponin I 0.03 (0.02-0.05) ng/mL Liver Function 02/04/18 Range/Units 13:40 Total Bilirubin 0.8 (0.2-1.0) mg/dL AST 19 (15-37) U/L ALT 24 (12-78) U/L Alkaline Phosphatase 68 (45-117) U/L Albumin 3.5 (3.4-5.0) g/dL Urine 02/04/18 Range/Units 13:45 Urine Color Straw (Yellw/Straw) Urine Clarity Clear (Clear) Urine pH 7.0 (5.0-8.5) Ur Specific [place] 1.010 (1.002-1.035) Urine Protein Negative (Neg-Trace) mg/dL Urine Glucose (UA) Negative (Negative) mg/dL - Imaging Impressions Chest X-Ray 02/04/18 13:14 CONCLUSION: No acute cardiopulmonary disease. Caprini VTE Risk Assessment Caprini VTE Risk Assessment: No/Low Risk (score <= 1) Caprini Risk Assessment Model: Point Value = 1 Point Value = 2 Point Value = 3 Point Value = 5 Age 41-60 Minor surgery BMI > 25 kg/m2 Swollen legs Varicose veins or History of unexplained or recurrent spontaneous Oral contraceptives or hormone replacement Sepsis (< 1 month) Serious lung disease, including pneumonia (< 1 month) Abnormal pulmonary function Acute myocardial infarction Congestive heart failure (< 1 month) History of inflammatory bowel disease Medical patient at bed rest Age 61-74 Arthroscopic surgery Major open surgery (> 45 min) Laparoscopic surgery (> 45 min) Malignancy Confined to bed (> 72 hours) Immobilizing plaster cast Central venous access Age >= 75 History of VTE Family history of VTE Factor V Leiden Prothrombin [id number] Lupus anticoagulant Anticardiolipin antibodies Elevated serum homocysteine Heparin-induced thrombocytopenia Other congenital or acquired thrombophilia Stroke (< 1 month) Elective arthroplasty Hip, pelvis, or leg fracture Acute spinal cord injury (< 1 month) Prophylaxis Regimen: Total Risk Factor Score Risk Level Prophylaxis Regimen 0-1 Low Early ambulation 2 Moderate Order ONE of the following: *Sequential Compression Device (SCD) *Heparin 5000 units SQ BID 3-4 Higher Order ONE of the following medications: *Heparin 5000 units SQ TID *Enoxaparin/Lovenox 40 mg SQ daily (WT < 150 kg, CrCl > 30 mL/min) *Enoxaparin/Lovenox 30 mg SQ daily (WT < 150 kg, CrCl > 10-29 mL/min) *Enoxaparin/Lovenox 30 mg SQ BID (WT < 150 kg, CrCl > 30 mL/min) AND/OR *Sequential Compression Device (SCD) 5 or more Highest Order ONE of the following medications: *Heparin 5000 units SQ TID (Preferred with Epidurals) *Enoxaparin/Lovenox 40 mg SQ daily (WT < 150 kg, CrCl > 30 mL/min) *Enoxaparin/Lovenox 30 mg SQ daily (WT < 150 kg, CrCl > 10-29 mL/min) *Enoxaparin/Lovenox 30 mg SQ BID (WT < 150 kg, CrCl > 30 mL/min) AND *Sequential Compression Device (SCD) Assessment and Plan - Assessment (1) Weakness Code(s): R53.1 - Weakness Status: Acute Plan: Patient has significant history of frequent falls and a one-year history of 4 episodes of weakness associated with chills that also concurrent when patient is experiencing a UTI. In the ED patient was found to have normal white count, no metabolic disturbances, normal calcium, normal magnesium, and a urine culture positive only for a small amount of occult blood. Patient also had an x -ray that showed no acute cardiopulmonary changes. Blood cultures were ordered. H/H was 13.6/40.3. Ammonia level pending. In spite of patient feeling weak at the time of exam he had a grossly normal neurological exam. In light of his symptoms patient was admitted for observation for weakness. -Follow-up with 12-lead ECG -Monitor on telemetry -trend white count -Trend H/H -Follow-up with ammonia levels -Trend BMP -Follow-up with blood cultures -Frequent neuro checks -Monitor vitals -Monitor I's and O's -Only ambulate with assistance -Follow-up with PT recommendations (2) Hypertension Code(s): I10 - Essential (primary) hypertension Status: Acute Plan: This patient has a history of hypertension. Status post pacemaker, date of placement unknown. Patient currently stable and had a blood pressure reading of 124/77 upon admission. Patient on olmesartan 40 at home and amlodipine 5, as well as on isosorbide mononitrate at home. -Continue home medications (3) BPH (benign prostatic hyperplasia) Code(s): N40.0 - Benign prostatic hyperplasia without lower urinary tract symptoms Status: Acute Plan: This patient suffers from benign prostatic hyperplasia and is status post TURP procedure. Patient also has history of microhematuria and is being followed by outpatient urology by Dr. Eugene. Patient currently scheduled for cystoscopy procedure this upcoming Wednesday with Dr. Eugene. H/H currently stable, patient reports no dysuria but does report urinary frequency as well as some urinary dribble. UA in the ED was positive for occult blood but negative for UTI. Patient currently on tamsulosin 0.8. Patient not experiencing any urinary retention. -Continue tamsulosin 0.8 -Patient to follow-up with Dr. Eugene upon discharge. (4) Obstructive sleep apnea Code(s): G47.33 - Obstructive sleep apnea (adult) (pediatric) Status: Acute Plan: Patient currently suffers from obstructive sleep apnea and uses CPAP at home. Patient reports setting pressures to be 7. -Continue CPAP treatment inpatient. he does not like the hospital's machine and will have his bring his own machine in H&P: Quality - VTE Deep Vein Thrombosis/Pulmonary Embolism Present on Admission: No
[2018-02-05 10:53] LABS: Platelet Morphology Normal (Normal)
--- NOTE | 2018-02-05 14:52 | ECG ---
Date Performed: 02/04/2018 Time Performed: 16:58:41 PTAGE: 87 years EKG: ELECTRONIC VENTRICULAR PACEMAKER Since previous tracing, no significant change noted ABNORM AL RHYTHM ECG PREVIOUS TRACING : 02/03/2018 13.33 DOCTOR: Kirit Odell Interpretating Date/Time 02/05/2018 14:51:24
[2018-02-06 08:26] VITALS: RESP 18
[2018-02-06] MEDS: amLODIPine 5 MG Tablet PO SCH (08:45)
--- NOTE | 2018-02-06 10:27 | P.PNFP ---
Subjective Interval history: Patient was seen at bedside this morning. There were no acute events overnight and reports feeling overall well. Patient reports feeling no significant weakness or dizziness since admission. He did admit to a slight weakness this morning that was transient but nothing compared to when he first came in. It was discussed with the patient the benefits of rehabilitation. The patient is adamant about not going to rehab due to previous experiences and prefers to do something else such as home health. Of note the patient's however feels that rehab is necessary. Patient denies any subjective fevers, chills, shortness of breath, chest pain, nausea, or vomiting. All questions were answered to the patient's satisfaction. <Ronn Vidales - 02/06/18 13:20> Results - Labs Result diagrams: 02/06/18 11:53 02/05/18 08:15 <Stefany Dickerson - 02/10/18 14:10> Abnormal lab results 02/05/18 Range/Units 08:15 Platelet Estimate Low L (Normal) <Ronn Vidales - 02/06/18 10:27> Physical Exam Vital signs: Vital Signs 02/05/18 12:00 02/05/18 16:00 02/05/18 19:25 Temperature 97.5 F L 97.5 F L 97.6 F Pulse Rate 60 60 75 Respiratory Rate 18 18 20 Blood Pressure 151/82 H 154/81 H 150/88 H Pulse Oximetry 93 L 95 96 02/05/18 20:00 02/06/18 03:14 02/06/18 07:58 Temperature 98.4 F Pulse Rate 70 63 Respiratory Rate 20 Blood Pressure 159/88 H Pulse Oximetry 96 96 96 02/06/18 08:00 02/06/18 08:19 02/06/18 08:23 Temperature 97.8 F Pulse Rate 63 Respiratory Rate 18 Blood Pressure 171/88 H 165/83 H 151/89 H Pulse Oximetry 93 L Intake & Output 02/05/18 02/06/18 02/06/18 18:59 06:59 18:59 Intake Total 3000 / 3000 1000 / 1000 Output Total 550 / 550 Balance 3000 / 3000 -550 / -550 1000 / 1000 Intake: IV 3000 / 3000 1000 / 1000 NS Inj 1,000 ML @ 50 mls/hr IV. 1999 / 1999 1000 / 1000 CONT .Q20H [facility] Rx#:[id number] Output: Urine 550 / 550 Other: Date of Last Bowel Movement 02/05/18 02/06/18 <Ronn Vidales 02/06/18 10:27> - Constitutional no acute distress, average body habitus <Ronn Vidales 02/06/18 13:20> - Routine HEENT Exam Head: Present: normocephalic, atraumatic <Ronn Vidales 02/06/18 13:20> - Routine Respiratory Exam Present: CTA bilaterally. Absent: rales, respiratory distress, rhonchi, stridor , wheezes, crackles, distant breath sounds, diminished air movement <Ronn Vidales 02/06/18 13:20> - Routine Cardiovascular Exam Present: RRR, S1, S2. Absent: murmur, gallop <Ronn Vidales 02/06/18 13:20> - Routine Abdominal Exam Present: soft, normoactive bowel sounds. Absent: tenderness, distended, rebound , guarding <Ronn Vidales 02/06/18 13:20> - Routine Extremities Exam Present: pulses intact. Absent: cyanosis, clubbing, edema <Ronn Vidales 13:20> - Routine Skin Exam Present: intact. Absent: cyanosis, erythema, dry <Ronn Vidales 02/06/18 13 :20> - Routine Neurological Exam Present: alert, oriented X3, moving all extremities, vision grossly intact, normal speech. Absent: sensory deficit, motor deficit, altered mental status, facial asymmetry, tremors <Ronn Vidales 02/06/18 13:20> - Detailed Neurological Exam: Coma Scale Eye Opening: Spontaneous <Ronn Vidales 02/06/18 13:20> Verbal Response: Oriented <Ronn Vidales 02/06/18 13:20> Motor Response: Obey commands <Ronn Vidales 02/06/18 13:20> [place] Coma Scale Total: 15 <Ronn Vidales 02/06/18 13:20> - Routine Psychiatric Exam Present: normal affect, normal thought process, cooperative, good insight, good judgment. Absent: depressed, anxious <Ronn Vidales 02/06/18 13:20> Assessment and Plan - Assessment (1) Weakness Code(s): R53.1 - Weakness Status: Acute (2) Hypertension Code(s): I10 - Essential (primary) hypertension Status: Acute (3) BPH (benign prostatic hyperplasia) Code(s): N40.0 - Benign prostatic hyperplasia without lower urinary tract symptoms Status: Acute (4) Obstructive sleep apnea Code(s): G47.33 - Obstructive sleep apnea (adult) (pediatric) Status: Acute <Stefany Dickerson M - 02/10/18 14:10> (1) Weakness Code(s): R53.1 - Weakness Status: Acute Plan: Patient has significant history of frequent falls and a one-year history of 4 episodes of weakness associated with chills that also concurrent when patient is experiencing a UTI. In the ED patient was found to have normal white count, no metabolic disturbances, normal calcium, normal magnesium, and a urine culture positive only for a small amount of occult blood. Patient also had an x -ray that showed no acute cardiopulmonary changes. Blood cultures were ordered. H/H was 13.6/40.3. Ammonia level pending. In spite of patient feeling weak at the time of exam he had a grossly normal neurological exam. In light of his symptoms patient was admitted for observation for weakness. This morning the patient was able to get out of bed and stand unassisted and has been able to ambulate to the restroom with no issues. He currently is not experiencing any weakness or dizziness. During his inpatient observation patient has had normal labs, no growth in urine or blood culture after 2 days, and has not had repeat episodes of weakness or chills, and is currently asymptomatic. Upon recommendations of physical therapy patient will be discharged with home health. Patient to follow-up outpatient with his PCP. Also, follow-up with urology for cystoscopy this week. -Discharge home with home health per PT -Follow-up with PCP in 2 weeks (2) Hypertension Code(s): I10 - Essential (primary) hypertension Status: Acute Plan: This patient has a history of hypertension. Status post pacemaker, date of placement unknown. Patient on olmesartan 40 at home and amlodipine 5, as well as on isosorbide mononitrate at home. Overnight patient did experience some elevated blood pressures of 165/83 blood pressures normalized back down to 123/ 80 after receiving medication. -Continue home medications (3) BPH (benign prostatic hyperplasia) Code(s): N40.0 - Benign prostatic hyperplasia without lower urinary tract symptoms Status: Acute Plan: This patient suffers from benign prostatic hyperplasia and is status post TURP procedure. Patient also has history of microhematuria and is being followed by outpatient urology by Dr. Eugene. Patient currently scheduled for cystoscopy procedure this upcoming Wednesday with Dr. Eugene. H/H currently stable, patient reports no dysuria but does report urinary frequency as well as some urinary dribble. UA in the ED was positive for occult blood but negative for UTI. Patient currently on tamsulosin 0.8. Patient not experiencing any urinary retention. -Patient to follow-up with Dr. Eugene upon discharge. (4) Obstructive sleep apnea Code(s): G47.33 - Obstructive sleep apnea (adult) (pediatric) Status: Acute Plan: Patient currently suffers from obstructive sleep apnea and uses CPAP at home. Patient reports setting pressures to be 7. -Continue CPAP treatment outpatient. <Ronn Vidales - 02/06/18 13:05> - Attending Attestation The exam, history, and the medical decision-making described in the above note were completed with the assistance of the resident physician. I reviewed and agree with the findings presented. I attest that I had a [id number] encounter with the patient on the same day, and personally performed and documented my assessment and findings in the medical record. spoke at length with he and his . she was very concerned he could become sick again and was worried about him not being able to walk. i discussed that getting infections or even sepsis could happen very suddenly but sometimes there was no way to prevent this. he was walking well and she was comfortable with him coming home <Stefany Dickerson M - 02/10/18 14:10>
[2018-02-06 12:23] LABS: Hematocrit 43.3 % (39.0-51.0); Hemoglobin 14.6 gm/dL (13.0-17.0); Mean Corpuscular HGB Conc 33.7 % (32.0-36.0); Mean Corpuscular Hemoglobin 33.5 pg (27.0-34.0); Mean Corpuscular Volume 99.4 fL (80.0-100.0); Mean Platelet Volume 7.5 fL (7.0-11.0); Platelet Count 127 th/mm3 (150-450); Red Blood Count 4.35 mil/mm3 (4.50-5.90); Red Cell Distribution Width 14.1 % (11.6-17.2); White Blood Count 4.2 th/mm3 (4.0-11.0)
[2018-02-06 12:38] VITALS: BP 123/80; PULSE 75; TEMP 97.7; O2SAT 97
[2018-02-06] MEDS: Sod Chloride 0.9% Inj 1,000 ML IV.CONT SCH (13:41)
--- NOTE | 2018-02-06 14:13 | P.DS ---
<Ronn Vidales O - Last Filed: 02/07/18 09:38> Date of admission: 02/04/18 15:39 Primary care physician: Gerson Payne MD Brief History from admission: This is an 87-year-old male with a past medical history of BPH, hypertension, syncope, frequent falls and recurrent UTIs that began 1 year ago who presented to the ED after 2 day history of intermittent weakness. Patient has had 4 recurrences of weakness this year, and they are always associated with a concurrent UTI as well as chills. The day prior to admission, patient went to the ED at [facility], had negative workup, was hydrated and released home. This morning the patient woke up feeling fine but at 8:30 AM he felt cold , and began to have uncontrollable shakes and put a coat on. Despite wearing a coat patient was still shaking and this continued for another 30 minutes. Patient reports that his feeling of coldness and weakness is exactly the way he normally feels during previous episodes of urosepsis. Shortly after the patient went to the bathroom and fell down due to his weakness, attempted to help him get up but could not and sought assistance from their neighbors. There was no loss of consciousness or injuries to include the head, or incontinence. called health home care nurse who advised the patient to go to the emergency department. Per patient and his patient, he has had several falls within the last 1 year, some of which have caused physical injury. Patient normally ambulates with walker. Patient denies tripping on anything, any prodromal symptoms, or confusion following fall. Patient's weakness has no alleviating or exacerbating factors and describes his weakness as having no energy to get up. He also denies any dysuria, feelings of incomplete voiding, does report frequent urination. He also reported that his [facility] nurse checked a temperature on him at home and it was 102.7. On admission the patient was afebrile. Patient was admitted for observation. DS: Diagnosis - Discharge Diagnosis (1) Weakness Status: Acute (2) Hypertension Status: Acute (3) BPH (benign prostatic hyperplasia) Status: Acute (4) Obstructive sleep apnea Status: Acute DS: Summary Hospital Course: Plan: In the ED patient was found to have normal white count, no metabolic disturbances, normal calcium, normal magnesium, and a urinalysis positive only for a small amount of occult blood. Patient also had an x-ray that showed no acute cardiopulmonary changes. Blood cultures were ordered that ultimately showed no growth. On admission h/H was 13.6/40.3. Ammonia levels were also within normal range. In spite of patient feeling weak at the time of admission he had a grossly normal neurological exam. In light of his symptoms patient was admitted for observation for weakness. This morning the patient was able to get out of bed and stand unassisted and has been able to ambulate to the restroom with no issues. Over the patient's hospital course he did not have any subsequent episodes of chills or weakness. Throughout the patient's hospital course he continued to have normal labs. Patient was seen by physical therapy and upon their recommendations the patient was discharged with home health. No new medications were added to the patient's medication regimen. Patient to follow-up outpatient with his PCP. Also, follow-up with urology for cystoscopy this week. - Time Spent with Patient Total time spent providing and/or coordinating discharge services: - Quality: VTE Deep Vein Thrombosis/Pulmonary Embolism Present on Admission: No Exam Vital signs: Vital Signs 02/05/18 16:00 02/05/18 19:25 02/05/18 20:00 Temperature 97.5 F L 97.6 F Pulse Rate 60 75 70 Respiratory Rate 18 20 Blood Pressure 154/81 H 150/88 H Pulse Oximetry 95 96 96 02/06/18 03:14 02/06/18 07:58 02/06/18 08:00 Temperature 98.4 F 97.8 F Pulse Rate 63 63 Respiratory Rate 20 18 Blood Pressure 159/88 H 171/88 H Pulse Oximetry 96 96 93 L 02/06/18 08:19 02/06/18 08:23 02/06/18 12:34 Temperature 97.7 F Pulse Rate 75 Respiratory Rate 18 Blood Pressure 165/83 H 151/89 H 123/80 Pulse Oximetry 97 Intake & Output 02/05/18 02/06/18 02/06/18 18:59 06:59 18:59 Intake Total 3000 / 3000 1000 / 1000 Output Total 550 / 550 Balance 3000 / 3000 -550 / -550 1000 / 1000 Intake: IV 3000 / 3000 1000 / 1000 NS Inj 1,000 ML @ 50 mls/hr IV. 1999 / 1999 1000 / 1000 CONT .Q20H LITA Rx#:[id number] Output: Urine 550 / 550 Other: Date of Last Bowel Movement 02/05/18 02/06/18 - Constitutional no acute distress, average body habitus, cooperative - Routine HEENT Exam Head: Present: normocephalic, atraumatic - Routine Respiratory Exam Present: CTA bilaterally. Absent: prolonged expiratory phase, rales, respiratory distress, rhonchi, stridor, wheezes, crackles - Routine Cardiovascular Exam Present: RRR, S1, S2. Absent: murmur, gallop, rubs - Routine Abdominal Exam Present: soft, normoactive bowel sounds. Absent: tenderness, distended, rebound , guarding - Routine Extremities Exam Present: pulses intact. Absent: cyanosis, clubbing, edema - Routine Skin Exam Present: intact. Absent: cyanosis, erythema - Routine Neurological Exam Present: alert, oriented X3, moving all extremities, vision grossly intact, normal speech. Absent: sensory deficit, motor deficit, altered mental status, facial asymmetry, tremors Results Procedures completed during hospitalization: None Labs on day of discharge: Labs from last 24 hours 02/06/18 11:53 WBC 4.2 RBC 4.35 L Hgb 14.6 Hct 43.3 MCV 99.4 MCH 33.5 MCHC 33.7 RDW 14.1 Plt Count 127 L D MPV 7.5 Hematology Comments Preliminary micro results at discharge 02/04/18 13:25 Aerobic Blood Culture - Preliminary Blood - Peripheral No growth in 2 days Anaerobic Blood Culture - Preliminary No growth in 2 days 02/04/18 13:40 Aerobic Blood Culture - Preliminary Blood - Peripheral No growth in 2 days Anaerobic Blood Culture - Preliminary No growth in 2 days 02/04/18 13:45 Urine Culture - Preliminary Catheterized Urine No growth in 24 hours - Impressions ITS Impressions Chest X-Ray 02/04/18 13:14 CONCLUSION: No acute cardiopulmonary disease. <Stefany Dickerson - Last Filed: 02/10/18 14:11> Date of admission: 02/04/18 15:39 Primary care physician: Gerson Payne MD DS: Diagnosis - Discharge Diagnosis (1) Weakness Status: Acute (2) Hypertension Status: Acute (3) BPH (benign prostatic hyperplasia) Status: Acute (4) Obstructive sleep apnea Status: Acute DS: Summary - Time Spent with Patient Total time spent providing and/or coordinating discharge services: Results - Impressions ITS Impressions Chest X-Ray 02/04/18 13:14 CONCLUSION: No acute cardiopulmonary disease. Discharge Plan - Discharge Order Discharge Orders: Discharge Order (Routine); Ordered 02/06/18 Ordered By: Stefany Dickerson - Discharge Details Anticipated Discharge Date: 02/06/18 Discharge Comment: he is cleared to go home with home health which is what he wants to do - Physicians Team Primary Care Provider: Gerson Payne Attending Provider: Stefany Dickerson
== END 2018-02-06 16:05 | disposition home health service (06) ==
LOC: NEPC 12:42 → NEDA 12:42 → NEPHCDU 12:42
PROVIDERS: ADMIT Family Medicine; ATTEND Family Medicine

== ENCOUNTER 2018-03-09 12:03 | Observation (INO) ==
[2018-03-09] MEDS ORDERED: Sod Chloride 0.9% Inj 1,000 ML IV.SIG SCH (12:45)
[2018-03-09] MEDS ORDERED: Diphtheria/Tetanus/Pertussis Vaccine Inj 0.5 ML Syringe IM ONE (12:58)
[2018-03-09 13:12] LABS: Baso # (Auto) 0.1 th/mm3 (0.0-0.2); Baso % (Auto) 0.5 % (0.0-2.0); Eos % (Auto) 0.2 % (0.0-4.0); Hematocrit 42.5 % (39.0-51.0); Hemoglobin 14.5 gm/dL (13.0-17.0); Lymph # (Auto) 0.6 th/mm3 (1.0-4.8); Lymph % (Auto) 5.7 % (9.0-44.0); Mean Corpuscular Hemoglobin 34.2 pg (27.0-34.0); Mean Corpuscular Volume 100.5 fL (80.0-100.0); Mean Platelet Volume 7.3 fL (7.0-11.0); Mono # (Auto) 0.9 th/mm3 (0.0-0.9); Mono % (Auto) 8.3 % (0.0-8.0); Neut # (Auto) 9.3 th/mm3 (1.8-7.7); Neut % (Auto) 85.3 % (16.0-70.0); Platelet Count 180 th/mm3 (150-450); Red Blood Count 4.23 mil/mm3 (4.50-5.90); Red Cell Distribution Width 13.6 % (11.6-17.2); White Blood Count 10.9 th/mm3 (4.0-11.0)
--- NOTE | 2018-03-09 13:14 | XR ---
EXAM DATE: 03/09/2018 1:10 PM EDT AGE/SEX: 87 years / Male INDICATIONS: Fever, syncopal episode, recent cat scratch. CLINICAL DATA: This is the patient's initial encounter. Patient reports that signs and symptoms have been present for 2 days and indicates a pain score of 0/10. MEDICAL/SURGICAL HISTORY: Hypertension. Gastroesophageal reflux disease. Sleep apnea. Pacema ker. COMPARISON: [facility], CHEST 1V SINGLE AP, 02/04/2018. . FINDINGS: Pacemaker left chest with mild cardiomegaly. No overt failure. No pneumothorax. No infiltrate. The po rtion of the bony skeleton visualized is unremarkable. CONCLUSION: Pacemaker with mild compensated cardiomegaly Electronically signed by: Adi Soler MD 03/09/2018 1:13 PM EDT
[2018-03-09 13:23] LABS: Chloride 100 meq/L (98-107); Potassium 3.7 meq/L (3.5-5.1); Sodium 136 meq/L (136-145)
--- NOTE | 2018-03-09 13:23 | XR ---
EXAM DATE: 03/09/2018 1:18 PM EDT AGE/SEX: 87 years / Male INDICATIONS: Right distal humerus pain, bruising, and warm to the touch after cat scratch. CLINICAL DATA: This is the patient's initial encounter. Patient reports that signs and symptoms have been present for 2 days and indicates a pain score of 5/10. MEDICAL/SURGICAL HISTORY: Hypertension. Gastroesophageal reflux disease. Sleep apena. Pacemak er. COMPARISON: [facility], FOREARM RIGHT 2V, 03/09/2018. . FINDINGS: Bony structures are intact and in normal alignment. Osseous density is normal. Soft tissues are unre markable. No radiopaque foreign bodies seen. CONCLUSION: Negative for fracture or radiopaque foreign body Electronically signed by: Adi Soler MD 03/09/2018 1:22 PM EDT
--- NOTE | 2018-03-09 13:24 | XR ---
EXAM DATE: 03/09/2018 1:18 PM EDT AGE/SEX: 87 years / Male INDICATIONS: Proximal forearm pain, brusing, and warm to the touch after a cat scratch. CLINICAL DATA: This is the patient's initial encounter. Patient reports that signs and symptoms have been present for 2 days and indicates a pain score of 6/10. MEDICAL/SURGICAL HISTORY: Hypertension. Gastroesophageal reflux disease. Sleep apnea. Pacema ker. COMPARISON: . FINDINGS: Bony structures are intact and in normal alignment. Osseous density is normal. Soft tissues are unre markable. No radiopaque foreign bodies seen. CONCLUSION: Negative for fracture or radiopaque foreign body Electronically signed by: Adi Soler MD 03/09/2018 1:23 PM EDT
[2018-03-09 13:26] LABS: Calcium 8.5 mg/dL (8.5-10.1)
[2018-03-09 13:27] LABS: Albumin 3.4 g/dL (3.4-5.0); Anion Gap 9 meq/L (5-15); Blood Urea Nitrogen 19 mg/dL (7-18); Carbon Dioxide 26.8 meq/L (21.0-32.0); Glucose,Random 110 mg/dL (74-106)
--- NOTE | 2018-03-09 13:27 | ED ---
HPI General Chief complaint: Animal Bite Stated complaint: POSS CAT SCRATCH Source: patient and family Mode of arrival: ambulatory Limitations: no limitations History of Present Illness HPI narrative: Patient is an 87-year-old male, past medical history significant for hypertension, KLAUDIA on CPAP at night who presents with complaint of erythema to his R arm. He states that several days ago he was playing with a kitten and was scratched. He has had marked erythema, swelling and pain to the area since then. He had a fever of 100.7 at home and reports generalized weakness. He reports that he only other time he felt this weak was when he had sepsis from a UTI. When he woke up this morning he felt the generalized weakness but also like he kept leaning to the L when walking. The "leaning" feeling resolved after approx 45 min but the generalized weakness remains. Onset (ago): day(s) Location: upper extremity Severity: moderate Quality: aching Pain Consistency: constant Relieving factors: none Treatments prior to arrival: none Related Data Home Medications Medication Instructions Recorded Confirmed allopurinol 300 mg PO DAILY 02/03/18 02/04/18 amlodipine-olmesartan 1 tab PO DAILY 02/03/18 02/04/18 ascorbic acid (vitamin C) 100 mg PO DAILY 02/03/18 02/04/18 aspirin [Aspir-81] 81 mg PO DAILY 02/03/18 02/04/18 cyanocobalamin (vitamin B-12) 100 mcg PO DAILY 02/03/18 02/04/18 esomeprazole magnesium 20 mg PO DAILY 02/03/18 02/04/18 tamsulosin 0.8 mg PO DAILY 02/03/18 02/04/18 Allergies Allergy/AdvReac Type Severity Reaction Status Date / Time monosodium glutamate AdvReac Severe Nausea/Vomi Verified 03/09/18 12:06 ting Review of Systems ROS: all other systems reviewed are negative Constitutional Reports fever(s) and Reports weakness Eyes Denies blurry vision ENT Denies nasal congestion Cardiovascular Denies chest pain Respiratory Denies cough Gastrointestinal Denies abdominal pain Musculoskeletal Denies back pain Neurologic Reports weakness [facility] Medical History Medical History BPH (benign prostatic hyperplasia) (Acute) Cheek injury (Acute) Degenerative disc disease (Acute) Deviated septum (Acute) GERD (gastroesophageal reflux disease) (Acute) Gout (Acute) Head injury (Acute) History of frequent urinary tract infections (Acute) Hypertension (Acute) Obstructive sleep apnea on CPAP (Acute) Pacemaker (Acute) Syncope (Acute) Surgical History Surgical History Hx of joint replacement (Acute) Social History Social History Substance History: No History of Abuse Second Hand Smoke Exposure: No Smoking Status: Former smoker Tobacco Type: Pipe How Often Do You Have a Drink Containing Alcohol: 2 to 3 times a week Recent Travel in [facility] within the Last 8 Weeks: No Recent Out of Country Travel within the Last 8 Weeks: No Immunization History Tetanus Immunization: <5 Years Hx Influenza Vaccine This Season: Yes Exam Narrative Exam Narrative: GENERAL: Well-appearing, elderly male in no acute distress SKIN: Focused skin assessment warm/dry. Marked erythema circumferentially to the right arm distal to the elbow with streaking proximally. No crepitus. HEAD: Atraumatic. Normocephalic. EYES: Pupils equal and round. No scleral icterus. No injection or drainage. ENT: No nasal bleeding or discharge. Mucous membranes pink and moist. NECK: Trachea midline. No JVD. CARDIOVASCULAR: Regular rate and rhythm. No murmur appreciated. RESPIRATORY: No accessory muscle use. Clear to auscultation. Breath sounds equal bilaterally. GASTROINTESTINAL: Abdomen soft, non-tender, nondistended. Hepatic and splenic margins not palpable. MUSCULOSKELETAL: No obvious deformities. No clubbing. No cyanosis. No edema. NEUROLOGICAL: Awake and alert. No obvious cranial nerve deficits. Motor within normal limits. Normal sensation. No ataxia. Normal speech. PSYCHIATRIC: Appropriate mood and affect; insight and judgment normal. Course Initial Documented Vital Signs Temperature 98.5 F 03/09/18 12:06 Pulse Rate 95 H 03/09/18 12:06 Respiratory Rate 20 03/09/18 12:06 Blood Pressure 130/74 03/09/18 12:06 Pulse Oximetry 95 03/09/18 12:06 Last Documented Vital Signs Temperature 98.5 F 03/09/18 12:06 Pulse Rate 82 03/09/18 15:09 Respiratory Rate 20 03/09/18 15:09 Blood Pressure 131/70 03/09/18 15:09 Pulse Oximetry 96 03/09/18 15:09 Medical Decision Making MDM Narrative Medical decision making narrative: Patient is an 87-year-old male who presents with complaint of right arm pain and swelling with fever at home. On arrival here heart rate was in the low 100s with blood pressure in the 90s. Sepsis workup was initiated and he was given Rocephin empirically. He was given fluid boluses to which his heart rate and blood pressure responded well, and maps remained above 65. Labs were unremarkable. Patient will be admitted for sepsis secondary to cellulitis. Medical Screen Exam Complete: Yes Emergency Medical Condition: Yes Differential Diagnosis Differential Diagnosis: Differential diagnosis includes but is not limited to sepsis secondary to cellulitis, necrotizing fasciitis, cat scratch fever. Medical Records Medical records reviewed: Yes I reviewed the patient's medical records. Lab Data Lab results reviewed: Yes I reviewed the patient's lab results. Lab results narrative: Labs unremarkable. Result diagrams: 03/09/18 13:00 03/09/18 13:00 Lab Results 03/09/18 03/09/18 03/09/18 Range/Units 13:00 13:00 13:00 CBC w Diff Auto diff final WBC 10.9 (4.0-11.0) th/mm3 RBC 4.23 L (4.50-5.90) mil/mm3 Hgb 14.5 (13.0-17.0) gm/dL Hct 42.5 (39.0-51.0) % MCV 100.5 H (80.0-100.0) fL MCH 34.2 H (27.0-34.0) pg MCHC 34.0 (32.0-36.0) % RDW 13.6 (11.6-17.2) % Plt Count 180 (150-450) th/mm3 MPV 7.3 (7.0-11.0) fL Neut % (Auto) 85.3 H (16.0-70.0) % Lymph % (Auto) 5.7 L (9.0-44.0) % [place] % (Auto) 8.3 H (0.0-8.0) % Eos % (Auto) 0.2 (0.0-4.0) % Baso % (Auto) 0.5 (0.0-2.0) % Neut # (Auto) 9.3 H (1.8-7.7) th/mm3 Lymph # (Auto) 0.6 L (1.0-4.8) th/mm3 [place] # (Auto) 0.9 (0.0-0.9) th/mm3 Eos # (Auto) 0.0 (0.0-0.4) th/mm3 Baso # (Auto) 0.1 (0.0-0.2) th/mm3 WBC Differential . Differential Comment . Sodium 136 (136-145) meq/L Potassium 3.7 (3.5-5.1) meq/L Chloride 100 (98-107) meq/L Carbon Dioxide 26.8 (21.0-32.0) meq/L Anion Gap 9 (5-15) meq/L BUN 19 H (7-18) mg/dL Creatinine 1.10 (0.60-1.30) mg/dL Estimated GFR 64 L (>89) mL/min Random Glucose 110 H (74-106) mg/dL Lactic Acid 1.4 (0.4-2.0) mmol/L Calcium 8.5 (8.5-10.1) mg/dL Total Bilirubin 0.9 (0.2-1.0) mg/dL AST 19 (15-37) U/L ALT 29 (12-78) U/L Alkaline Phosphatase 67 (45-117) U/L Troponin I Less than 0.02 L (0.02-0.05) ng/mL Total Protein 7.4 (6.4-8.2) g/dL Albumin 3.4 (3.4-5.0) g/dL Imaging Data Radiologist's impression: Forearm X-Ray 03/09/18 12:32 CONCLUSION: Negative for fracture or radiopaque foreign body Humerus X-Ray 03/09/18 12:32 CONCLUSION: Negative for fracture or radiopaque foreign body Chest X-Ray 03/09/18 12:33 CONCLUSION: Pacemaker with mild compensated cardiomegaly ECG Data EKG Prior to Arrival: No Attestation: I personally reviewed and interpreted this ECG as follows: ( Ventricularly paced rhythm at a rate of [address] or T-wave changes concerning for sgarbossa's criteria.) Discharge Plan Discharge Disposition Patient Disposition: 30 Still Patient Discharge Condition Condition: Fair Discharge Details Diagnosis: Cellulitis, Sepsis Physicians Team ED Provider: Ronel Scott Primary Care Provider: Gerson Payne Rxs /Orders / Referrals /Forms Prescriptions: No Action cyanocobalamin (vitamin B-12) 100 mcg Tablet 100 mcg PO DAILY RF: 0 aspirin [Aspir-81] 81 mg Tablet,Delayed Release (Dr/Ec) 81 mg PO DAILY RF: 0 tamsulosin 0.4 mg Capsule,Extended Release 24hr 0.8 mg PO DAILY RF: 0 allopurinol 300 mg Tablet 300 mg PO DAILY RF: 0 ascorbic acid (vitamin C) 100 mg Tablet,Chewable 100 mg PO DAILY RF: 0 amlodipine-olmesartan 5-40 mg Tablet 1 tab PO DAILY RF: 0 esomeprazole magnesium 20 mg Tablet,Delayed Release (Dr/Ec) 20 mg PO DAILY RF: 0 Discharge Interventions Interventions: Vital Signs Last Done: 03/09/18 15:09 Status ED Status: In Room
[2018-03-09 13:30] LABS: Alanine Aminotransferase 29 U/L (12-78); Aspartate Aminotransferase 19 U/L (15-37); Glomerular Filtration Rate 64 mL/min (>89)
[2018-03-09 13:32] LABS: Total Protein 7.4 g/dL (6.4-8.2)
[2018-03-09 13:33] LABS: Alkaline Phosphatase 67 U/L (45-117)
[2018-03-09] MEDS ORDERED: Acetaminophen 325 MG Tablet PO PRN (15:26)
[2018-03-09] MEDS ORDERED: Bisacodyl 10 MG Supp RECTAL PRN (15:26)
[2018-03-09] MEDS ORDERED: Sodium Chlor 0.9% Inj 500 ML IV.SIG ONE (16:00)
[2018-03-09] MEDS: Enoxaparin Inj 40 MG/0.4 ML Syringe SQ SCH (16:38)
--- NOTE | 2018-03-09 16:45 | P.HP ---
History of Present Illness Primary Care Physician: Gerson Payne MD Chief Complaint: Cellulitis History of Present Illness: This is a pleasant 87-year-old male patient with a known medical history of hypertension, obstructive sleep apnea, hypertension and BPH with multiple UTIs who presented to the ED with complaints of right arm erythema. Patient states that a few days ago he was playing with his cat and he was scratched and subsequently developed a right forearm redness with swelling and increasing pain. Since that time he has developed a subjective fever of 100.7 at home and has become generally weak. He reports to the emergency department with generalized weakness and pain in the right upper extremity as well as some shortness of breath with activity. Patient has been following with Dr. Eugene, urology, has recently finished a dose of ciprofloxacin for UTI and hematuria. Patient states that he has a follow-up appointment last week and his urine was clean. He denies any recent dysuria or hematuria. Patient does live at home with his , is able to perform all ADLs per self. He does admit to following with Dr. Anne, cardiology, states that he has a cardiac cath scheduled next Wednesday for possible stent placement due to an abnormality found on his nuclear stress test a couple months ago. This catheterization has been long coming, although has been canceled several times secondary to his recent hospitalizations and illness. It should be noted patient was admitted on February 04, 2018 for generalized weakness and possible sepsis secondary to UTI. Upon assessment today, right upper extremity erythematous and painful to touch. He does have obstructive sleep apnea and uses CPAP at home, is not on home O2. - Diagnosis (1) Cellulitis Review of Systems All other systems reviewed negative except as stated in HPI PMFSH - History History Provided By: Patient, Family Member - Medical History Medical History: Medical History (Last Reviewed 03/09/18 @ 13:25 by Ronel Scott MD) BPH (benign prostatic hyperplasia) Cheek injury Degenerative disc disease Deviated septum GERD (gastroesophageal reflux disease) Gout Head injury History of frequent urinary tract infections Hypertension Obstructive sleep apnea on CPAP Pacemaker Syncope - Surgical History Surgical History: Surgical History (Last Updated 03/09/18 @ 17:20 by Natalya Lopez) S/P TURP Hx of joint replacement - Family History Family History: Family History (Last Updated 03/09/18 @ 17:20 by Natalya Jessica) Other No pertinent family history - Tobacco History Second Hand Smoke Exposure: No Tobacco Use In Past 30 Days: No Smoking Status: Former smoker Tobacco Type: Pipe - Alcohol History How Often Do You Have a Drink Containing Alcohol: 2 to 3 times a week - Substance Use History Substance History: No History of Abuse - Travel History Recent Travel in the [place] Within the Last 8 Weeks: No Recent Travel Out of the Country Within the Last 8 Weeks: No - Immunization History Tetanus Immunization: <5 Years Hx Influenza Vaccine This Season: Yes Medications and Allergies Active Medications: Active Medications Acetaminophen (Tylenol) 650 mg PO Q4H PRN PRN Reason: Temp > 100.4 Al Hydroxide/Mg Hydroxide (Milk Of Magnesia Liq) 30 ml PO Q12H PRN PRN Reason: Mild Constipation Bisacodyl (Dulcolax Supp) 10 mg RECTAL DAILY PRN PRN Reason: SEVERE CONSITIPATION Enoxaparin Sodium (Lovenox Inj) 40 mg SQ Q24H LITA Sodium Chloride (Ns Inj) 1,000 mls @ 0 mls/hr IV.SIG .Q0M LITA Last Infusion: 03/09/18 14:27 Dose: Infused Sodium Chloride (Ns Inj) 500 mls @ 500 mls/hr IV.SIG .Q1H ONE Stop: 03/09/18 16:59 Last Infusion: 03/09/18 16:27 Dose: Infused Potassium Chloride/Sodium Chloride (Ns + Kcl 20 Meq Inj) 1,000 mls @ 100 mls/ hr IV.CONT .Q10H LITA Cefazolin Sodium 1,000 mg/ (Sodium Chloride) 100 mls @ 200 mls/hr IV.SIG Q8H LITA Lactulose (Lactulose Liq) 30 ml PO DAILY PRN PRN Reason: SEVERE CONSITIPATION Ondansetron HCl (Zofran Inj) 4 mg IV.PUSH Q6H PRN PRN Reason: NAUSEA OR VOMITING Senna/Docusate Sodium (Jackeline-Colace) 1 tab PO BID LITA Sennosides (Senokot) 17.2 mg PO Q12H PRN PRN Reason: Moderate Constipation Allergies Allergy/AdvReac Type Severity Reaction Status Date / Time monosodium glutamate AdvReac Severe Nausea/Vomi Verified 03/09/18 12:06 ting Home Medications Medication Instructions Recorded Confirmed Type allopurinol 300 mg PO DAILY 02/03/18 02/04/18 History amlodipine-olmesartan 1 tab PO DAILY 02/03/18 02/04/18 History ascorbic acid (vitamin C) 100 mg PO DAILY 02/03/18 02/04/18 History aspirin [Aspir-81] 81 mg PO DAILY 02/03/18 02/04/18 History cyanocobalamin (vitamin B-12) 100 mcg PO DAILY 02/03/18 03/09/18 History esomeprazole magnesium 20 mg PO DAILY 02/03/18 02/04/18 History tamsulosin 0.8 mg PO DAILY 02/03/18 02/04/18 History Exam Vital signs: Vital Signs 03/09/18 12:06 03/09/18 12:34 03/09/18 13:07 Temperature 98.5 F Pulse Rate 95 H 98 H 96 H Respiratory Rate 18 Blood Pressure 130/74 94/72 L Pulse Oximetry 95 96 96 03/09/18 14:27 03/09/18 15:09 03/09/18 16:30 Temperature 98.5 F Pulse Rate 86 82 81 Respiratory Rate 18 Blood Pressure 127/71 131/70 122/67 Pulse Oximetry 96 96 95 Intake & Output 03/08/18 03/09/18 03/09/18 18:59 06:59 18:59 Intake Total 1600 / 1600 Balance 1600 / 1600 Weight 91 kg Intake: IV 1600 / 1600 NS Inj 1,000 ML @ Wide Open IV. 1000 / 1000 SIG .Q0M LITA Rx#:[id number] NS Inj 500 ML @ 500 mls/hr IV. 500 / 500 SIG .Q1H ONE Rx#:[id number] Rocephin Inj 2,000 MG In NS Inj 100 / 100 100 ML @ 200 mls/hr IV.SIG ONCE ONE Rx#:[id number] Narrative: GENERAL: Well-developed, well-nourished patient in NAD. SKIN: Warm and dry. Right forearm erythema, painful to palpation. No drainage. Trace swelling. HEAD: Normocephalic. Atraumatic. EYES: Pupils equal and round. No scleral icterus. No injection or drainage. ENT: No nasal bleeding or discharge. Mucous membranes pink and moist. NECK: Supple. Trachea midline. CARDIOVASCULAR: Regular rate and rhythm. S1, S2 noted. No murmur appreciated. RESPIRATORY: No accessory muscle use. Clear to auscultation. Breath sounds equal bilaterally. GASTROINTESTINAL: Abdomen soft, non-tender, nondistended. Normoactive bowel sounds x4. MUSCULOSKELETAL: No obvious deformities. Extremities without clubbing, cyanosis , or edema. NEUROLOGICAL: Awake and alert. No obvious cranial nerve deficits. Motor grossly within normal limits. 5/5 muscle strength in bilateral upper and lower extremities. Normal speech. PSYCHIATRIC: Appropriate mood and affect; insight and judgment normal. Results - Labs CBC & Chem 7: 03/09/18 13:00 03/09/18 13:00 Labs: Laboratory Results - last 24 hr 03/09/18 03/09/18 03/09/18 13:00 13:00 13:00 CBC w Diff Auto diff final WBC 10.9 RBC 4.23 L Hgb 14.5 Hct 42.5 MCV 100.5 H MCH 34.2 H MCHC 34.0 RDW 13.6 Plt Count 180 MPV 7.3 Neut % (Auto) 85.3 H Lymph % (Auto) 5.7 L [place] % (Auto) 8.3 H Eos % (Auto) 0.2 Baso % (Auto) 0.5 Neut # (Auto) 9.3 H Lymph # (Auto) 0.6 L [place] # (Auto) 0.9 Eos # (Auto) 0.0 Baso # (Auto) 0.1 WBC Differential . Differential Comment . Sodium 136 Potassium 3.7 Chloride 100 Carbon Dioxide 26.8 Anion Gap 9 BUN 19 H Creatinine 1.10 Estimated GFR 64 L Random Glucose 110 H Lactic Acid 1.4 Calcium 8.5 Total Bilirubin 0.9 AST 19 ALT 29 Alkaline Phosphatase 67 Troponin I Less than 0.02 L Total Protein 7.4 Albumin 3.4 - Imaging Impressions Forearm X-Ray 03/09/18 12:32 CONCLUSION: Negative for fracture or radiopaque foreign body Humerus X-Ray 03/09/18 12:32 CONCLUSION: Negative for fracture or radiopaque foreign body Chest X-Ray 03/09/18 12:33 CONCLUSION: Pacemaker with mild compensated cardiomegaly Caprini VTE Risk Assessment Caprini VTE Risk Assessment: Moderate/High Risk (score >= 2) Caprini Risk Assessment Model: Point Value = 1 Point Value = 2 Point Value = 3 Point Value = 5 Age 41-60 Minor surgery BMI > 25 kg/m2 Swollen legs Varicose veins or History of unexplained or recurrent spontaneous Oral contraceptives or hormone replacement Sepsis (< 1 month) Serious lung disease, including pneumonia (< 1 month) Abnormal pulmonary function Acute myocardial infarction Congestive heart failure (< 1 month) History of inflammatory bowel disease Medical patient at bed rest Age 61-74 Arthroscopic surgery Major open surgery (> 45 min) Laparoscopic surgery (> 45 min) Malignancy Confined to bed (> 72 hours) Immobilizing plaster cast Central venous access Age >= 75 History of VTE Family history of VTE Factor V Leiden Prothrombin [id number] Lupus anticoagulant Anticardiolipin antibodies Elevated serum homocysteine Heparin-induced thrombocytopenia Other congenital or acquired thrombophilia Stroke (< 1 month) Elective arthroplasty Hip, pelvis, or leg fracture Acute spinal cord injury (< 1 month) Prophylaxis Regimen: Total Risk Factor Score Risk Level Prophylaxis Regimen 0-1 Low Early ambulation 2 Moderate Order ONE of the following: *Sequential Compression Device (SCD) *Heparin 5000 units SQ BID 3-4 Higher Order ONE of the following medications: *Heparin 5000 units SQ TID *Enoxaparin/Lovenox 40 mg SQ daily (WT < 150 kg, CrCl > 30 mL/min) *Enoxaparin/Lovenox 30 mg SQ daily (WT < 150 kg, CrCl > 10-29 mL/min) *Enoxaparin/Lovenox 30 mg SQ BID (WT < 150 kg, CrCl > 30 mL/min) AND/OR *Sequential Compression Device (SCD) 5 or more Highest Order ONE of the following medications: *Heparin 5000 units SQ TID (Preferred with Epidurals) *Enoxaparin/Lovenox 40 mg SQ daily (WT < 150 kg, CrCl > 30 mL/min) *Enoxaparin/Lovenox 30 mg SQ daily (WT < 150 kg, CrCl > 10-29 mL/min) *Enoxaparin/Lovenox 30 mg SQ BID (WT < 150 kg, CrCl > 30 mL/min) AND *Sequential Compression Device (SCD) Assessment and Plan - Assessment (1) Cellulitis Code(s): L03.90 - Cellulitis, unspecified Status: Acute - Plan This is an 87-year-old male patient with: Right arm cellulitis -Patient presented with erythema to his right arm for several days. Possibly secondary to cat scratch. -Did complain of subjective fever 100.7 at home although has been afebrile since presentation. He does have tachycardia. -Blood cultures drawn and pending. Continue to follow growth. Lactic acid 1.4. -Chest x-ray negative for any acute disease. Monitor for any signs of infection. -Patient started on Ancef. Patient given 1.5 L NS bolus in ED. Continue IV fluids. -Right humerus and forearm x-ray reviewed showing no fracture or foreign body. No abscess was mentioned. -Will obtain venous Doppler ultrasound of right upper extremity. Rule out DVT. Follow findings. -It was recommended that patient receive Dalvance dose in ED and be discharged, ED physician insisted sepsis workup with subjective fever at home and tachycardia, therefore patient has been admitted under observation. -At this time patient does not meet sepsis criteria. Will continue workup. -Supportive care. Recent history of multiple UTIs -Patient follows with urologist, Dr. Eugene, has recently finished Cipro dose a couple weeks ago. UA ordered and awaiting. -Patient does report fever of 100.7 at home. Denies any dysuria or hematuria. -Continue IV fluids. Monitor renal function. Avoid nephrotoxins. History of hypertension, chronic: Continue home medications. Monitor blood pressure trends. History of BPH: Will continue home tamsulosin. History of obstructive sleep apnea: Will continue Cpap. DVT prophylaxis: SCDs. Lovenox. (1) Cellulitis Qualifiers: Site of cellulitis: extremity Site of cellulitis of extremity: upper extremity Laterality: right Qualified Code(s): L03.113 - Cellulitis of right upper limb
[2018-03-09 18:35] LABS: Bilirubin,Urine Negative (Negative); Clarity,Urine Clear (Clear); Color,Urine Yellow (Yellw/Straw); Glucose,Urine (UA) Negative (Negative); Leukocyte Esterase,Urine Negative (Negative); Nitrite,Urine Negative (Negative); PH,Urine 6.5 (5.0-8.5); Urobilinogen,Urine 0.2 mg/dL (Less than 2)
[2018-03-09 18:36] LABS: Squamous Epithelial Cell,Urine 0-5 /hpf (0-5); WBC,Urine 0-5 /hpf (0-5)
[2018-03-09] MEDS: Senna/Docusate Sodium 8.6/50 MG Tablet PO SCH (20:15)
[2018-03-10] MEDS: Senna/Docusate Sodium 8.6/50 MG Tablet PO SCH ×2 (08:15→21:23)
--- NOTE | 2018-03-10 08:28 | US ---
EXAM DATE: 03/10/2018 8:10 AM EDT AGE/SEX: 87 years / Male INDICATIONS: Fever. Right arm redness and swelling after being scratched by a cat. CLINICAL DATA: This is the patient's initial encounter. Patient reports that signs and symptoms have been present for 3 days and indicates a pain score of 1/10. MEDICAL/SURGICAL HISTORY: . BPH. GERD. UTI. HTN. Syncope. . TURP. Pacemaker. COMPARISON: No prior exams available for comparison. FINDINGS: The vessels are compressible and augmentation response is documented. No filling defects a re seen. The flow is phasic with respiration. Other: None. CONCLUSION: 1. No evidence of DVT. Electronically signed by: Abram Le MD 03/10/2018 8:27 AM EDT
--- NOTE | 2018-03-10 09:56 | P.PN ---
Subjective Interval history: Follow-up right upper extremity cellulitis. Patient seen and examined, lying in bed sleeping. Awakens to voice. Denies any acute complaints overnight. UA negative. Physical Exam Vital signs: Vital Signs 03/09/18 12:06 03/09/18 12:34 03/09/18 13:07 Temperature 98.5 F Pulse Rate 95 H 98 H 96 H Respiratory Rate 20 18 Blood Pressure 130/74 94/72 L Pulse Oximetry 95 96 96 03/09/18 14:27 03/09/18 15:09 03/09/18 16:30 Temperature 98.5 F Pulse Rate 86 82 81 Respiratory Rate 20 20 18 Blood Pressure 127/71 131/70 122/67 Pulse Oximetry 96 96 95 03/09/18 20:00 03/09/18 20:10 03/09/18 22:00 Temperature 98.5 F Pulse Rate 70 Respiratory Rate 20 Blood Pressure 148/77 H Pulse Oximetry 94 L 94 L 93 L 03/10/18 00:00 03/10/18 07:47 Temperature 98.2 F 96.9 F L Pulse Rate 67 71 Respiratory Rate 20 20 Blood Pressure 126/66 161/80 H Pulse Oximetry 94 L 95 Intake & Output 03/09/18 03/10/18 03/10/18 18:59 06:59 18:59 Intake Total 2180 / 2180 1340 / 1340 Output Total 850 / 850 850 / 850 Balance 1330 / 1330 490 / 490 Weight 93 kg 93.3 kg Intake: IV 1700 / 1700 1100 / 1100 NS + KCl 20 mEq Inj 1,000 ML @ 1000 / 1000 100 mls/hr IV.CONT .Q10H LITA Rx #:[id number] NS Inj 1,000 ML @ Wide Open IV. 1000 / 1000 SIG .Q0M LITA Rx#:[id number] NS Inj 500 ML @ 500 mls/hr IV. 500 / 500 SIG .Q1H ONE Rx#:[id number] Ancef Inj 1,000 MG In NS Inj 100 / 100 100 / 100 100 ML @ 200 mls/hr IV.SIG Q8H LITA Rx#:[id number] Rocephin Inj 2,000 MG In NS Inj 100 / 100 100 ML @ 200 mls/hr IV.SIG ONCE ONE Rx#:[id number] Oral 480 / 480 240 / 240 Output: Urine 850 / 850 850 / 850 Other: # Voids 2 Date of Last Bowel Movement 03/09/18 03/09/18 # Bowel Movements 0 Weight On Admission 91 kg Results - Labs CBC & Chem 7: 03/09/18 13:00 03/09/18 13:00 Laboratory Results - last 24 hr 03/09/18 03/09/18 03/09/18 13:00 13:00 13:00 CBC w Diff Auto diff final WBC 10.9 RBC 4.23 L Hgb 14.5 Hct 42.5 MCV 100.5 H MCH 34.2 H MCHC 34.0 RDW 13.6 Plt Count 180 MPV 7.3 Neut % (Auto) 85.3 H Lymph % (Auto) 5.7 L Terry % (Auto) 8.3 H Eos % (Auto) 0.2 Baso % (Auto) 0.5 Neut # (Auto) 9.3 H Lymph # (Auto) 0.6 L Terry # (Auto) 0.9 Eos # (Auto) 0.0 Baso # (Auto) 0.1 WBC Differential . Differential Comment . Sodium 136 Potassium 3.7 Chloride 100 Carbon Dioxide 26.8 Anion Gap 9 BUN 19 H Creatinine 1.10 Estimated GFR 64 L POC Glucose Random Glucose 110 H Lactic Acid 1.4 Calcium 8.5 Total Bilirubin 0.9 AST 19 ALT 29 Alkaline Phosphatase 67 Troponin I Less than 0.02 L Total Protein 7.4 Albumin 3.4 Urine Color Urine Clarity Urine pH Ur Specific [place] Urine Protein Urine Glucose (UA) Urine Ketones Urine Occult Blood Urine Nitrate Urine Bilirubin Urine Urobilinogen Ur Leukocyte Esterase Urine RBC Urine WBC Ur Squamous Epith Cells Micro UA Comment Ur Microscopic Review Urine Culture Comments 03/09/18 03/09/18 17:12 18:18 CBC w Diff WBC RBC Hgb Hct MCV MCH MCHC RDW Plt Count MPV Neut % (Auto) Lymph % (Auto) Terry % (Auto) Eos % (Auto) Baso % (Auto) Neut # (Auto) Lymph # (Auto) Terry # (Auto) Eos # (Auto) Baso # (Auto) WBC Differential Differential Comment Sodium Potassium Chloride Carbon Dioxide Anion Gap BUN Creatinine Estimated GFR POC Glucose 102 Random Glucose Lactic Acid Calcium Total Bilirubin AST ALT Alkaline Phosphatase Troponin I Total Protein Albumin Urine Color Yellow Urine Clarity Clear Urine pH 6.5 Ur Specific [place] 1.010 Urine Protein Negative Urine Glucose (UA) Negative Urine Ketones Negative Urine Occult Blood Trace Urine Nitrate Negative Urine Bilirubin Negative Urine Urobilinogen 0.2 Ur Leukocyte Esterase Negative Urine RBC 4-15 H Urine WBC 0-5 Ur Squamous Epith Cells 0-5 Micro UA Comment Culture not ind Ur Microscopic Review Microscopic reviewed Urine Culture Comments Culture not ind - Imaging Impressions Forearm X-Ray 03/09/18 12:32 CONCLUSION: Negative for fracture or radiopaque foreign body Humerus X-Ray 03/09/18 12:32 CONCLUSION: Negative for fracture or radiopaque foreign body Chest X-Ray 03/09/18 12:33 CONCLUSION: Pacemaker with mild compensated cardiomegaly Venous Doppler Study 03/10/18 00:00 CONCLUSION: 1. No evidence of DVT. Assessment and Plan - Assessment (1) Cellulitis Code(s): L03.90 - Cellulitis, unspecified Status: Acute - Plan This is an 87-year-old male patient with: Right arm cellulitis -Patient presented with erythema to his right arm for several days. Possibly secondary to cat scratch. -Did complain of subjective fever 100.7 at home although has been afebrile since presentation. Was tachycardic on presentation. -It was recommended that patient receive Dalvance dose in ED and be discharged, ED physician insisted sepsis workup with subjective fever at home and tachycardia, therefore patient has been admitted under observation. -Blood cultures drawn and pending. Continue to follow growth. Lactic acid 1.4. -Chest x-ray negative for any acute disease. Monitor for any signs of infection. -Patient started on Ancef. Patient given 1.5 L NS bolus in ED. Continue IV fluids. -Right humerus and forearm x-ray reviewed showing no fracture or foreign body. No abscess was mentioned. -Right upper extremity venous Doppler US ordered and showing no DVT. -At this time patient does not meet sepsis criteria. Afebrile overnight. No signs of infection. -Upon assessment today patient's arm does not look improved but not worse, still with continued erythema and swelling. Pain is subjectively slightly improved. Patient would benefit from one more day of IV antibiotics. Continue to await cultures. Recent history of multiple UTIs -Patient follows with urologist, Dr. Eugene, has recently finished Cipro dose a couple weeks ago. UA clean. -Patient does report fever of 100.7 at home. Denies any dysuria or hematuria. No fever while hospitalized here. Tachycardia improved. -Patient tolerating p.o. intake well. Encourage hydration. Monitor renal function. Avoid nephrotoxins. History of hypertension, chronic: Continue home medications. Monitor blood pressure trends. History of BPH: Will continue home tamsulosin. History of obstructive sleep apnea: Will continue Cpap. DVT prophylaxis: SCDs. Lovenox. Discharge Planning: Awaiting clinical improvement. Blood cultures pending. Patient would benefit from one more day of IV antibiotics. (1) Cellulitis Qualifiers: Site of cellulitis: extremity Site of cellulitis of extremity: upper extremity Laterality: right Qualified Code(s): L03.113 - Cellulitis of right upper limb
--- NOTE | 2018-03-10 09:57 | P.DCO ---
- Diagnosis (1) Cellulitis - Physical Therapy Order: Evaluate and treat, Improve ambulation, Strength and gait training - Home Health Nursing Order: Medical education, Signs/symptoms of disease process, Medication education-adverse effect, Nursing assessment with vital signs - Certification I have seen patient Jonatan Cam on 03/10/18. My clinical findings support the need for the requested home health care services because: Deconditioned with increased weakness I certify that my clinical findings support that this patient is homebound because: Unsteady gait/balance Attestation/Additional Detail: Continue home health care prior to presentation. (1) Cellulitis Qualifiers: Site of cellulitis: extremity Site of cellulitis of extremity: upper extremity Laterality: right Qualified Code(s): L03.113 - Cellulitis of right upper limb
--- NOTE | 2018-03-10 14:54 | ECG ---
Date Performed: 03/09/2018 Time Performed: 12:42:49 PTAGE: 87 years EKG: ELECTRONIC VENTRICULAR PACEMAKER PACER SPIKES ARE NOT CLEARLY IDENTIFIED. Clinical correlat ion is recommended ABNORMAL RHYTHM ECG PREVIOUS TRACING : 02/04/2018 16.58 DOCTOR: Saleem Valentine Interpretating Date/Time 03/10/2018 14:53:40
[2018-03-10] MEDS: Enoxaparin Inj 40 MG/0.4 ML Syringe SQ SCH (15:27)
[2018-03-10] MEDS: Allopurinol 300 MG Tablet PO SCH (15:28)
[2018-03-10] MEDS ORDERED: Vancomycin Inj 1 GM/200 ML PIGGYBACK IV.SIG SCH (17:00)
[2018-03-10] MEDS: Vancomycin Inj 1,000 MG in Sodium Chlor 0.9% Inj 250 ML IV.SIG SCH (17:19)
--- NOTE | 2018-03-11 08:05 | P.DS ---
Date of admission: 03/09/18 15:23 Primary care physician: Gerson Payne MD Brief History from admission: This is a pleasant 87-year-old male patient with a known medical history of hypertension, obstructive sleep apnea, hypertension and BPH with multiple UTIs who presented to the ED with complaints of right arm erythema. Patient states that a few days ago he was playing with his cat and he was scratched and subsequently developed a right forearm redness with swelling and increasing pain. Since that time he has developed a subjective fever of 100.7 at home and has become generally weak. He reports to the emergency department with generalized weakness and pain in the right upper extremity as well as some shortness of breath with activity. Patient has been following with Dr. Eugene, urology, has recently finished a dose of ciprofloxacin for UTI and hematuria. Patient states that he has a follow-up appointment last week and his urine was clean. He denies any recent dysuria or hematuria. Patient does live at home with his , is able to perform all ADLs per self. He does admit to following with Dr. Anne, cardiology, states that he has a cardiac cath scheduled next Wednesday for possible stent placement due to an abnormality found on his nuclear stress test a couple months ago. This catheterization has been long coming, although has been canceled several times secondary to his recent hospitalizations and illness. It should be noted patient was admitted on February 04, 2018 for generalized weakness and possible sepsis secondary to UTI. Upon assessment today, right upper extremity erythematous and painful to touch. He does have obstructive sleep apnea and uses CPAP at home, is not on home O2. DS: Diagnosis - Discharge Diagnosis (1) Cellulitis Status: Acute DS: Medications - Discharge Medications Prescriptions: hydrocodone-acetaminophen 1 tab PO Q6H PRN #10 tab PRN Reason: Pain Scale 1 To 5 sulfamethoxazole-trimethoprim [Bactrim] 1 tab PO BID 10 Days #20 tab DS: Summary Hospital Course: This is an 87-year-old male patient states that he had redness to his throat for several days possibly secondary to his cat scratching him. He did report a fever of 100.7 at home. Was cardiac on presentation. Afebrile throughout the hospitalization. Patient did not meet sepsis criteria. Lactic acid was 1.4. Chest x-ray was negative. Patient was started on Ancef IV given 1/2 L NS bolus D. Was continued on IV fluids. Blood cultures drawn and initial culture showing staph aureus in 1 bottle. Second bottles showing no growth 1 day. Will follow for the day. Spoke to microbiology, initial bilateral growing strep viridans and coag staph, likely contaminants. Right humerus and forearm x -ray reviewed showing no fracture or foreign body. No abscess was mentioned. Right upper extremity venous Doppler US ordered and showing no DVT. Patient does have a recent history of UTIs. UA negative on presentation. Patient follows with urologist, Dr. Eugene, has recently finished Cipro dose a couple weeks ago. History of hypertension, chronic stable during. History of BPH, continued on home tamsulosin. History of obstructive sleep apnea, continued on Cpap. Stabilized during hospitalization and on day of discharge. Pain is well controlled. Erythema improved. Will DC home on PO antibiotics. - Time Spent with Patient Total time spent providing and/or coordinating discharge services: Greater than 30 minutes - Quality: VTE Deep Vein Thrombosis/Pulmonary Embolism Present on Admission: No Exam Vital signs: Vital Signs 03/10/18 12:00 03/10/18 16:00 03/10/18 20:00 Temperature 98.0 F 97.4 F L 99.4 F Pulse Rate 72 76 74 Respiratory Rate 17 15 18 Blood Pressure 167/78 H 147/90 H 146/75 H Pulse Oximetry 94 L 93 L 94 L 03/11/18 00:00 Temperature 97.2 F L Pulse Rate 59 L Respiratory Rate 18 Blood Pressure 122/69 Pulse Oximetry 93 L Intake & Output 03/10/18 03/11/18 03/11/18 18:59 06:59 18:59 Intake Total 2450 / 2450 100 / 100 Output Total 400 / 400 Balance 2450 / 2450 -300 / -300 Weight 93 kg Intake: IV 2150 / 2150 100 / 100 NS + KCl 20 mEq Inj 1,000 ML @ 1700 / 1700 42 mls/hr IV.CONT .[id number] [facility] Rx#:[id number] Vancomycin Inj 1,000 MG In NS 250 / 250 Inj 250 ML @ 250 mls/hr IV.SIG Q24H [facility] Rx#:[id number] Ancef Inj 1,000 MG In NS Inj 200 / 200 100 / 100 100 ML @ 200 mls/hr IV.SIG Q8H [facility]ITA Rx#:[id number] Oral 300 / 300 Output: Urine 400 / 400 Other: # Voids 3 Date of Last Bowel Movement 03/10/18 03/10/18 # Bowel Movements 1 Narrative: GENERAL: Well-developed, well-nourished patient in NAD. SKIN: Warm and dry. No rash. Right upper extremity erythema improving over the past couple of days, warm to touch, no pain to palpation. HEAD: Normocephalic. Atraumatic. EYES: Pupils equal and round. No scleral icterus. No injection or drainage. ENT: No nasal bleeding or discharge. Mucous membranes pink and moist. NECK: Supple. Trachea midline. CARDIOVASCULAR: Regular rate and rhythm. S1, S2 noted. No murmur appreciated. RESPIRATORY: No accessory muscle use. Clear to auscultation. Breath sounds equal bilaterally. GASTROINTESTINAL: Abdomen soft, non-tender, nondistended. Normoactive bowel sounds x4. MUSCULOSKELETAL: No obvious deformities. Extremities without clubbing, cyanosis , or edema. NEUROLOGICAL: Awake and alert. No obvious cranial nerve deficits. Motor grossly within normal limits. 5/5 muscle strength in bilateral upper and lower extremities. Normal speech. PSYCHIATRIC: Appropriate mood and affect; insight and judgment normal. Results Procedures completed during hospitalization: None Labs on day of discharge: Preliminary micro results at discharge 03/09/18 13:24 Aerobic Blood Culture - Preliminary Blood - Peripheral No growth in 1 day Anaerobic Blood Culture - Preliminary gram positive cocci 03/09/18 13:00 Aerobic Blood Culture - Preliminary Blood - Peripheral No growth in 1 day Anaerobic Blood Culture - Preliminary No growth in 1 day - Impressions ITS Impressions Forearm X-Ray 03/09/18 12:32 CONCLUSION: Negative for fracture or radiopaque foreign body Humerus X-Ray 03/09/18 12:32 CONCLUSION: Negative for fracture or radiopaque foreign body Chest X-Ray 03/09/18 12:33 CONCLUSION: Pacemaker with mild compensated cardiomegaly Venous Doppler Study 03/10/18 00:00 CONCLUSION: 1. No evidence of DVT. Discharge Plan - Discharge Disposition Patient Disposition: /Home Health Service - Discharge Condition Condition: Fair - Discharge Order Discharge Orders: Discharge Order (Routine); Ordered 03/11/18 Ordered By: Natalya Lopez - Discharge Details Anticipated Discharge Date: 03/11/18 - Physicians Team Primary Care Provider: Gerson Payne Attending Provider: Ronn Henao
[2018-03-11] MEDS ORDERED: amLODIPine 5 MG Tablet PO SCH (09:00)
[2018-03-11] MEDS: Senna/Docusate Sodium 8.6/50 MG Tablet PO SCH (09:05)
[2018-03-11] MEDS: Allopurinol 300 MG Tablet PO SCH (09:05)
[2018-03-11] MEDS: Vancomycin Inj 1,000 MG in Sodium Chlor 0.9% Inj 250 ML IV.SIG SCH ×2 (14:50→16:30)
[2018-03-11] MEDS: Enoxaparin Inj 40 MG/0.4 ML Syringe SQ SCH (16:20)
== END 2018-03-11 16:50 | disposition home health service (06) ==
LOC: PHED 12:03 → PHEDA 12:03 → PH3 16:58
PROVIDERS: ADMIT Internal Medicine; ATTEND Internal Medicine
DX: Z90.79 Acquired absence of other genital organ(s); Z96.60 Presence of unspecified orthopedic joint implant; I11.9 Hypertensive heart disease without heart failure; B95.7 Other staphylococcus as the cause of diseases classified elsewhere; R53.1 Weakness; N40.0 Benign prostatic hyperplasia without lower urinary tract symptoms; J34.2 Deviated nasal septum; Z87.891 Personal history of nicotine dependence; G47.33 Obstructive sleep apnea (adult) (pediatric); K21.9 Gastro-esophageal reflux disease without esophagitis; R26.81 Unsteadiness on feet; M10.9 Gout, unspecified; Z87.440 Personal history of urinary (tract) infections; L03.113 Cellulitis of right upper limb; R55 Syncope and collapse

== ENCOUNTER 2018-06-30 09:09 | Inpatient (IN) ==
[2018-06-30] MEDS ORDERED: Piperacil/Tazo 4.5 GM Premix 4.5 GM/100 ML BAG IV.SIG STA (09:50)
[2018-06-30] MEDS ORDERED: Vancomycin Inj 1,250 MG in Sodium Chlor 0.9% Inj 250 ML IV.SIG ONE (09:53)
[2018-06-30] MEDS ORDERED: Sod Chloride 0.9% Inj 1,000 ML IV.SIG SCH ×2 (10:00)
--- NOTE | 2018-06-30 10:00 | ED ---
HPI General Chief complaint: Urogenital-Male Stated complaint: poss uti Time Seen by Provider: 06/30/18 09:21 Source: patient Mode of arrival: wheelchair Limitations: no limitations History of Present Illness HPI narrative: This 87-year-old male is brought by his . He is complaining of generalized weakness. He has had sepsis in the past related to urinary tract infections and he feels that he is having that problem now. Has had some trouble urinating he dribbles worse than usual. He has had ongoing problems with his urinary tract. He has a device called a uro-lift which is located in his prostate to keep his urethra open. He has had this for several years. He was seen on Wednesday at Dr. Eugene's office and had urodynamic studies done which he was told was okay. He felt all right after these studies. He started feeling weak yesterday too weak to get out of the chair. He is not aware of fever. Is felt like this previously when he has had urinary tract infection associated with sepsis he does not have any headache or focal weakness. He started feeling a little bit weak yesterday but much worse this morning. This morning he was unable to walk and had to be carried to his car to be transported here. He has been having some trouble with shortness of breath recently. He has seen Dr. Cruz. He had a cardiac cath done in March and was told that that was okay. Related Data Home Medications Medication Instructions Recorded Confirmed allopurinol 300 mg PO DAILY 02/03/18 06/30/18 ascorbic acid (vitamin C) 100 mg PO DAILY 02/03/18 06/30/18 aspirin [Aspir-81] 81 mg PO DAILY 02/03/18 06/30/18 cyanocobalamin (vitamin B-12) 5,000 mcg PO DAILY 03/09/18 06/30/18 esomeprazole magnesium 40 mg PO DAILY 03/09/18 06/30/18 amlodipine 5 mg PO DAILY 03/28/18 06/30/18 cholecalciferol (vitamin D3) 2,000 unit PO DAILY 03/28/18 06/30/18 [Vitamin D3] cefuroxime axetil 500 mg PO Q12H 06/30/18 06/30/18 tamsulosin [Flomax] 0.8 mg PO DAILY 06/30/18 06/30/18 Previous Rx's Medication Instructions Recorded hydrocodone-acetaminophen 1 tab PO Q6H PRN #10 tab 03/11/18 Allergies Allergy/AdvReac Type Severity Reaction Status Date / Time monosodium glutamate AdvReac Severe Nausea/Vomi Verified 06/30/18 09:10 ting Review of Systems Constitutional Reports weakness Respiratory Reports dyspnea [facility] Medical History Medical History Arthritis (Acute) Elevated cholesterol (Acute) UTI (urinary tract infection) (Acute) BPH (benign prostatic hyperplasia) (Acute) Cheek injury (Acute) Degenerative disc disease (Acute) Deviated septum (Acute) GERD (gastroesophageal reflux disease) (Acute) Gout (Acute) Head injury (Acute) History of frequent urinary tract infections (Acute) Hypertension (Acute) Obstructive sleep apnea on CPAP (Acute) Pacemaker (Acute) Syncope (Acute) Surgical History Surgical History History of bladder surgery (Acute) History of facial surgery (Acute) History of nasal surgery (Acute) S/P wrist surgery (Acute) Hx of joint replacement (Acute) S/P TURP (Acute) Family History Family History Other No pertinent family history Social History Social History Substance History: No History of Abuse Second Hand Smoke Exposure: No Smoking Status: Former smoker Tobacco Type: Pipe How Often Do You Have a Drink Containing Alcohol: 2 to 3 times a week Recent Travel in [facility] within the Last 8 Weeks: No Immunization History Tetanus Immunization Year if Known: 2018 Exam Narrative Exam Narrative: GENERAL: Well-developed male SKIN: Focused skin assessment warm/dry. HEAD: Atraumatic. Normocephalic. EYES: Pupils equal and round. No scleral icterus. No injection or drainage. ENT: No nasal bleeding or discharge. Mucous membranes pink and moist. NECK: Trachea midline. No JVD. CARDIOVASCULAR: Regular rate and rhythm. No murmur appreciated. RESPIRATORY: No accessory muscle use. Clear to auscultation. Breath sounds equal bilaterally. GASTROINTESTINAL: Abdomen soft, non-tender, nondistended. Hepatic and splenic margins not palpable. MUSCULOSKELETAL: No obvious deformities. No clubbing. No cyanosis. No edema. NEUROLOGICAL: Awake and alert. No obvious cranial nerve deficits. Motor grossly weak symmetrically. Speech is normal PSYCHIATRIC: Appropriate mood and affect; insight and judgment normal. Course Initial Documented Vital Signs Temperature 99.5 F 06/30/18 09:10 Pulse Rate 100 H 06/30/18 09:10 Respiratory Rate 16 06/30/18 09:10 Blood Pressure 118/69 06/30/18 09:10 Pulse Oximetry 92 L 06/30/18 09:10 Last Documented Vital Signs Temperature 99.7 F H 06/30/18 10:10 Pulse Rate 97 H 06/30/18 12:21 Respiratory Rate 16 06/30/18 12:21 Blood Pressure 148/76 H 06/30/18 12:21 Pulse Oximetry 93 L 06/30/18 12:21 Medical Decision Making MDM Narrative Medical decision making narrative: White count is 11,000. Urine does show urinary tract infection. Patient has been started on IV fluids. His vital signs have been stable. A CT scan of the brain is negative. Patient is complaining of generalized weakness and in the past this has been a precursor to sepsis. He will be admitted for observation. Antibiotics have been started Medical Screen Exam Complete: Yes Emergency Medical Condition: Yes Lab Data Result diagrams: 06/30/18 10:15 06/30/18 10:15 Lab Results 06/30/18 06/30/18 06/30/18 Range/Units 10:15 10:15 10:15 CBC w Diff Slide review pending WBC 11.4 H (4.0-11.0) th/mm3 RBC 4.23 L (4.50-5.90) mil/mm3 Hgb 14.1 (13.0-17.0) gm/dL Hct 42.6 (39.0-51.0) % MCV 100.8 H (80.0-100.0) fL MCH 33.4 (27.0-34.0) pg MCHC 33.1 (32.0-36.0) % RDW 13.8 (11.6-17.2) % Plt Count 156 (150-450) th/mm3 MPV 7.7 (7.0-11.0) fL Neut % (Auto) 89.8 H (16.0-70.0) % Lymph % (Auto) 2.1 L (9.0-44.0) % Johnston % (Auto) 7.8 (0.0-8.0) % Eos % (Auto) 0.1 (0.0-4.0) % Baso % (Auto) 0.2 (0.0-2.0) % Neut # (Auto) 10.3 H (1.8-7.7) th/mm3 Lymph # (Auto) 0.2 L (1.0-4.8) th/mm3 Johnston # (Auto) 0.9 (0.0-0.9) th/mm3 Eos # (Auto) 0.0 (0.0-0.4) th/mm3 Baso # (Auto) 0.0 (0.0-0.2) th/mm3 WBC Differential . Diff Scan Auto diff confirmed Differential Comment . Platelet Estimate Normal (Normal) Platelet Morphology Normal (Normal) RBC Morphology Normal (Normal) Sodium 136 (136-145) meq/L Potassium 3.6 (3.5-5.1) meq/L Chloride 100 (98-107) meq/L Carbon Dioxide 27.4 (21.0-32.0) meq/L Anion Gap 9 (5-15) meq/L BUN 18 (7-18) mg/dL Creatinine 1.20 (0.60-1.30) mg/dL Estimated GFR 58 L (>89) mL/min Random Glucose 112 H (74-106) mg/dL Lactic Acid 1.3 (0.4-2.0) mmol/L Calcium 8.4 L (8.5-10.1) mg/dL Magnesium 2.2 (1.5-2.5) mg/dL Total Bilirubin 1.1 H (0.2-1.0) mg/dL AST 22 (15-37) U/L ALT 22 (12-78) U/L Alkaline Phosphatase 61 (45-117) U/L B-Natriuretic Peptide (0-100) pg/mL Total Protein 7.2 (6.4-8.2) g/dL Albumin 3.5 (3.4-5.0) g/dL Urine Color (Yellw/Straw) Urine Clarity (Clear) Urine pH (5.0-8.5) Ur Specific [place] (1.002-1.035) Urine Protein (Neg-Trace) mg/dL Urine Glucose (UA) (Negative) mg/dL Urine Ketones (Negative) mg/dL Urine Occult Blood (Negative) Urine Nitrate (Negative) Urine Bilirubin (Negative) Urine Urobilinogen (Less than 2) mg/dL Ur Leukocyte Esterase (Negative) Urine RBC (0-3) /hpf Urine WBC (0-5) /hpf Urine WBC Clumps (None) Micro UA Comment Ur Microscopic Review Urine Culture Comments 06/30/18 06/30/18 Range/Units 10:30 12:05 CBC w Diff WBC (4.0-11.0) th/mm3 RBC (4.50-5.90) mil/mm3 Hgb (13.0-17.0) gm/dL Hct (39.0-51.0) % MCV (80.0-100.0) fL MCH (27.0-34.0) pg MCHC (32.0-36.0) % RDW (11.6-17.2) % Plt Count (150-450) th/mm3 MPV (7.0-11.0) fL Neut % (Auto) (16.0-70.0) % Lymph % (Auto) (9.0-44.0) % Johnston % (Auto) (0.0-8.0) % Eos % (Auto) (0.0-4.0) % Baso % (Auto) (0.0-2.0) % Neut # (Auto) (1.8-7.7) th/mm3 Lymph # (Auto) (1.0-4.8) th/mm3 Johnston # (Auto) (0.0-0.9) th/mm3 Eos # (Auto) (0.0-0.4) th/mm3 Baso # (Auto) (0.0-0.2) th/mm3 WBC Differential Diff Scan Differential Comment Platelet Estimate (Normal) Platelet Morphology (Normal) RBC Morphology (Normal) Sodium (136-145) meq/L Potassium (3.5-5.1) meq/L Chloride (98-107) meq/L Carbon Dioxide (21.0-32.0) meq/L Anion Gap (5-15) meq/L BUN (7-18) mg/dL Creatinine (0.60-1.30) mg/dL Estimated GFR (>89) mL/min Random Glucose (74-106) mg/dL Lactic Acid (0.4-2.0) mmol/L Calcium (8.5-10.1) mg/dL Magnesium (1.5-2.5) mg/dL Total Bilirubin (0.2-1.0) mg/dL AST (15-37) U/L ALT (12-78) U/L Alkaline Phosphatase (45-117) U/L B-Natriuretic Peptide 100 (0-100) pg/mL Total Protein (6.4-8.2) g/dL Albumin (3.4-5.0) g/dL Urine Color Yellow (Yellw/Straw) Urine Clarity Clear (Clear) Urine pH 7.5 (5.0-8.5) Ur Specific [place] 1.010 (1.002-1.035) Urine Protein Trace (Neg-Trace) mg/dL Urine Glucose (UA) Negative (Negative) mg/dL Urine Ketones Negative (Negative) mg/dL Urine Occult Blood Small H (Negative) Urine Nitrate Positive H (Negative) Urine Bilirubin Negative (Negative) Urine Urobilinogen 0.2 (Less than 2) mg/dL Ur Leukocyte Esterase Moderate H (Negative) Urine RBC 0-3 (0-3) /hpf Urine WBC 9-20 H (0-5) /hpf Urine WBC Clumps Few H (None) Micro UA Comment Culture indicated Ur Microscopic Review Microscopic reviewed Urine Culture Comments Culture indicated Imaging Data Radiologist's impression: Chest X-Ray 06/30/18 09:50 CONCLUSION: Stable chest without evidence of acute process. COPD Head CT 06/30/18 11:07 CONCLUSION: 1. Negative noncontrast head CT. . Discharge Plan Discharge Disposition Patient Disposition: ED Admit(ED Internal Use Only) Discharge Condition Condition: Fair Discharge Order Discharge Orders: ED Use Only Admit Order (Routine); Ordered 06/30/18 Ordered By: Germain Smith Discharge Details Diagnosis: Acute UTI, Generalized weakness Physicians Team ED Provider: Germain Smith Primary Care Provider: Gerson Payne Rxs /Orders / Referrals /Forms Prescriptions: No Action aspirin [Aspir-81] 81 mg Tablet,Delayed Release (Dr/Ec) 81 mg PO DAILY RF: 0 allopurinol 300 mg Tablet 300 mg PO DAILY RF: 0 ascorbic acid (vitamin C) 100 mg Tablet,Chewable 100 mg PO DAILY RF: 0 tamsulosin [Flomax] 0.4 mg Capsule 0.8 mg PO DAILY RF: 0 cefuroxime axetil 500 mg Tablet 500 mg PO Q12H RF: 0 cyanocobalamin (vitamin B-12) 5,000 mcg Tablet,Disintegrating 5,000 mcg PO DAILY RF: 0 esomeprazole magnesium 40 mg Capsule,Delayed Release(Dr/Ec) 40 mg PO DAILY RF: 0 hydrocodone-acetaminophen 5-325 mg Tablet 1 tab PO Q6H PRN (Reason: Pain Scale 1 To 5) Qty: 10 RF: 0 amlodipine 5 mg Tablet 5 mg PO DAILY RF: 0 cholecalciferol (vitamin D3) [Vitamin D3] 2,000 unit Capsule 2,000 unit PO DAILY RF: 0 Discharge Interventions Interventions: Vital Signs Last Done: 06/30/18 12:21 Status ED Status: With Doctor
--- NOTE | 2018-06-30 10:25 | XR ---
EXAM DATE: 06/30/2018 10:18 AM EST AGE/SEX: 87 years / Male INDICATIONS: Fever, weakness, possible UTI. CLINICAL DATA: This is the patient's initial encounter. Patient reports that signs and symptoms have been present for 2 days and indicates a pain score of 0/10. MEDICAL/SURGICAL HISTORY: Arthritis. Hypercholesterolemia. Gastroesophageal reflux disease. Gout. Hypertension. Frequent UTI. Pacemaker. Cardiac cath. TURP. COMPARISON: [facility], CHEST 1V SINGLE AP, 03/09/2018. . FINDINGS: Lungs are hyperaerated. There is no evidence of acute airspace disease or congestion. Heart and mediastinal structures are stable. Cardiac pacemaker remains in good position. CONCLUSION: Stable chest without evidence of acute process. COPD Electronically signed by: Oscar Burgess MD 06/30/2018 10:24 AM EST
[2018-06-30 10:42] LABS: Baso % (Auto) 0.2 % (0.0-2.0); Chloride 100 meq/L (98-107); Eos % (Auto) 0.1 % (0.0-4.0); Hematocrit 42.6 % (39.0-51.0); Hemoglobin 14.1 gm/dL (13.0-17.0); Lymph # (Auto) 0.2 th/mm3 (1.0-4.8); Lymph % (Auto) 2.1 % (9.0-44.0); Mean Corpuscular HGB Conc 33.1 % (32.0-36.0); Mean Corpuscular Hemoglobin 33.4 pg (27.0-34.0); Mean Corpuscular Volume 100.8 fL (80.0-100.0); Mean Platelet Volume 7.7 fL (7.0-11.0); Mono # (Auto) 0.9 th/mm3 (0.0-0.9); Mono % (Auto) 7.8 % (0.0-8.0); Neut # (Auto) 10.3 th/mm3 (1.8-7.7); Neut % (Auto) 89.8 % (16.0-70.0); Platelet Count 156 th/mm3 (150-450); Potassium 3.6 meq/L (3.5-5.1); Red Blood Count 4.23 mil/mm3 (4.50-5.90); Red Cell Distribution Width 13.8 % (11.6-17.2); Sodium 136 meq/L (136-145); White Blood Count 11.4 th/mm3 (4.0-11.0)
[2018-06-30 10:45] LABS: Calcium 8.4 mg/dL (8.5-10.1)
[2018-06-30 10:46] LABS: Albumin 3.5 g/dL (3.4-5.0); Anion Gap 9 meq/L (5-15); Blood Urea Nitrogen 18 mg/dL (7-18); Carbon Dioxide 27.4 meq/L (21.0-32.0); Glucose,Random 112 mg/dL (74-106); Magnesium 2.2 mg/dL (1.5-2.5)
[2018-06-30 10:49] LABS: Alanine Aminotransferase 22 U/L (12-78); Aspartate Aminotransferase 22 U/L (15-37); Glomerular Filtration Rate 58 mL/min (>89)
[2018-06-30 10:51] LABS: Total Protein 7.2 g/dL (6.4-8.2)
[2018-06-30 10:52] LABS: Alkaline Phosphatase 61 U/L (45-117)
[2018-06-30 11:28] LABS: Platelet Estimate Normal (Normal); RBC Morphology Normal (Normal)
[2018-06-30 11:29] LABS: Platelet Morphology Normal (Normal)
--- NOTE | 2018-06-30 12:02 | ECG ---
Date Performed: 06/30/2018 Time Performed: 10:06:33 PTAGE: 87 years EKG: Marked baseline artifact Possible Sinus rhythm with 1st AV block And premature ectopic beat. Nonspecific intraventricular conduction delay Compare d to prior electrocardiogram, rate has increased . PREVIOUS TRACING : 03/28/2018 06.20 DOCTOR: Crescencio Yanes Interpretating Date/Time 06/30/2018 12:01:28
[2018-06-30 12:11] LABS: Bilirubin,Urine Negative (Negative); Clarity,Urine Clear (Clear); Color,Urine Yellow (Yellw/Straw); Glucose,Urine (UA) Negative (Negative); Leukocyte Esterase,Urine Moderate (Negative); Nitrite,Urine Positive (Negative); PH,Urine 7.5 (5.0-8.5); Urobilinogen,Urine 0.2 mg/dL (Less than 2)
[2018-06-30 12:21] LABS: RBC,Urine 0-3 /hpf (0-3)
--- NOTE | 2018-06-30 12:29 | CT ---
EXAM DATE: 06/30/2018 12:21 PM EST AGE/SEX: 87 years / Male INDICATIONS: General weakness. CLINICAL DATA: This is the patient's initial encounter. Patient reports that signs and symptoms have been present for 1 day and indicates a pain score of 0/10. MEDICAL/SURGICAL HISTORY: Gastroesophageal reflux disease. Cardiovascular disease. Hypertension. Pacemaker. Bladder surgery. Facial surgery. RADIATION DOSE: 63.67 CTDI (mGy) COMPARISON: [facility], CT BRAIN W/O CONTRAST, 10/25/2015. . TECHNIQUE: CT of the head without contrast. Using automated exposure control and adjustment of the mA and/or kV according to patient size, radiation dose was kept as low as reasonably achievable to ob tain optimal diagnostic quality images. DICOM format image data is available electronically for revi ew and comparison. FINDINGS: Cerebrum: The ventricles are normal for age. No evidence of midline shift, mass lesion, hemorrhage or acute infarction. No extraaxial fluid collections are seen. Posterior Fossa: The cerebellum and brainstem are intact. The 4th ventricle is midline. The cerebe llopontine angle is unremarkable. Extracranial: The visualized portion of the orbits is intact. Skull: The calvaria is intact. No evidence of skull fracture. CONCLUSION: 1. Negative noncontrast head CT. . Electronically signed by: Jose Foster MD Board Certified Radiologist 06/30/2018 12:27 PM THERESA Tamayo
[2018-06-30] MEDS ORDERED: Bisacodyl 10 MG Supp RECTAL PRN (13:13)
--- NOTE | 2018-06-30 13:24 | P.HP ---
History of Present Illness Primary Care Physician: Gerson Payne MD Chief Complaint: Generalized weakness and urinary complaints History of Present Illness: This is an 87-year-old male patient with a known medical history of hypertension , frequent UTIs who presented to the ED with complaints of generalized weakness , chills and urinary frequency and burning. Patient states that since last Wednesday after seeing Dr. Abarca office and undergoing a urodynamic study as well as a cystoscopy that he developed urinary frequency as well as burning and this morning he woke up feeling feverish as well as chills and generalized weakness. He states that he has been unable to get out of the chair. At baseline he uses a walker and was unable to even ambulate this morning. Lives at home with his and is able to perform all ADLs per self. Patient does have a history of frequent urinary tract infections, has had sepsis in the past and 4 hospitalizations this year for urinary tract infection. Patient denies any recent antibiotic use. Denies any recent nausea, vomiting or diarrhea. At the time of assessment patient is lying in bed with apparent chills and rigors. White blood cell 11,000, tachycardic. Abnormal UA. Will be admitted for IV antibiotics and sepsis workup. - Diagnosis (1) Acute UTI (2) Generalized weakness Review of Systems All other systems reviewed negative except as stated in HPI PMFSH - History History Provided By: Patient - Medical History Medical History: Medical History (Last Reviewed 06/30/18 @ 13:20 by Natalya Lopez) Arthritis Elevated cholesterol UTI (urinary tract infection) BPH (benign prostatic hyperplasia) Cheek injury Degenerative disc disease Deviated septum GERD (gastroesophageal reflux disease) Gout Head injury History of frequent urinary tract infections Hypertension Obstructive sleep apnea on CPAP Pacemaker Syncope - Surgical History Surgical History: Surgical History (Last Reviewed 06/30/18 @ 13:20 by Natalya Lopez) History of bladder surgery History of facial surgery History of nasal surgery S/P wrist surgery Hx of joint replacement S/P TURP - Family History Family History: Family History (Last Reviewed 06/30/18 @ 13:21 by Natalya Lopez) Other No pertinent family history - Social History I have reviewed the patient's Social History: Yes - Tobacco History Second Hand Smoke Exposure: No Tobacco Use In Past 30 Days: No Smoking Status: Former smoker Tobacco Type: Pipe - Alcohol History How Often Do You Have a Drink Containing Alcohol: 2 to 3 times a week - Substance Use History Substance History: No History of Abuse - Travel History Recent Travel in the [place] Within the Last 8 Weeks: No - Immunization History Tetanus Immunization: <5 Years Tetanus Immunization Year if Known: 2018 Medications and Allergies Active Medications: Active Medications Acetaminophen (Tylenol) 650 mg PO Q4H PRN PRN Reason: Temp > 100.4 Al Hydroxide/Mg Hydroxide (Milk Of Magnesia Liq) 30 ml PO Q12H PRN PRN Reason: Mild Constipation Bisacodyl (Dulcolax Supp) 10 mg RECTAL DAILY PRN PRN Reason: SEVERE CONSITIPATION Sodium Chloride (Ns Inj) 1,000 mls @ 42 mls/hr IV.CONT .[id number] LITA Lactulose (Lactulose Liq) 30 ml PO DAILY PRN PRN Reason: SEVERE CONSITIPATION Ondansetron HCl (Zofran Inj) 4 mg IV.PUSH Q6H PRN PRN Reason: NAUSEA OR VOMITING Sennosides (Senokot) 17.2 mg PO Q12H PRN PRN Reason: Moderate Constipation Sodium Chloride (Ns Flush) 2 ml IV.FLUSH BID LITA Sodium Chloride (Ns Flush) 2 ml IV.FLUSH PRN PRN PRN Reason: FLUSH AFTER USING IV ACCESS Allergies Allergy/AdvReac Type Severity Reaction Status Date / Time monosodium glutamate AdvReac Severe Nausea/Vomi Verified 06/30/18 09:10 ting Home Medications Medication Instructions Recorded Confirmed Type allopurinol 300 mg PO DAILY 02/03/18 06/30/18 History ascorbic acid (vitamin C) 100 mg PO DAILY 02/03/18 06/30/18 History aspirin [Aspir-81] 81 mg PO DAILY 02/03/18 06/30/18 History cyanocobalamin (vitamin B-12) 5,000 mcg PO DAILY 03/09/18 06/30/18 History esomeprazole magnesium 40 mg PO DAILY 03/09/18 06/30/18 History amlodipine 5 mg PO DAILY 03/28/18 06/30/18 History cholecalciferol (vitamin D3) 2,000 unit PO DAILY 03/28/18 06/30/18 History [Vitamin D3] cefuroxime axetil 500 mg PO Q12H 06/30/18 06/30/18 History tamsulosin [Flomax] 0.8 mg PO DAILY 06/30/18 06/30/18 History Exam Vital signs: Vital Signs 06/30/18 09:10 06/30/18 10:00 06/30/18 10:10 Temperature 99.5 F 99.7 F H Pulse Rate 100 H 94 H 94 H Respiratory Rate 16 16 Blood Pressure 118/69 125/67 Pulse Oximetry 92 L 93 L 93 L 06/30/18 11:00 06/30/18 12:21 Temperature Pulse Rate 91 H 97 H Respiratory Rate 16 16 Blood Pressure 146/80 H 148/76 H Pulse Oximetry 92 L 93 L Intake & Output 06/29/18 06/30/18 06/30/18 18:59 06:59 18:59 Intake Total 2099 Balance 2099 Weight 96.2 kg Intake: IV 2099 Zosyn 4.5 GM Premix 4.5 gm In 100 / 100 100 ml @ 200 mls/hr IV.SIG STAT STA Rx#:[id number] NS Inj 1,000 ML @ 1000 mls/hr 1999 IV.SIG BOLUS LITA Rx#:[id number] Narrative: GENERAL: Well-developed, well-nourished patient in [facility]. SKIN: Warm and dry. No rash. HEAD: Normocephalic. Atraumatic. EYES: Pupils equal and round. No scleral icterus. No injection or drainage. ENT: No nasal bleeding or discharge. Mucous membranes pink and moist. NECK: Supple. Trachea midline. CARDIOVASCULAR: Regular rate and rhythm. S1, S2 noted. No murmur appreciated. RESPIRATORY: No accessory muscle use. Clear to auscultation. Breath sounds equal bilaterally. GASTROINTESTINAL: Abdomen soft, non-tender, nondistended. Normoactive bowel sounds x4. MUSCULOSKELETAL: No obvious deformities. Extremities without clubbing, cyanosis , or edema. NEUROLOGICAL: Awake and alert. No obvious cranial nerve deficits. Motor grossly within normal limits. 5/5 muscle strength in bilateral upper and lower extremities. Normal speech. PSYCHIATRIC: Appropriate mood and affect; insight and judgment normal. Results - Labs CBC & Chem 7: 06/30/18 10:15 06/30/18 10:15 Labs: Laboratory Results - last 24 hr 06/30/18 06/30/18 06/30/18 10:15 10:15 10:15 CBC w Diff Slide review pending WBC 11.4 H RBC 4.23 L Hgb 14.1 Hct 42.6 MCV 100.8 H MCH 33.4 MCHC 33.1 RDW 13.8 Plt Count 156 MPV 7.7 Neut % (Auto) 89.8 H Lymph % (Auto) 2.1 L [place] % (Auto) 7.8 Eos % (Auto) 0.1 Baso % (Auto) 0.2 Neut # (Auto) 10.3 H Lymph # (Auto) 0.2 L [place] # (Auto) 0.9 Eos # (Auto) 0.0 Baso # (Auto) 0.0 WBC Differential . Diff Scan Auto diff confirmed Differential Comment . Platelet Estimate Normal Platelet Morphology Normal RBC Morphology Normal Sodium 136 Potassium 3.6 Chloride 100 Carbon Dioxide 27.4 Anion Gap 9 BUN 18 Creatinine 1.20 Estimated GFR 58 L Random Glucose 112 H Lactic Acid 1.3 Calcium 8.4 L Magnesium 2.2 Total Bilirubin 1.1 H AST 22 ALT 22 Alkaline Phosphatase 61 B-Natriuretic Peptide Total Protein 7.2 Albumin 3.5 Urine Color Urine Clarity Urine pH Ur Specific [place] Urine Protein Urine Glucose (UA) Urine Ketones Urine Occult Blood Urine Nitrate Urine Bilirubin Urine Urobilinogen Ur Leukocyte Esterase Urine RBC Urine WBC Urine WBC Clumps Micro UA Comment Ur Microscopic Review Urine Culture Comments 06/30/18 06/30/18 10:30 12:05 CBC w Diff WBC RBC Hgb Hct MCV MCH MCHC RDW Plt Count MPV Neut % (Auto) Lymph % (Auto) [place] % (Auto) Eos % (Auto) Baso % (Auto) Neut # (Auto) Lymph # (Auto) [place] # (Auto) Eos # (Auto) Baso # (Auto) WBC Differential Diff Scan Differential Comment Platelet Estimate Platelet Morphology RBC Morphology Sodium Potassium Chloride Carbon Dioxide Anion Gap BUN Creatinine Estimated GFR Random Glucose Lactic Acid Calcium Magnesium Total Bilirubin AST ALT Alkaline Phosphatase B-Natriuretic Peptide 100 Total Protein Albumin Urine Color Yellow Urine Clarity Clear Urine pH 7.5 Ur Specific [place] 1.010 Urine Protein Trace Urine Glucose (UA) Negative Urine Ketones Negative Urine Occult Blood Small H Urine Nitrate Positive H Urine Bilirubin Negative Urine Urobilinogen 0.2 Ur Leukocyte Esterase Moderate H Urine RBC 0-3 Urine WBC 9-20 H Urine WBC Clumps Few H Micro UA Comment Culture indicated Ur Microscopic Review Microscopic reviewed Urine Culture Comments Culture indicated - Imaging Impressions Chest X-Ray 06/30/18 09:50 CONCLUSION: Stable chest without evidence of acute process. COPD Head CT 06/30/18 11:07 CONCLUSION: 1. Negative noncontrast head CT. . Caprini VTE Risk Assessment Caprini VTE Risk Assessment: Moderate/High Risk (score >= 2) Caprini Risk Assessment Model: Point Value = 1 Point Value = 2 Point Value = 3 Point Value = 5 Age 41-60 Minor surgery BMI > 25 kg/m2 Swollen legs Varicose veins or History of unexplained or recurrent spontaneous Oral contraceptives or hormone replacement Sepsis (< 1 month) Serious lung disease, including pneumonia (< 1 month) Abnormal pulmonary function Acute myocardial infarction Congestive heart failure (< 1 month) History of inflammatory bowel disease Medical patient at bed rest Age 61-74 Arthroscopic surgery Major open surgery (> 45 min) Laparoscopic surgery (> 45 min) Malignancy Confined to bed (> 72 hours) Immobilizing plaster cast Central venous access Age >= 75 History of VTE Family history of VTE Factor V Leiden Prothrombin [id number] Lupus anticoagulant Anticardiolipin antibodies Elevated serum homocysteine Heparin-induced thrombocytopenia Other congenital or acquired thrombophilia Stroke (< 1 month) Elective arthroplasty Hip, pelvis, or leg fracture Acute spinal cord injury (< 1 month) Prophylaxis Regimen: Total Risk Factor Score Risk Level Prophylaxis Regimen 0-1 Low Early ambulation 2 Moderate Order ONE of the following: *Sequential Compression Device (SCD) *Heparin 5000 units SQ BID 3-4 Higher Order ONE of the following medications: *Heparin 5000 units SQ TID *Enoxaparin/Lovenox 40 mg SQ daily (WT < 150 kg, CrCl > 30 mL/min) *Enoxaparin/Lovenox 30 mg SQ daily (WT < 150 kg, CrCl > 10-29 mL/min) *Enoxaparin/Lovenox 30 mg SQ BID (WT < 150 kg, CrCl > 30 mL/min) AND/OR *Sequential Compression Device (SCD) 5 or more Highest Order ONE of the following medications: *Heparin 5000 units SQ TID (Preferred with Epidurals) *Enoxaparin/Lovenox 40 mg SQ daily (WT < 150 kg, CrCl > 30 mL/min) *Enoxaparin/Lovenox 30 mg SQ daily (WT < 150 kg, CrCl > 10-29 mL/min) *Enoxaparin/Lovenox 30 mg SQ BID (WT < 150 kg, CrCl > 30 mL/min) AND *Sequential Compression Device (SCD) Assessment and Plan - Assessment (1) Acute UTI Code(s): N39.0 - Urinary tract infection, site not specified Status: Acute (2) Generalized weakness Code(s): R53.1 - Weakness Status: Acute - Plan This is an 87-year-old male patient with: Abnormal UA rule out UTI Leukocytosis History of BPH history of frequent UTIs -Patient presents with dysuria and frequency. UA showing white blood cells and leukocyte esterase. Follow urine culture. -Follows up with Dr. Eugene. Has underwent a recent cystoscopy and urodynamic study last Wednesday. -Patient was started on vancomycin and IV Zosyn, will continue. Given 2 L NS bolus. Will continue IV fluid. Monitor for overload. BNP normal. -Meets SIRS criteria. White blood cell 11,000. Tachycardic. Fever 100.6. Lactic acid normal. Will continue to monitor. -Blood cultures ordered and pending. Follow. UA negative. -Supportive care. Hypertension, chronic Continue home medications. Monitor blood pressure trends. DVT prophylaxis: SCDs.
[2018-06-30] MEDS: Sod Chloride 0.9% Inj 1,000 ML IV.CONT SCH (14:47)
[2018-06-30 15:45] LABS: ABG Base Excess 1.1 mmol/L (-2-2); ABG PCO2 32 mmHg (38-42); ABG PO2 60 mmHg (61-120)
[2018-06-30] MEDS: Acetaminophen 325 MG Tablet PO PRN (16:43)
[2018-06-30] MEDS: Piperacil/Tazo 3.375 GM Premix 50 ML IV.SIG SCH ×2 (17:23→22:08)
--- NOTE | 2018-06-30 21:29 | CT ---
EXAM DATE: 06/30/2018 9:20 PM EST AGE/SEX: 87 years / Male INDICATIONS: General weakness. Elevated d-dimer. Evaluate for pulmonary embolism. CLINICAL DATA: This is the patient's initial encounter. Patient reports that signs and symptoms have been present for 1 day and indicates a pain score of 0/10. MEDICAL/SURGICAL HISTORY: Hypertension. Gastroesophageal reflux disease. Pacemaker. TURP. Facial s urgery. Bladder surgery. RADIATION DOSE: 20.85 CTDI (mGy) COMPARISON: POI, CT CHEST W/O CONTRAST, 09/08/2017. . TECHNIQUE: Volumetric scanning was performed using a multi-row detector CT scanner during bolus infu dwaine of 75 ml Omnipaque 350 (iohexol) nonionic water-soluble contrast as a single exam dose. The chinmay a was post processed with a variety of visualization algorithms including full volume maximum intensi ty projection and sliding thin slab reformation. Using automated exposure control and adjustment of the mA and/or kV according to patient size, radiation dose was kept as low as reasonably achievable t o obtain optimal diagnostic quality images. DICOM format image data is available electronically for review and comparison. FINDINGS: Pulmonary Arteries: No filling defects are seen in the pulmonary arteries through the segmental vess els. The main pulmonary artery is normal in diameter. Lunmm nodule in the right upper lobe adjacent the major fissure. There is adjacent parenchymal s carring/atelectasis extending to the pleural surface. Linear parenchymal opacities at the lung bases bilaterally, more prominently on the right. Stable nodular scarring in the inferior right middle lobe measuring up to 3 mm. Pleura: No effusion, significant pleural thickening or pneumothorax. Mediastinum: Heart is unremarkable without pericardial effusion. Coronary artery calcifications. Sub centimeter mediastinal nodes do not meet CT size criteria. Osseous Structures: No abnormal focal lytic or blastic bony lesions. Other: Visulaized upper abdomen is unremarkable. CONCLUSION: 1. No CT evidence for pulmonary artery embolism as questioned. 2. 8 mm right upper lobe nodule. This was previously more in a tree-in-bud appearance and may reflec t resolving infectious/inflammatory process. Consider follow-up CT examination in 6-12 months to docu ment stability as clinically appropriate. 3. Stable right middle lobe scarring. 4. New linear parenchymal opacities at the lung bases most consistent with atelectasis. Differential considerations include chronic aspiration. 5. Coronary artery calcifications. Electronically signed by: Jamin Hughes MD Board Certified Radiologist 06/30/2018 9:28 PM [facility]ERESA T
[2018-06-30] MEDS: Heparin - SQ 10,000 UNITS/ML Vial SQ SCH (22:08)
[2018-07-01] MEDS: Piperacil/Tazo 3.375 GM Premix 50 ML IV.SIG SCH ×4 (05:59→22:09)
[2018-07-01 06:00] LABS: Baso % (Auto) 0.2 % (0.0-2.0); Eos % (Auto) 0.1 % (0.0-4.0); Hematocrit 37.5 % (39.0-51.0); Hemoglobin 12.5 gm/dL (13.0-17.0); Lymph # (Auto) 0.3 th/mm3 (1.0-4.8); Lymph % (Auto) 3.3 % (9.0-44.0); Mean Corpuscular HGB Conc 33.3 % (32.0-36.0); Mean Corpuscular Hemoglobin 33.4 pg (27.0-34.0); Mean Corpuscular Volume 100.3 fL (80.0-100.0); Mean Platelet Volume 7.6 fL (7.0-11.0); Mono # (Auto) 0.5 th/mm3 (0.0-0.9); Mono % (Auto) 5.3 % (0.0-8.0); Neut # (Auto) 8.3 th/mm3 (1.8-7.7); Neut % (Auto) 91.1 % (16.0-70.0); Platelet Count 115 th/mm3 (150-450); Red Blood Count 3.74 mil/mm3 (4.50-5.90); Red Cell Distribution Width 13.4 % (11.6-17.2); White Blood Count 9.1 th/mm3 (4.0-11.0)
[2018-07-01 06:08] LABS: Potassium 3.4 meq/L (3.5-5.1)
[2018-07-01 07:09] LABS: Calcium 7.6 mg/dL (8.5-10.1); Carbon Dioxide 26.4 meq/L (21.0-32.0)
[2018-07-01] MEDS: Heparin - SQ 10,000 UNITS/ML Vial SQ SCH ×2 (08:29→21:38)
[2018-07-01] MEDS: amLODIPine 5 MG Tablet PO SCH (08:30)
[2018-07-01] MEDS: Allopurinol 300 MG Tablet PO SCH (08:30)
--- NOTE | 2018-07-01 10:17 | P.PNIM ---
Subjective Interval history: Follow-up UTI and sepsis workup. Patient seen and examined, lying in bed comfortably no apparent distress. Improved overnight. Although he is continued on 2L nasal cannula. Ending on urine culture as well as blood cultures. He is eating well without any nausea or vomiting. Denies any pain, chest pain or shortness of breath. Afebrile overnight. Vital signs stable. Physical Exam Vital signs: Vital Signs 06/30/18 11:00 06/30/18 12:21 06/30/18 13:45 Temperature 100.6 F H Pulse Rate 91 H 97 H 89 Respiratory Rate 16 16 16 Blood Pressure 146/80 H 148/76 H 149/74 H Pulse Oximetry 92 L 93 L 93 L 06/30/18 14:30 06/30/18 16:00 06/30/18 16:01 Temperature 100.8 F H 101.1 F H Pulse Rate 98 H 96 H Respiratory Rate 20 20 Blood Pressure 133/67 131/64 Pulse Oximetry 91 L 95 91 L 06/30/18 20:00 06/30/18 20:30 07/01/18 00:00 Temperature 97.9 F 98 F Pulse Rate 76 86 Respiratory Rate 17 18 Blood Pressure 118/69 131/73 Pulse Oximetry 96 95 96 07/01/18 08:00 Temperature 97.0 F L Pulse Rate 79 Respiratory Rate 20 Blood Pressure 125/65 Pulse Oximetry 96 Intake & Output 06/30/18 07/01/18 07/01/18 18:59 06:59 18:59 Intake Total 3130 / 3130 100 / 100 Output Total 300 / 300 500 / 500 Balance 2830 / 2830 -400 / -400 Weight 93.5 kg 93.6 kg Intake: IV 2650 / 2650 100 / 100 Zosyn 3.375 GM Premix 50 ML @ 50 / 50 100 / 100 100 mls/hr IV.SIG Q6H LITA Rx#: [id number] Zosyn 4.5 GM Premix 4.5 gm In 100 / 100 100 ml @ 200 mls/hr IV.SIG STAT STA Rx#:[id number] NS Inj 1,000 ML @ 1000 mls/hr 1999 / 1999 IV.SIG BOLUS LITA Rx#:[id number] Vancomycin Inj 1,250 MG In NS 500 / 500 Inj 250 ML @ 250 mls/hr IV.SIG ONCE ONE Rx#:[id number] Oral 480 / 480 Output: Urine 300 / 300 500 / 500 Other: Weight On Admission 93.5 kg Narrative: GENERAL: Well-developed, well-nourished patient in [place]. SKIN: Warm and dry. No rash. HEAD: Normocephalic. Atraumatic. EYES: Pupils equal and round. No scleral icterus. No injection or drainage. ENT: No nasal bleeding or discharge. Mucous membranes pink and moist. NECK: Supple. Trachea midline. CARDIOVASCULAR: Regular rate and rhythm. S1, S2 noted. No murmur appreciated. RESPIRATORY: No accessory muscle use. Clear to auscultation. Breath sounds equal bilaterally. GASTROINTESTINAL: Abdomen soft, non-tender, nondistended. Normoactive bowel sounds x4. MUSCULOSKELETAL: No obvious deformities. Extremities without clubbing, cyanosis , or edema. NEUROLOGICAL: Awake and alert. No obvious cranial nerve deficits. Motor grossly within normal limits. 5/5 muscle strength in bilateral upper and lower extremities. Normal speech. PSYCHIATRIC: Appropriate mood and affect; insight and judgment normal. Results - Labs CBC & Chem 7: 07/01/18 05:10 07/01/18 05:10 Laboratory Results - last 24 hr 06/30/18 06/30/18 06/30/18 10:15 10:15 10:15 CBC w Diff Slide review pending WBC 11.4 H RBC 4.23 L Hgb 14.1 Hct 42.6 MCV 100.8 H MCH 33.4 MCHC 33.1 RDW 13.8 Plt Count 156 MPV 7.7 Neut % (Auto) 89.8 H Lymph % (Auto) 2.1 L [place] % (Auto) 7.8 Eos % (Auto) 0.1 Baso % (Auto) 0.2 Neut # (Auto) 10.3 H Lymph # (Auto) 0.2 L [place] # (Auto) 0.9 Eos # (Auto) 0.0 Baso # (Auto) 0.0 WBC Differential . Diff Scan Auto diff confirmed Differential Comment . Platelet Estimate Normal Platelet Morphology Normal RBC Morphology Normal D-Dimer Quant (PE/DVT) Puncture Site Patient Temperature O2 Saturation ABG pH ABG pCO2 ABG pO2 ABG HCO3 ABG O2 Content ABG Base Excess ABG Methemoglobin Gurdeep Test Hemoglobin Carboxyhemoglobin O2 Delivery Device Liter Flow Critical Value Sodium 136 Potassium 3.6 Chloride 100 Carbon Dioxide 27.4 Anion Gap 9 BUN 18 Creatinine 1.20 Estimated GFR 58 L Random Glucose 112 H Lactic Acid 1.3 Calcium 8.4 L Magnesium 2.2 Total Bilirubin 1.1 H AST 22 ALT 22 Alkaline Phosphatase 61 B-Natriuretic Peptide Total Protein 7.2 Albumin 3.5 Urine Color Urine Clarity Urine pH Ur Specific [place] Urine Protein Urine Glucose (UA) Urine Ketones Urine Occult Blood Urine Nitrate Urine Bilirubin Urine Urobilinogen Ur Leukocyte Esterase Urine RBC Urine WBC Urine WBC Clumps Micro UA Comment Ur Microscopic Review Urine Culture Comments 06/30/18 06/30/18 06/30/18 10:30 12:05 15:39 CBC w Diff WBC RBC Hgb Hct MCV MCH MCHC RDW Plt Count MPV Neut % (Auto) Lymph % (Auto) [place] % (Auto) Eos % (Auto) Baso % (Auto) Neut # (Auto) Lymph # (Auto) [place] # (Auto) Eos # (Auto) Baso # (Auto) WBC Differential Diff Scan Differential Comment Platelet Estimate Platelet Morphology RBC Morphology D-Dimer Quant (PE/DVT) Puncture Site Right radial Patient Temperature 98.6 O2 Saturation 90 ABG pH 7.50 H ABG pCO2 32 L ABG pO2 60 L ABG HCO3 24 ABG O2 Content 16.3 ABG Base Excess 1.1 ABG Methemoglobin 1.1 Gurdeep Test Present Hemoglobin 12.9 Carboxyhemoglobin 2.2 O2 Delivery Device Nasal cannula Liter Flow 2.00 Critical Value No Sodium Potassium Chloride Carbon Dioxide Anion Gap BUN Creatinine Estimated GFR Random Glucose Lactic Acid Calcium Magnesium Total Bilirubin AST ALT Alkaline Phosphatase B-Natriuretic Peptide 100 Total Protein Albumin Urine Color Yellow Urine Clarity Clear Urine pH 7.5 Ur Specific [place] 1.010 Urine Protein Trace Urine Glucose (UA) Negative Urine Ketones Negative Urine Occult Blood Small H Urine Nitrate Positive H Urine Bilirubin Negative Urine Urobilinogen 0.2 Ur Leukocyte Esterase Moderate H Urine RBC 0-3 Urine WBC 9-20 H Urine WBC Clumps Few H Micro UA Comment Culture indicated Ur Microscopic Review Microscopic reviewed Urine Culture Comments Culture indicated 06/30/18 07/01/18 07/01/18 16:20 05:10 05:10 CBC w Diff Auto diff final WBC 9.1 RBC 3.74 L Hgb 12.5 L Hct 37.5 L MCV 100.3 H MCH 33.4 MCHC 33.3 RDW 13.4 Plt Count 115 L MPV 7.6 Neut % (Auto) 91.1 H Lymph % (Auto) 3.3 L [place] % (Auto) 5.3 Eos % (Auto) 0.1 Baso % (Auto) 0.2 Neut # (Auto) 8.3 H Lymph # (Auto) 0.3 L [place] # (Auto) 0.5 Eos # (Auto) 0.0 Baso # (Auto) 0.0 WBC Differential . Diff Scan Differential Comment . Platelet Estimate Platelet Morphology RBC Morphology D-Dimer Quant (PE/DVT) 1.74 H Puncture Site Patient Temperature O2 Saturation ABG pH ABG pCO2 ABG pO2 ABG HCO3 ABG O2 Content ABG Base Excess ABG Methemoglobin Gurdeep Test Hemoglobin Carboxyhemoglobin O2 Delivery Device Liter Flow Critical Value Sodium 139 Potassium 3.4 L Chloride 104 Carbon Dioxide 26.4 Anion Gap 9 BUN 18 Creatinine 1.30 Estimated GFR 52 L Random Glucose 112 H Lactic Acid Calcium 7.6 L D Magnesium Total Bilirubin AST ALT Alkaline Phosphatase B-Natriuretic Peptide Total Protein Albumin Urine Color Urine Clarity Urine pH Ur Specific [place] Urine Protein Urine Glucose (UA) Urine Ketones Urine Occult Blood Urine Nitrate Urine Bilirubin Urine Urobilinogen Ur Leukocyte Esterase Urine RBC Urine WBC Urine WBC Clumps Micro UA Comment Ur Microscopic Review Urine Culture Comments Microbiology 06/30/18 10:40 Nasal Wash Influenza Types A,B Antigen - Final Negative for FLU A and B antigen Infection due to influenza A or B cannot be ruled out since the antigen present in the sample may be below the detection limit of the test. - Imaging Impressions Chest X-Ray 06/30/18 09:50 CONCLUSION: Stable chest without evidence of acute process. COPD Head CT 06/30/18 11:07 CONCLUSION: 1. Negative noncontrast head CT. . Chest CTA 06/30/18 18:38 CONCLUSION: 1. No CT evidence for pulmonary artery embolism as questioned. 2. 8 mm right upper lobe nodule. This was previously more in a tree-in-bud appearance and may reflect resolving infectious/inflammatory process. Consider follow-up CT examination in 6-12 months to document stability as clinically appropriate. 3. Stable right middle lobe scarring. 4. New linear parenchymal opacities at the lung bases most consistent with atelectasis. Differential considerations include chronic aspiration. 5. Coronary artery calcifications. Assessment and Plan - Assessment (1) Acute UTI Code(s): N39.0 - Urinary tract infection, site not specified Status: Acute (2) Generalized weakness Code(s): R53.1 - Weakness Status: Acute - Plan This is an 87-year-old male patient with: SIRS Abnormal UA rule out UTI Leukocytosis History of BPH history of frequent UTIs -Patient presents with dysuria and frequency. UA showing white blood cells and leukocyte esterase. Follow urine culture. -White blood cell 11,000. Tachycardic. Fever 100.6. Lactic acid normal. Leukocytosis, tachycardia and fever suspected source urinary tract. -Follows up with Dr. Eugene. Has underwent a recent cystoscopy and urodynamic study last Wednesday. -Patient was started on vancomycin and IV Zosyn, will continue. Given 2 L NS bolus. Will continue IV fluid. Monitor for overload. BNP normal. -Blood cultures ordered and pending. Follow. Urine culture pending. -Supportive care. Hypertension, chronic Continue home medications. Monitor blood pressure trends. DVT prophylaxis: SCDs.
[2018-07-01] MEDS ORDERED: Vancomycin Inj 1,000 MG in Sodium Chlor 0.9% Inj 250 ML IV.SIG SCH (14:00)
[2018-07-01] MEDS: Sod Chloride 0.9% Inj 1,000 ML IV.CONT SCH (14:17)
[2018-07-01] MEDS: Acetaminophen 325 MG Tablet PO PRN (21:37)
[2018-07-02] MEDS: Piperacil/Tazo 3.375 GM Premix 50 ML IV.SIG SCH (04:24)
[2018-07-02] MEDS: Sod Chloride 0.9% Inj 1,000 ML IV.CONT SCH (04:24)
[2018-07-02 08:49] LABS: Potassium 3.1 meq/L (3.5-5.1)
[2018-07-02 08:52] LABS: Carbon Dioxide 26.4 meq/L (21.0-32.0)
[2018-07-02] MEDS: Heparin - SQ 10,000 UNITS/ML Vial SQ SCH ×2 (09:18→22:32)
[2018-07-02] MEDS: amLODIPine 5 MG Tablet PO SCH (09:18)
[2018-07-02] MEDS: Allopurinol 300 MG Tablet PO SCH (09:18)
--- NOTE | 2018-07-02 10:47 | P.PNIM ---
Subjective Interval history: Follow up UTI. Patient seen and examined, Sitting in chair comfortably in [facility]. Much improved today. Slept overnight. Eating well. On RA today, without any chest pain or shortness of breath. VSS. Afebrile. Culture showing pseudomonas. Physical Exam Vital signs: Vital Signs 07/01/18 12:00 07/01/18 16:00 07/01/18 20:00 Temperature 97.6 F 100.1 F H 100.6 F H Pulse Rate 81 85 87 Respiratory Rate 19 19 20 Blood Pressure 144/68 H 152/71 H 129/81 Pulse Oximetry 92 L 93 L 93 L 07/01/18 20:18 07/02/18 00:00 07/02/18 08:00 Temperature 96.7 F L 97.6 F Pulse Rate 61 74 Respiratory Rate 21 18 Blood Pressure 125/66 114/67 Pulse Oximetry 94 L 96 93 L 07/02/18 09:55 Temperature Pulse Rate Respiratory Rate Blood Pressure Pulse Oximetry 95 Intake & Output 07/01/18 07/02/18 07/02/18 18:59 06:59 18:59 Intake Total 2210 / 2210 220 / 220 Output Total 800 / 800 500 / 500 Balance 1410 / 1410 -280 / -280 Weight 95.2 kg Intake: IV 1250 / 1250 100 / 100 NS Inj 1,000 ML @ 42 mls/hr IV. 900 / 900 CONT .[id number] [facility] Rx#: [id number] Zosyn 3.375 GM Premix 50 ML @ 100 / 100 100 / 100 100 mls/hr IV.SIG Q6H [facility] Rx#: [id number] Vancomycin Inj 1,000 MG In NS 250 / 250 Inj 250 ML @ 250 mls/hr IV.SIG Q24H [facility] Rx#:[id number] Oral 960 / 960 120 / 120 Output: Urine 800 / 800 500 / 500 Other: # Bowel Movements 1 Narrative: GENERAL: Well-developed, well-nourished patient in [facility]. SKIN: Warm and dry. No rash. HEAD: Normocephalic. Atraumatic. EYES: Pupils equal and round. No scleral icterus. No injection or drainage. ENT: No nasal bleeding or discharge. Mucous membranes pink and moist. NECK: Supple. Trachea midline. CARDIOVASCULAR: Regular rate and rhythm. S1, S2 noted. No murmur appreciated. RESPIRATORY: No accessory muscle use. Clear to auscultation. Breath sounds equal bilaterally. GASTROINTESTINAL: Abdomen soft, non-tender, nondistended. Normoactive bowel sounds x4. MUSCULOSKELETAL: No obvious deformities. Extremities without clubbing, cyanosis , or edema. NEUROLOGICAL: Awake and alert. No obvious cranial nerve deficits. Motor grossly within normal limits. 5/5 muscle strength in bilateral upper and lower extremities. Normal speech. PSYCHIATRIC: Appropriate mood and affect; insight and judgment normal. Results - Labs CBC & Chem 7: 07/01/18 05:10 07/02/18 08:30 Laboratory Results - last 24 hr 06/30/18 07/02/18 12:05 08:30 Sodium 137 Potassium 3.1 L Chloride 103 Carbon Dioxide 26.4 Anion Gap 8 BUN 17 Creatinine 1.30 Estimated GFR 52 L Random Glucose 113 H Calcium 8.0 L Urine Color Yellow Urine Clarity Clear Urine pH 7.5 Ur Specific Aragon 1.010 Urine Protein Trace Urine Glucose (UA) Negative Urine Ketones Negative Urine Occult Blood Small H Urine Nitrate Positive H Urine Bilirubin Negative Urine Urobilinogen 0.2 Ur Leukocyte Esterase Moderate H Urine RBC 0-3 Urine WBC 9-20 H Urine WBC Clumps Few H Micro UA Comment Culture indicated Ur Microscopic Review Microscopic reviewed Urine Culture Comments Culture indicated Microbiology 06/30/18 12:05 Clean Catch Urine Urine Culture - Final Pseudomonas aeruginosa 06/30/18 10:15 Blood - Peripheral Aerobic Blood Culture - Preliminary No growth in 1 day 06/30/18 10:15 Blood - Peripheral Anaerobic Blood Culture - Preliminary No growth in 1 day 06/30/18 10:20 Blood - Peripheral Aerobic Blood Culture - Preliminary No growth in 1 day 06/30/18 10:20 Blood - Peripheral Anaerobic Blood Culture - Preliminary No growth in 1 day Assessment and Plan - Assessment (1) Acute UTI Code(s): N39.0 - Urinary tract infection, site not specified Status: Acute (2) Generalized weakness Code(s): R53.1 - Weakness Status: Acute - Plan This is an 87-year-old male patient with: Urinary tract infection Leukocytosis, improving. History of BPH history of frequent UTIs -Patient presented with dysuria and frequency. UA showing white blood cells and leukocyte esterase. Urine culture showing pseudomonas. -Initially presented with SIRS with white blood cell 11,000. Tachycardic. Fever 100.6. Lactic acid normal. Leukocytosis, tachycardia and fever improved. Suspected source urinary tract. -Follows up with Dr. Eugene. Has underwent a recent cystoscopy and urodynamic study last Wednesday. -Patient was started on vancomycin and IV Zosyn. Culture showing pseudomonas. Will change IV antibiotics to PO Levaquin. DC IVF, tolerating PO intake well. Monitor for overload. BNP normal. -Blood cultures negative to date. -Supportive care. Hypertension, chronic Continue home medications. Monitor blood pressure trends. DVT prophylaxis: SCDs. Discharge Planning: Patient will benefit for 1 more day of monitoring and antibiotics before discharge.
[2018-07-02] MEDS ORDERED: levoFLOXacin 750 MG Tablet PO SCH (12:00)
[2018-07-02] MEDS: Piperacil/Tazo 3.375 GM Premix 3.375 GM/50 ML PIGGYBACK IV.SIG SCH ×2 (16:24→22:32)
--- NOTE | 2018-07-02 17:32 | P.CONID ---
History of Present Illness Service: Infectious Disease Consult date: 07/02/18 Requesting Physician: Natalya Lopez Reason for Consult: Bacteremia, Pseudomonas UTI Primary Care Provider: Gerson Payne MD Chief Complaint: Generalized weakness and urinary complaints History of Present Illness: 87/M with h/o BPH and TURP - had a cystoscopy with Urodynamic study a week ago and came into hospital now with shaking chills and rigors and was found to have a UTI . Now Blood cultures are growing a GNR and Urine culture grew Pseudomonas. Patient is on Zosyn and feels better now. He has had 5 episodes of severe UTI or sepsis in the last 1 1/2 years . Review of Systems Constitutional: Reports body ache(s), Reports chills, Reports fatigue, Reports fever(s), Denies night sweats Eyes: Denies blurry vision, Denies change in vision, Denies double vision Ears, Nose, Mouth, and Throat: Denies bad breath, Denies difficulty swallowing, Denies headache(s), Denies nasal obstruction Cardiovascular: Denies chest pain, Denies chest pain at rest, Denies chest pain with activity Respiratory: Denies change in phlegm color, Denies chest congestion, Denies cough, Denies coughing up blood Gastrointestinal: Denies abdominal pain, Denies change in stools, Denies difficulty swallowing, Denies heartburn Genitourinary: Reports frequent nighttime urination, Reports urinary frequency, Reports urinary incontinence, Reports urinary urgency, Denies blood in urine Musculoskeletal: Denies abnormal walking, Denies back pain Skin/Breast: Denies bleeding lesions, Denies boil Neurologic: Denies abnormal movements, Denies abnormal speech, Denies frequent falls, Denies loss of vision, Denies memory loss Psychiatric: Denies abnormal sleep pattern, Denies anxiety, Denies behavioral changes Endocrine: Denies cold intolerance, Denies increased thirst Hematologic/Lymphatic: Denies easy bleeding, Denies easy bruising Allergic/Immunologic: Denies GI upset with certain foods, Denies hives PMFSH - History History Provided By: Patient - Medical History Medical History: Medical History (Last Reviewed 07/01/18 @ 07:27 by Yong Javier) Arthritis Elevated cholesterol UTI (urinary tract infection) BPH (benign prostatic hyperplasia) Cheek injury Degenerative disc disease Deviated septum GERD (gastroesophageal reflux disease) Gout Head injury History of frequent urinary tract infections Hypertension Obstructive sleep apnea on CPAP Pacemaker Syncope - Surgical History Surgical History: Surgical History (Last Reviewed 07/01/18 @ 07:27 by Yong Javier) History of bladder surgery History of facial surgery History of nasal surgery S/P wrist surgery Hx of joint replacement S/P TURP - Family History Family History: Family History (Last Reviewed 06/30/18 @ 13:21 by Natalya Lopez) Other No pertinent family history - Tobacco History Second Hand Smoke Exposure: No Tobacco Use In Past 30 Days: No Smoking Status: Former smoker Tobacco Type: Pipe - Alcohol History How Often Do You Have a Drink Containing Alcohol: 2 to 3 times a week - Substance Use History Substance History: No History of Abuse - Travel History Recent Travel in the [place] Within the Last 8 Weeks: No - Immunization History Tetanus Immunization: <5 Years Tetanus Immunization Year if Known: 2017 Hx Influenza Vaccine This Season: Yes Medications and Allergies Active Medications: Active Medications Acetaminophen (Tylenol) 650 mg PO Q4H PRN PRN Reason: TEMP>101F, PAIN 1-10, HEADACHE Last Admin: 07/01/18 21:37 Dose: 650 mg Al Hydroxide/Mg Hydroxide (Milk Of Ethan Mccarty) 30 ml PO Q12H PRN PRN Reason: Mild Constipation Allopurinol (Zyloprim) 300 mg PO DAILY [facility] Last Admin: 07/02/18 09:18 Dose: 300 mg Amlodipine Besylate (Norvasc) 5 mg PO DAILY [facility] Last Admin: 07/02/18 09:18 Dose: 5 mg Aspirin (Ecotrin) 81 mg PO DAILY [facility] Last Admin: 07/02/18 09:19 Dose: 81 mg Bisacodyl (Dulcolax Supp) 10 mg RECTAL DAILY PRN PRN Reason: SEVERE CONSITIPATION Ciprofloxacin HCl (Cipro) 500 mg PO Q12HR [facility] Diphenhydramine HCl (Benadryl) 25 mg PO HS PRN PRN Reason: INSOMNIA Last Admin: 07/01/18 21:37 Dose: 25 mg Heparin Sodium (Porcine) (Heparin Inj) 5,000 units SQ Q12HR [facility] Last Admin: 07/02/18 09:18 Dose: 5,000 units Piperacillin/Tazobactam/Dextrose (Zosyn 3.375 Gm Premix) 3.375 gm in 50 mls @ 200 mls/hr IV.SIG Q6H [facility] Last Admin: 07/02/18 16:24 Dose: 200 mls/hr Lactulose (Lactulose Liq) 30 ml PO DAILY PRN PRN Reason: SEVERE CONSITIPATION Ondansetron HCl (Zofran Inj) 4 mg IV.PUSH Q6H PRN PRN Reason: NAUSEA OR VOMITING Sennosides (Senokot) 17.2 mg PO Q12H PRN PRN Reason: Moderate Constipation Sodium Chloride (Ns Flush) 2 ml IV.FLUSH BID [facility] Last Admin: 07/02/18 09:19 Dose: Not Given Sodium Chloride (Ns Flush) 2 ml IV.FLUSH PRN PRN PRN Reason: FLUSH AFTER USING IV ACCESS Tamsulosin HCl (Flomax) 0.8 mg PO DAILY [facility] Last Admin: 07/02/18 09:18 Dose: 0.8 mg Allergies Allergy/AdvReac Type Severity Reaction Status Date / Time monosodium glutamate AdvReac Severe Nausea/Vomi Verified 06/30/18 09:10 ting Home Medications Medication Instructions Recorded Confirmed Type allopurinol 300 mg PO DAILY 02/03/18 06/30/18 History ascorbic acid (vitamin C) 100 mg PO DAILY 02/03/18 06/30/18 History aspirin [Aspir-81] 81 mg PO DAILY 02/03/18 06/30/18 History cyanocobalamin (vitamin B-12) 5,000 mcg PO DAILY 03/09/18 06/30/18 History esomeprazole magnesium 40 mg PO DAILY 03/09/18 06/30/18 History amlodipine 5 mg PO DAILY 03/28/18 06/30/18 History cholecalciferol (vitamin D3) 2,000 unit PO DAILY 03/28/18 06/30/18 History [Vitamin D3] cefuroxime axetil 500 mg PO Q12H 06/30/18 06/30/18 History tamsulosin [Flomax] 0.8 mg PO DAILY 06/30/18 06/30/18 History Exam Vital signs: Vital Signs 07/01/18 20:00 07/01/18 20:18 07/02/18 00:00 Temperature 100.6 F H 96.7 F L Pulse Rate 87 61 Respiratory Rate 20 21 Blood Pressure 129/81 125/66 Pulse Oximetry 93 L 94 L 96 07/02/18 08:00 07/02/18 09:55 07/02/18 11:55 Temperature 97.6 F Pulse Rate 74 Respiratory Rate 18 Blood Pressure 114/67 Pulse Oximetry 93 L 95 94 L 07/02/18 12:00 Temperature 97.0 F L Pulse Rate 71 Respiratory Rate 17 Blood Pressure 133/68 Pulse Oximetry 96 Intake & Output 07/01/18 07/02/18 07/02/18 18:59 06:59 18:59 Intake Total 2210 / 2210 220 / 220 400 / 400 Output Total 800 / 800 500 / 500 Balance 1410 / 1410 -280 / -280 400 / 400 Weight 95.2 kg Intake: IV 1250 / 1250 100 / 100 400 / 400 NS Inj 1,000 ML @ 42 mls/hr IV. 900 / 900 400 / 400 CONT .[id number] [facility] Rx#: [id number] Zosyn 3.375 GM Premix 50 ML @ 100 / 100 100 / 100 100 mls/hr IV.SIG Q6H [facility] Rx#: [id number] Vancomycin Inj 1,000 MG In NS 250 / 250 Inj 250 ML @ 250 mls/hr IV.SIG Q24H [facility] Rx#:[id number] Oral 960 / 960 120 / 120 Output: Urine 800 / 800 500 / 500 Other: # Bowel Movements 1 - Constitutional no acute distress, cooperative - Routine HEENT Exam Head: Present: normocephalic, atraumatic. Absent: tenderness of temporal artery Eye: Present: EOMI. Absent: conjunctival icterus, periorbital tenderness ENT: Present: mucous membranes moist, oropharynx clear - Routine Neck Exam Present: supple, full ROM. Absent: carotid bruit - Routine Chest/Breast/Axilla Exam Chest wall: Absent: tenderness, mass - Routine Respiratory Exam Present: CTA bilaterally. Absent: accessory muscle use, rhonchi, wheezes - Routine Cardiovascular Exam Present: RRR, S1, S2. Absent: murmur - Routine Abdominal Exam Present: soft, normoactive bowel sounds. Absent: tenderness, distended - Routine Extremities Exam Present: full ROM. Absent: cyanosis, clubbing, edema - Routine Skin Exam Present: intact. Absent: cyanosis, erythema, dry - Routine Neurological Exam Present: alert, oriented X3, CN II-XII intact, moving all extremities. Absent: motor deficit, altered mental status Results - Labs CBC & Chem 7: 07/01/18 05:10 07/02/18 08:30 Labs: Laboratory Results - last 24 hr 07/02/18 08:30 Sodium 137 Potassium 3.1 L Chloride 103 Carbon Dioxide 26.4 Anion Gap 8 BUN 17 Creatinine 1.30 Estimated GFR 52 L Random Glucose 113 H Calcium 8.0 L Assessment and Plan (1) Gram negative septicemia Status: Acute Code(s): A41.50 - Gram-negative sepsis, unspecified (2) Pseudomonas urinary tract infection Status: Acute Code(s): N39.0 - Urinary tract infection, site not specified; B96.5 - Pseudomonas (aeruginosa) (mallei) (pseudomallei) as the cause of diseases classified elsewhere (3) Sepsis Status: Acute Code(s): A41.9 - Sepsis, unspecified organism - Plan 1. Follow Blood cultures 2. Urine culture with pans sensitive Pseudomonas 3. Continue IV Zosyn 4. Add PO Cipro 5. Re check blood and urine cultures to make sure he is clearing infection (3) Sepsis Qualifiers: Sepsis type: sepsis due to unspecified organism Qualified Code(s): A41.9 - Sepsis, unspecified organism
[2018-07-02] MEDS: Ciprofloxacin 500 MG Tablet PO SCH (22:32)
[2018-07-03] MEDS: Piperacil/Tazo 3.375 GM Premix 3.375 GM/50 ML PIGGYBACK IV.SIG SCH ×4 (06:07→21:38)
[2018-07-03 07:50] LABS: Baso % (Auto) 0.5 % (0.0-2.0); Eos # (Auto) 0.2 th/mm3 (0.0-0.4); Eos % (Auto) 4.3 % (0.0-4.0); Hematocrit 36.2 % (39.0-51.0); Lymph # (Auto) 0.6 th/mm3 (1.0-4.8); Lymph % (Auto) 16.4 % (9.0-44.0); Mean Corpuscular HGB Conc 33.2 % (32.0-36.0); Mean Corpuscular Hemoglobin 33.7 pg (27.0-34.0); Mean Corpuscular Volume 101.4 fL (80.0-100.0); Mean Platelet Volume 7.7 fL (7.0-11.0); Mono # (Auto) 0.5 th/mm3 (0.0-0.9); Mono % (Auto) 11.5 % (0.0-8.0); Neut # (Auto) 2.6 th/mm3 (1.8-7.7); Neut % (Auto) 67.3 % (16.0-70.0); Platelet Count 127 th/mm3 (150-450); Red Blood Count 3.57 mil/mm3 (4.50-5.90); Red Cell Distribution Width 13.2 % (11.6-17.2); White Blood Count 3.9 th/mm3 (4.0-11.0)
[2018-07-03] MEDS: Heparin - SQ 10,000 UNITS/ML Vial SQ SCH ×2 (08:03→21:36)
[2018-07-03] MEDS: Ciprofloxacin 500 MG Tablet PO SCH ×2 (08:03→21:35)
[2018-07-03] MEDS: amLODIPine 5 MG Tablet PO SCH (08:03)
[2018-07-03] MEDS: Allopurinol 300 MG Tablet PO SCH (08:03)
[2018-07-03 08:09] LABS: Potassium 3.6 meq/L (3.5-5.1)
[2018-07-03 08:13] LABS: Calcium 7.9 mg/dL (8.5-10.1); Carbon Dioxide 24.7 meq/L (21.0-32.0)
--- NOTE | 2018-07-03 08:28 | P.PNID ---
Subjective Remarks: ID FU DR MCGILL AWAKE NO FEVER DID HAVE SOME HESTIANCY GOING TO BR THIS AM BUT BETTER OVERALL SINCE ADMISSION Allergies/Adverse Reactions: Allergies monosodium glutamate Adverse Reaction (Severe, Verified 06/30/18 09:10) Nausea/Vomiting Objective Vital Signs 07/02/18 09:55 07/02/18 11:55 07/02/18 12:00 Temperature 97.0 F L Pulse Rate 71 Respiratory Rate 17 Blood Pressure 133/68 Pulse Oximetry 95 94 L 96 07/02/18 16:00 07/02/18 20:00 07/03/18 00:00 Temperature 97.2 F L 96.6 F L 96.8 F L Pulse Rate 74 73 71 Respiratory Rate 17 17 21 Blood Pressure 137/73 148/74 H 145/82 H Pulse Oximetry 95 94 L 96 07/03/18 07:47 Temperature Pulse Rate Respiratory Rate Blood Pressure Pulse Oximetry 94 L Intake & Output 07/02/18 07/03/18 07/03/18 18:59 06:59 18:59 Intake Total 570 / 570 100 / 100 Balance 570 / 570 100 / 100 Intake: IV 450 / 450 100 / 100 NS Inj 1,000 ML @ 42 mls/hr IV. 400 / 400 CONT .[id number] [facility] Rx#: [id number] Zosyn 3.375 GM Premix 3.375 gm 50 / 50 100 / 100 In 50 ml @ 200 mls/hr IV.SIG Q6H [facility] Rx#:[id number] Oral 120 / 120 07/02/18 16:10 Blood - Peripheral Aerobic Blood Culture - Pending 07/02/18 16:10 Blood - Peripheral Anaerobic Blood Culture - Pending 07/02/18 16:01 Blood - Peripheral Aerobic Blood Culture - Pending 07/02/18 16:01 Blood - Peripheral Anaerobic Blood Culture - Pending 06/30/18 10:15 Blood - Peripheral Aerobic Blood Culture - Preliminary gram negative rods 06/30/18 10:15 Blood - Peripheral Anaerobic Blood Culture - Preliminary No growth in 2 days 06/30/18 10:20 Blood - Peripheral Aerobic Blood Culture - Preliminary No growth in 2 days 06/30/18 10:20 Blood - Peripheral Anaerobic Blood Culture - Preliminary No growth in 2 days 06/30/18 12:05 Clean Catch Urine Urine Culture - Final Pseudomonas aeruginosa 06/30/18 10:40 Nasal Wash Influenza Types A,B Antigen - Final Negative for FLU A and B antigen Infection due to influenza A or B cannot be ruled out since the antigen present in the sample may be below the detection limit of the test. Lab - Hematology Results 07/03/18 07:30 CBC w Diff Auto diff final WBC 3.9 L RBC 3.57 L Hgb 12.0 L Hct 36.2 L MCV 101.4 H MCH 33.7 MCHC 33.2 RDW 13.2 Plt Count 127 L MPV 7.7 Neut % (Auto) 67.3 Lymph % (Auto) 16.4 [place] % (Auto) 11.5 H Eos % (Auto) 4.3 H Baso % (Auto) 0.5 Neut # (Auto) 2.6 Lymph # (Auto) 0.6 L [place] # (Auto) 0.5 Eos # (Auto) 0.2 Baso # (Auto) 0.0 WBC Differential . Differential Comment . Lab - Chemistry Results 07/02/18 07/03/18 08:30 07:30 Sodium 137 138 Potassium 3.1 L 3.6 Chloride 103 105 Carbon Dioxide 26.4 24.7 Anion Gap 8 8 BUN 17 17 Creatinine 1.30 1.10 Estimated GFR 52 L 64 L Random Glucose 113 H 111 H Calcium 8.0 L 7.9 L Imaging: ITS Impressions Chest X-Ray 06/30/18 09:50 CONCLUSION: Stable chest without evidence of acute process. COPD Head CT 06/30/18 11:07 CONCLUSION: 1. Negative noncontrast head CT. . Chest CTA 06/30/18 18:38 CONCLUSION: 1. No CT evidence for pulmonary artery embolism as questioned. 2. 8 mm right upper lobe nodule. This was previously more in a tree-in-bud appearance and may reflect resolving infectious/inflammatory process. Consider follow-up CT examination in 6-12 months to document stability as clinically appropriate. 3. Stable right middle lobe scarring. 4. New linear parenchymal opacities at the lung bases most consistent with atelectasis. Differential considerations include chronic aspiration. 5. Coronary artery calcifications. Physical Exam: AWAKE , NAD PERRL NS CHEST: LUNGS EQUAL DECREASED CARDIAC: S1S2 SINUS ABDOMEN: SOFT ACTIVE EXT: Assessment and Plan - Plan 1. Follow Blood cultures 1 + GNR 2. Urine culture with pans sensitive Pseudomonas 3. Continue IV Zosyn 4. Continue Cipro 5. Re check blood and urine cultures to make sure he is clearing infection
--- NOTE | 2018-07-03 11:35 | P.PNIM ---
Subjective Interval history: Follow-up bacteremia UTI. Patient seen and examined, sitting in chair comfortably eating lunch. No apparent distress. On room air. No chest pain or shortness of breath. Infectious disease consulted and input appreciated. Added Cipro. Awaiting blood culture redraw, negative to date times 1 day. Vital signs stable. Afebrile. Ambulating well throughout halls. Physical Exam Vital signs: Vital Signs 07/02/18 11:55 07/02/18 12:00 07/02/18 16:00 Temperature 97.0 F L 97.2 F L Pulse Rate 71 74 Respiratory Rate 17 17 Blood Pressure 133/68 137/73 Pulse Oximetry 94 L 96 95 07/02/18 20:00 07/03/18 00:00 07/03/18 07:47 Temperature 96.6 F L 96.8 F L Pulse Rate 73 71 Respiratory Rate 17 21 Blood Pressure 148/74 H 145/82 H Pulse Oximetry 94 L 96 94 L 07/03/18 08:00 Temperature 97.8 F Pulse Rate 64 Respiratory Rate 18 Blood Pressure 141/78 H Pulse Oximetry 95 Intake & Output 07/02/18 07/03/18 07/03/18 18:59 06:59 18:59 Intake Total 570 / 570 220 / 220 50 / 50 Balance 570 / 570 220 / 220 50 / 50 Intake: IV 450 / 450 100 / 100 50 / 50 NS Inj 1,000 ML @ 42 mls/hr IV. 400 / 400 CONT .[id number] [facility] Rx#: [id number] Zosyn 3.375 GM Premix 3.375 gm 50 / 50 100 / 100 50 / 50 In 50 ml @ 200 mls/hr IV.SIG Q6H [facility] Rx#:[id number] Oral 120 / 120 120 / 120 Narrative: GENERAL: Well-developed, well-nourished patient in [facility]. SKIN: Warm and dry. No rash. HEAD: Normocephalic. Atraumatic. EYES: Pupils equal and round. No scleral icterus. No injection or drainage. ENT: No nasal bleeding or discharge. Mucous membranes pink and moist. NECK: Supple. Trachea midline. CARDIOVASCULAR: Regular rate and rhythm. S1, S2 noted. No murmur appreciated. RESPIRATORY: No accessory muscle use. Clear to auscultation. Breath sounds equal bilaterally. GASTROINTESTINAL: Abdomen soft, non-tender, nondistended. Normoactive bowel sounds x4. MUSCULOSKELETAL: No obvious deformities. Extremities without clubbing, cyanosis , or edema. NEUROLOGICAL: Awake and alert. No obvious cranial nerve deficits. Motor grossly within normal limits. 5/5 muscle strength in bilateral upper and lower extremities. Normal speech. PSYCHIATRIC: Appropriate mood and affect; insight and judgment normal. Results - Labs CBC & Chem 7: 07/03/18 07:30 07/03/18 07:30 Laboratory Results - last 24 hr 07/03/18 07/03/18 07:30 07:30 CBC w Diff Auto diff final WBC 3.9 L RBC 3.57 L Hgb 12.0 L Hct 36.2 L MCV 101.4 H MCH 33.7 MCHC 33.2 RDW 13.2 Plt Count 127 L MPV 7.7 Neut % (Auto) 67.3 Lymph % (Auto) 16.4 [place] % (Auto) 11.5 H Eos % (Auto) 4.3 H Baso % (Auto) 0.5 Neut # (Auto) 2.6 Lymph # (Auto) 0.6 L [place] # (Auto) 0.5 Eos # (Auto) 0.2 Baso # (Auto) 0.0 WBC Differential . Differential Comment . Sodium 138 Potassium 3.6 Chloride 105 Carbon Dioxide 24.7 Anion Gap 8 BUN 17 Creatinine 1.10 Estimated GFR 64 L Random Glucose 111 H Calcium 7.9 L Microbiology 06/30/18 10:15 Blood - Peripheral Aerobic Blood Culture - Preliminary Pseudomonas species 06/30/18 10:15 Blood - Peripheral Anaerobic Blood Culture - Preliminary No growth in 3 days 07/02/18 16:10 Blood - Peripheral Aerobic Blood Culture - Preliminary No growth in 1 day 07/02/18 16:10 Blood - Peripheral Anaerobic Blood Culture - Preliminary No growth in 1 day 07/02/18 16:01 Blood - Peripheral Aerobic Blood Culture - Preliminary No growth in 1 day 07/02/18 16:01 Blood - Peripheral Anaerobic Blood Culture - Preliminary No growth in 1 day 06/30/18 10:20 Blood - Peripheral Aerobic Blood Culture - Preliminary No growth in 3 days 06/30/18 10:20 Blood - Peripheral Anaerobic Blood Culture - Preliminary No growth in 3 days 06/30/18 12:05 Clean Catch Urine Urine Culture - Final Pseudomonas aeruginosa Assessment and Plan - Assessment (1) Acute UTI Code(s): N39.0 - Urinary tract infection, site not specified Status: Acute (2) Generalized weakness Code(s): R53.1 - Weakness Status: Acute - Plan This is an 87-year-old male patient with: Bacteremia secondary to UTI with Pseudomonas History of BPH history of frequent UTIs -Patient presented with dysuria and frequency. UA showing white blood cells and leukocyte esterase. Urine culture showing pseudomonas. -Initially presented with SIRS with white blood cell 11,000. Tachycardic. Fever 100.6. Lactic acid normal. Leukocytosis, tachycardia and fever improved. Source urinary tract. -Follows up with Dr. Eugene. Has underwent a recent cystoscopy and urodynamic study last Wednesday. -Patient was started on vancomycin and IV Zosyn. Culture showing pseudomonas. Continue IV Zosyn. Added Cipro per infectious disease. -Blood cultures showing Pseudomonas growth x1 bottle. Repeat blood cultures negative x 1 day. Continue to follow. -Await clinical improvement and blood culture results. -Supportive care. Hypertension, chronic Continue home medications. Monitor blood pressure trends. DVT prophylaxis: SCDs. Discharge Planning: Await clinical improvement. Infectious disease following. Await culture growth.
[2018-07-03 14:24] LABS: Bilirubin,Urine Negative (Negative); Clarity,Urine Clear (Clear); Color,Urine Yellow (Yellw/Straw); Glucose,Urine (UA) Negative (Negative); Leukocyte Esterase,Urine Negative (Negative); Nitrite,Urine Negative (Negative); Urobilinogen,Urine 0.2 mg/dL (Less than 2)
[2018-07-03 15:53] LABS: RBC,Urine 0-3 /hpf (0-3); Squamous Epithelial Cell,Urine 0-5 /hpf (0-5); WBC,Urine 0-5 /hpf (0-5)
[2018-07-04] MEDS: Piperacil/Tazo 3.375 GM Premix 3.375 GM/50 ML PIGGYBACK IV.SIG SCH ×2 (04:03→09:38)
[2018-07-04 05:57] LABS: Baso % (Auto) 0.5 % (0.0-2.0); Eos # (Auto) 0.2 th/mm3 (0.0-0.4); Eos % (Auto) 5.5 % (0.0-4.0); Hematocrit 36.8 % (39.0-51.0); Hemoglobin 12.3 gm/dL (13.0-17.0); Lymph # (Auto) 0.8 th/mm3 (1.0-4.8); Lymph % (Auto) 20.4 % (9.0-44.0); Mean Corpuscular HGB Conc 33.4 % (32.0-36.0); Mean Corpuscular Hemoglobin 33.5 pg (27.0-34.0); Mean Corpuscular Volume 100.4 fL (80.0-100.0); Mean Platelet Volume 7.4 fL (7.0-11.0); Mono # (Auto) 0.6 th/mm3 (0.0-0.9); Neut # (Auto) 2.5 th/mm3 (1.8-7.7); Neut % (Auto) 59.6 % (16.0-70.0); Platelet Count 143 th/mm3 (150-450); Red Blood Count 3.67 mil/mm3 (4.50-5.90); Red Cell Distribution Width 13.2 % (11.6-17.2); White Blood Count 4.1 th/mm3 (4.0-11.0)
[2018-07-04] MEDS: amLODIPine 5 MG Tablet PO SCH (08:21)
[2018-07-04] MEDS: Ciprofloxacin 500 MG Tablet PO SCH (08:22)
[2018-07-04] MEDS: Allopurinol 300 MG Tablet PO SCH (08:22)
[2018-07-04] MEDS: Heparin - SQ 10,000 UNITS/ML Vial SQ SCH (08:24)
--- NOTE | 2018-07-04 10:37 | P.DS ---
Date of admission: 07/02/18 18:53 Primary care physician: Gerson Payne MD Anticipated date of discharge: 07/04/18 Brief History from admission: This is an 87-year-old male patient with a known medical history of hypertension , frequent UTIs who presented to the ED with complaints of generalized weakness , chills and urinary frequency and burning. Patient states that since last Wednesday after seeing Dr. Abarca office and undergoing a urodynamic study as well as a cystoscopy that he developed urinary frequency as well as burning and this morning he woke up feeling feverish as well as chills and generalized weakness. He states that he has been unable to get out of the chair. At baseline he uses a walker and was unable to even ambulate this morning. Lives at home with his and is able to perform all ADLs per self. Patient does have a history of frequent urinary tract infections, has had sepsis in the past and 4 hospitalizations this year for urinary tract infection. Patient denies any recent antibiotic use. Denies any recent nausea, vomiting or diarrhea. At the time of assessment patient is lying in bed with apparent chills and rigors. White blood cell 11,000, tachycardic. Abnormal UA. Will be admitted for IV antibiotics and sepsis workup. Patient update on day of discharge: Patient seen and examined, lying in bed comfortably in nad. Doing much improved. Breathing comfortably. Denies any chest pain or shortness of breath. Eating well without any nausea and vomiting. Awaiting cultures and further ID recs. Possible DC home later today. DS: Diagnosis - Discharge Diagnosis (1) Acute UTI Status: Acute (2) Generalized weakness Status: Acute DS: Medications - Discharge Medications Prescriptions: ciprofloxacin HCl [Cipro] 500 mg PO Q12H 10 Days #20 tab DS: Summary Hospital Course: This is an 87-year-old male patient who presented to the ED with bacteremia secondary to UTI with Pseudomonas, does have a history of BPH history of frequent UTIs. Patient presented with dysuria and frequency. UA showing white blood cells and leukocyte esterase. Urine culture showing pseudomonas. Initially presented with SIRS with white blood cell 11,000. Tachycardic. Fever 100.6. Lactic acid normal. Leukocytosis, tachycardia and fever improved. Source urinary tract. Follows up with Dr. Eugene. Has underwent a recent cystoscopy and urodynamic study last Wednesday. Patient was started on vancomycin and IV Zosyn. Culture showing pseudomonas. Continued IV Zosyn. Added Cipro per infectious disease. Blood cultures showing Pseudomonas growth x1 bottle. Repeat blood cultures negative to date on day of discharge. Repeat UA negative. Patient also has a history of hypertension, was continued on home medications. Stable on day of DC. RX as written. Diet as tolerated. Activity as tolerated. Follow up PCP. Continue on Cipro 500 mg x 10 days. Follow up ID. - Time Spent with Patient Total time spent providing and/or coordinating discharge services: Greater than 30 minutes - Quality: VTE Deep Vein Thrombosis/Pulmonary Embolism Present on Admission: No Exam Vital signs: Vital Signs 07/03/18 12:00 07/03/18 16:00 07/03/18 20:00 Temperature 98.1 F 97 F L Pulse Rate 70 70 68 Respiratory Rate 20 17 18 Blood Pressure 132/67 151/77 H 139/79 Pulse Oximetry 96 95 97 07/03/18 22:11 07/04/18 00:00 07/04/18 08:00 Temperature 98.7 F 96.4 F L Pulse Rate 69 68 Respiratory Rate 18 18 Blood Pressure 126/72 141/82 H Pulse Oximetry 96 95 96 07/04/18 08:04 Temperature Pulse Rate Respiratory Rate Blood Pressure Pulse Oximetry 94 L Intake & Output 07/03/18 07/04/18 07/04/18 18:59 06:59 18:59 Intake Total 340 / 340 190 / 190 50 / 50 Output Total 1999 Balance 340 / 340 -1810 / -1810 50 / 50 Weight 94.4 kg Intake: IV 100 / 100 100 / 100 50 / 50 Zosyn 3.375 GM Premix 3.375 gm 100 / 100 100 / 100 50 / 50 In 50 ml @ 200 mls/hr IV.SIG Q6H [facility] Rx#:[id number] Oral 240 / 240 90 / 90 Output: Urine 1999 Narrative: GENERAL: Well-developed, well-nourished patient in [facility]. SKIN: Warm and dry. No rash. HEAD: Normocephalic. Atraumatic. EYES: Pupils equal and round. No scleral icterus. No injection or drainage. ENT: No nasal bleeding or discharge. Mucous membranes pink and moist. NECK: Supple. Trachea midline. CARDIOVASCULAR: Regular rate and rhythm. S1, S2 noted. No murmur appreciated. RESPIRATORY: No accessory muscle use. Clear to auscultation. Breath sounds equal bilaterally. GASTROINTESTINAL: Abdomen soft, non-tender, nondistended. Normoactive bowel sounds x4. MUSCULOSKELETAL: No obvious deformities. Extremities without clubbing, cyanosis , or edema. NEUROLOGICAL: Awake and alert. No obvious cranial nerve deficits. Motor grossly within normal limits. 5/5 muscle strength in bilateral upper and lower extremities. Normal speech. PSYCHIATRIC: Appropriate mood and affect; insight and judgment normal. Results Procedures completed during hospitalization: See above. Labs on day of discharge: Labs from last 24 hours 07/04/18 07/03/18 05:20 13:50 CBC w Diff Auto diff final WBC 4.1 RBC 3.67 L Hgb 12.3 L Hct 36.8 L MCV 100.4 H MCH 33.5 MCHC 33.4 RDW 13.2 Plt Count 143 L MPV 7.4 Neut % (Auto) 59.6 Lymph % (Auto) 20.4 Davis % (Auto) 14.0 H Eos % (Auto) 5.5 H Baso % (Auto) 0.5 Neut # (Auto) 2.5 Lymph # (Auto) 0.8 L [place] # (Auto) 0.6 Eos # (Auto) 0.2 Baso # (Auto) 0.0 WBC Differential . Differential Comment . Ur Collection Type Clean catch Urine Color Yellow Urine Clarity Clear Urine pH 6.0 Ur Specific [place] 1.010 Urine Protein Trace Urine Glucose (UA) Negative Urine Ketones Negative Urine Occult Blood Trace Urine Nitrate Negative Urine Bilirubin Negative Urine Urobilinogen 0.2 Ur Leukocyte Esterase Negative Urine RBC 0-3 Urine WBC 0-5 Ur Squamous Epith Cells 0-5 Micro UA Comment Culture not ind Ur Microscopic Review Microscopic reviewed Urine Culture Comments Culture not ind Preliminary micro results at discharge 06/30/18 10:15 Anaerobic Blood Culture - Preliminary Blood - Peripheral No growth in 3 days 07/02/18 16:10 Aerobic Blood Culture - Preliminary Blood - Peripheral No growth in 1 day Anaerobic Blood Culture - Preliminary No growth in 1 day 07/02/18 16:01 Aerobic Blood Culture - Preliminary Blood - Peripheral No growth in 1 day Anaerobic Blood Culture - Preliminary No growth in 1 day 06/30/18 10:20 Aerobic Blood Culture - Preliminary Blood - Peripheral No growth in 3 days Anaerobic Blood Culture - Preliminary No growth in 3 days - Impressions ITS Impressions Chest X-Ray 06/30/18 09:50 CONCLUSION: Stable chest without evidence of acute process. COPD Head CT 06/30/18 11:07 CONCLUSION: 1. Negative noncontrast head CT. . Chest CTA 06/30/18 18:38 CONCLUSION: 1. No CT evidence for pulmonary artery embolism as questioned. 2. 8 mm right upper lobe nodule. This was previously more in a tree-in-bud appearance and may reflect resolving infectious/inflammatory process. Consider follow-up CT examination in 6-12 months to document stability as clinically appropriate. 3. Stable right middle lobe scarring. 4. New linear parenchymal opacities at the lung bases most consistent with atelectasis. Differential considerations include chronic aspiration. 5. Coronary artery calcifications. Discharge Plan - Discharge Disposition Patient Disposition: /Home Health Service - Discharge Condition Condition: Fair - Discharge Order Discharge Orders: Discharge Order (Routine); Ordered 07/04/18 Ordered By: Natalya Lopez - Discharge Details Anticipated Discharge Date: 07/04/18 - Physicians Team Primary Care Provider: Gerson Payne Attending Provider: Jose Fernandes Other Providers: Meg Monge MD
--- NOTE | 2018-07-04 10:39 | P.DCO ---
- Diagnosis (1) Acute UTI Status: Acute (2) Generalized weakness Status: Acute (3) Gram negative septicemia Status: Acute - Physical Therapy Order: Evaluate and treat, Improve ambulation, Strength and gait training - Home Health Nursing Order: Medical education, Signs/symptoms of disease process, Medication education-adverse effect, Nursing assessment with vital signs - Case Management Consult Case Management Consult-Home Health: Yes - Certification I have seen patient Jonatan Cam on 07/04/18. My clinical findings support the need for the requested home health care services because: Deconditioned with increased weakness I certify that my clinical findings support that this patient is homebound because: Unsteady gait/balance
== END 2018-07-04 15:33 | disposition home health service (06) ==
LOC: PHEDA 09:09 → PHED 09:09 → PHEDA 14:25 → PH3 15:31
PROVIDERS: ADMIT Hospitalist; ATTEND Hospitalist

== ENCOUNTER 2018-08-29 14:08 | Observation (INO) ==
--- NOTE | 2018-08-29 15:02 | ED ---
HPI General Chief complaint: Weakness Stated complaint: General Weakness this AM Hx of UTI's Time Seen by Provider: 08/29/18 14:48 History of Present Illness HPI Narrative: This patient complains of diffuse generalized weakness. Duration is 2 days. He had it yesterday but was worse this morning. Found it hard to get out of bed. He gets around with a walker in general. He has had a history of numerous UTIs in the past and they often leave him generalized weakness such as today. He does not have any specific urinary complaints but that is not unusual for him. He denies fever. Severity is moderate. No alleviating factors. No exacerbating factors. He has had runny nose and was coughing throughout the night. Is not short of breath or having any chest pain. Related Data Home Medications Medication Instructions Recorded Confirmed allopurinol 300 mg PO DAILY 02/03/18 08/29/18 ascorbic acid (vitamin C) 100 mg PO HS 02/03/18 08/29/18 aspirin [Aspir-81] 81 mg PO DAILY 02/03/18 08/29/18 cyanocobalamin (vitamin B-12) 5,000 mcg PO DAILY 03/09/18 08/29/18 esomeprazole magnesium 40 mg PO DAILY 03/09/18 08/29/18 amlodipine 5 mg PO DAILY 03/28/18 08/29/18 cholecalciferol (vitamin D3) 2,000 unit PO DAILY 03/28/18 08/29/18 [Vitamin D3] tamsulosin [Flomax] 0.8 mg PO HS 06/30/18 08/29/18 diphenhydramine-acetaminophen 2 tab PO HS PRN 08/29/18 08/29/18 [Tylenol PM Extra Strength] olmesartan 40 mg PO DAILY 08/29/18 08/29/18 Allergies Allergy/AdvReac Type Severity Reaction Status Date / Time monosodium glutamate AdvReac Severe Nausea/Vomi Verified 08/29/18 14:25 ting Review of Systems ROS: all other systems reviewed are negative COUNT INCLUDES [facility] Medical History Medical History Arthritis (Acute) BPH (benign prostatic hyperplasia) (Acute) Cheek injury (Acute) Degenerative disc disease (Acute) Deviated septum (Acute) Elevated cholesterol (Acute) GERD (gastroesophageal reflux disease) (Acute) Gout (Acute) Head injury (Acute) History of frequent urinary tract infections (Acute) Hypertension (Acute) Obstructive sleep apnea on CPAP (Acute) Pacemaker (Acute) Syncope (Acute) UTI (urinary tract infection) (Acute) Surgical History Surgical History History of bladder surgery (Acute) History of facial surgery (Acute) History of nasal surgery (Acute) Hx of joint replacement (Acute) S/P TURP (Acute) S/P wrist surgery (Acute) Family History Family History Other No pertinent family history Social History Social History Substance History: No History of Abuse Second Hand Smoke Exposure: No Smoking Status: Former smoker Tobacco Type: Pipe How Often Do You Have a Drink Containing Alcohol: 4 or more times a week Recent Travel in [facility] within the Last 8 Weeks: No Recent Out of Country Travel within the Last 8 Weeks: No Immunization History Tetanus Immunization: <5 Years Tetanus Immunization Year if Known: 2018 Exam Narrative Exam Narrative: GENERAL: Well-nourished, well-developed patient in no apparent distress. SKIN: Focused skin assessment reveals no rash and nodules. Skin is Warm and dry. HEAD: Atraumatic. Normocephalic. EYES: Pupils equal and round. No scleral icterus. No injection or drainage. ENT: No nasal bleeding or discharge. Mucous membranes pink and moist. NECK: Trachea midline. No JVD. No meningeal signs CARDIOVASCULAR: Regular rate and rhythm. No murmur appreciated. RESPIRATORY: No accessory muscle use. Clear to auscultation. Breath sounds equal bilaterally. GASTROINTESTINAL: Abdomen soft, non-tender, nondistended. Hepatic and splenic margins not palpable. MUSCULOSKELETAL: No obvious deformities. No clubbing. No cyanosis. No edema. NEUROLOGICAL: Awake and alert. No obvious cranial nerve deficits. Motor grossly within normal limits to neurologic testing. No asymmetry. Normal speech. PSYCHIATRIC: Appropriate mood and affect; insight and judgment normal. Course Initial Documented Vital Signs Temperature 98.8 F 08/29/18 14:20 Pulse Rate 93 H 08/29/18 14:20 Respiratory Rate 16 08/29/18 14:20 Blood Pressure 152/78 H 08/29/18 14:20 Pulse Oximetry 93 L 08/29/18 14:20 Last Documented Vital Signs Temperature 98.8 F 08/29/18 14:20 Pulse Rate 85 08/29/18 15:00 Respiratory Rate 16 08/29/18 15:00 Blood Pressure 152/78 H 08/29/18 14:20 Pulse Oximetry 99 08/29/18 15:00 Sign Out Sign Out Data: Patient Sign Out occurred on 08/29/18 at 16:46. Patient's care was discussed, and care was transferred from Mitch Ruano MD to Gris Gilmore MD. Sign Out Comment: Case checked out to the evening physician to assist with disposition Last updated by Mitch Ruano MD at 08/29/18 15:54 Post-Handoff Eval: Patient's laboratory work showed he was positive for influenza. His urine did not show any evidence of infection. CBC and chemistry unremarkable. Discussed with patient and , patient was unable to stand without assistance with 2 people today. does not feel she can manage patient at home. Will admit to medicine. Medical Decision Making MDM Narrative Medical decision making narrative: 87-year-old male with 2 days of generalized weakness. No objective neurologic deficit present. I have ordered a workup to evaluate his concerns of UTI as well as other likely causes of weakness in an 87-year-old. Medical Screen Exam Complete: Yes Emergency Medical Condition: Yes Lab Data Result diagrams: 08/29/18 15:15 08/29/18 15:15 Lab Results 08/29/18 08/29/18 08/29/18 Range/Units 15:15 15:15 15:15 CBC w Diff Auto diff final WBC 4.2 (4.0-11.0) th/mm3 RBC 4.02 L (4.50-5.90) mil/mm3 Hgb 13.7 (13.0-17.0) gm/dL Hct 41.1 (39.0-51.0) % MCV 102.1 H (80.0-100.0) fL MCH 34.1 H (27.0-34.0) pg MCHC 33.4 (32.0-36.0) % RDW 14.1 (11.6-17.2) % Plt Count 152 (150-450) th/mm3 MPV 7.3 (7.0-11.0) fL Neut % (Auto) 76.0 H (16.0-70.0) % Lymph % (Auto) 8.7 L (9.0-44.0) % Bell % (Auto) 13.4 H (0.0-8.0) % Eos % (Auto) 1.6 (0.0-4.0) % Baso % (Auto) 0.3 (0.0-2.0) % Neut # (Auto) 3.1 (1.8-7.7) th/mm3 Lymph # (Auto) 0.4 L (1.0-4.8) th/mm3 Bell # (Auto) 0.6 (0.0-0.9) th/mm3 Eos # (Auto) 0.1 (0.0-0.4) th/mm3 Baso # (Auto) 0.0 (0.0-0.2) th/mm3 WBC Differential . Differential Comment . Sodium 132 L (136-145) meq/L Potassium 3.5 (3.5-5.1) meq/L Chloride 97 L (98-107) meq/L Carbon Dioxide 26.6 (21.0-32.0) meq/L Anion Gap 8 (5-15) meq/L BUN 17 (7-18) mg/dL Creatinine 1.20 (0.60-1.30) mg/dL Estimated GFR 58 L (>89) mL/min Random Glucose 100 (74-106) mg/dL Calcium 8.5 (8.5-10.1) mg/dL Total Bilirubin 0.4 (0.2-1.0) mg/dL AST 31 (15-37) U/L ALT 30 (12-78) U/L Alkaline Phosphatase 62 (45-117) U/L Troponin I Less than 0.02 L (0.02-0.05) ng/mL B-Natriuretic Peptide 62 (0-100) pg/mL Total Protein 7.5 (6.4-8.2) g/dL Albumin 3.5 (3.4-5.0) g/dL TSH 0.485 (0.358-3.740) uIU/mL Urine Color (Yellw/Straw) Urine Clarity (Clear) Urine pH (5.0-8.5) Ur Specific [place] (1.002-1.035) Urine Protein (Neg-Trace) mg/dL Urine Glucose (UA) (Negative) mg/dL Urine Ketones (Negative) mg/dL Urine Occult Blood (Negative) Urine Nitrate (Negative) Urine Bilirubin (Negative) Urine Urobilinogen (Less than 2) mg/dL Ur Leukocyte Esterase (Negative) Urine RBC (0-3) /hpf Urine WBC (0-5) /hpf Amorphous Sediment (None) /hpf Micro UA Comment Ur Microscopic Review Urine Culture Comments 08/29/18 Range/Units 16:00 CBC w Diff WBC (4.0-11.0) th/mm3 RBC (4.50-5.90) mil/mm3 Hgb (13.0-17.0) gm/dL Hct (39.0-51.0) % MCV (80.0-100.0) fL MCH (27.0-34.0) pg MCHC (32.0-36.0) % RDW (11.6-17.2) % Plt Count (150-450) th/mm3 MPV (7.0-11.0) fL Neut % (Auto) (16.0-70.0) % Lymph % (Auto) (9.0-44.0) % Bell % (Auto) (0.0-8.0) % Eos % (Auto) (0.0-4.0) % Baso % (Auto) (0.0-2.0) % Neut # (Auto) (1.8-7.7) th/mm3 Lymph # (Auto) (1.0-4.8) th/mm3 Bell # (Auto) (0.0-0.9) th/mm3 Eos # (Auto) (0.0-0.4) th/mm3 Baso # (Auto) (0.0-0.2) th/mm3 WBC Differential Differential Comment Sodium (136-145) meq/L Potassium (3.5-5.1) meq/L Chloride (98-107) meq/L Carbon Dioxide (21.0-32.0) meq/L Anion Gap (5-15) meq/L BUN (7-18) mg/dL Creatinine (0.60-1.30) mg/dL Estimated GFR (>89) mL/min Random Glucose (74-106) mg/dL Calcium (8.5-10.1) mg/dL Total Bilirubin (0.2-1.0) mg/dL AST (15-37) U/L ALT (12-78) U/L Alkaline Phosphatase (45-117) U/L Troponin I (0.02-0.05) ng/mL B-Natriuretic Peptide (0-100) pg/mL Total Protein (6.4-8.2) g/dL Albumin (3.4-5.0) g/dL TSH (0.358-3.740) uIU/mL Urine Color Yellow (Yellw/Straw) Urine Clarity Clear (Clear) Urine pH 6.0 (5.0-8.5) Ur Specific [place] 1.010 (1.002-1.035) Urine Protein Trace (Neg-Trace) mg/dL Urine Glucose (UA) Negative (Negative) mg/dL Urine Ketones Trace H (Negative) mg/dL Urine Occult Blood Trace (Negative) Urine Nitrate Negative (Negative) Urine Bilirubin Negative (Negative) Urine Urobilinogen 0.2 (Less than 2) mg/dL Ur Leukocyte Esterase Negative (Negative) Urine RBC 0-3 (0-3) /hpf Urine WBC 0-5 (0-5) /hpf Amorphous Sediment Few H (None) /hpf Micro UA Comment Culture not ind Ur Microscopic Review Microscopic reviewed Urine Culture Comments Culture not ind Imaging Data Radiologist's impression: Chest X-Ray 08/29/18 14:58 CONCLUSION: Cardiomegaly with mild congestive failure Pacer on the left Discharge Plan Discharge Disposition Patient Disposition: ED Admit(ED Internal Use Only) Discharge Condition Condition: Stable Discharge Order Discharge Orders: ED Use Only Admit Order (Routine); Ordered 08/29/18 Ordered By: Gris Gilmore Discharge Details Diagnosis: Influenza Physicians Team ED Provider: Gris Gilmore Primary Care Provider: Gerson Payne Rxs /Orders / Referrals /Forms Prescriptions: No Action aspirin [Aspir-81] 81 mg Tablet,Delayed Release (Dr/Ec) 81 mg PO DAILY RF: 0 allopurinol 300 mg Tablet 300 mg PO DAILY RF: 0 ascorbic acid (vitamin C) 100 mg Tablet,Chewable 100 mg PO HS RF: 0 tamsulosin [Flomax] 0.4 mg Capsule 0.8 mg PO HS RF: 0 cyanocobalamin (vitamin B-12) 5,000 mcg Tablet,Disintegrating 5,000 mcg PO DAILY RF: 0 esomeprazole magnesium 40 mg Capsule,Delayed Release(Dr/Ec) 40 mg PO DAILY RF: 0 amlodipine 5 mg Tablet 5 mg PO DAILY RF: 0 cholecalciferol (vitamin D3) [Vitamin D3] 2,000 unit Capsule 2,000 unit PO DAILY RF: 0 olmesartan 40 mg Tablet 40 mg PO DAILY RF: 0 diphenhydramine-acetaminophen [Tylenol PM Extra Strength] 25-500 mg Tablet 2 tab PO HS PRN (Reason: Sleep) RF: 0 Discharge Interventions Interventions: Vital Signs Last Done: 08/29/18 18:25 Status ED Status: With Doctor
[2018-08-29 15:36] LABS: Baso % (Auto) 0.3 % (0.0-2.0); Eos # (Auto) 0.1 th/mm3 (0.0-0.4); Eos % (Auto) 1.6 % (0.0-4.0); Hematocrit 41.1 % (39.0-51.0); Hemoglobin 13.7 gm/dL (13.0-17.0); Lymph # (Auto) 0.4 th/mm3 (1.0-4.8); Lymph % (Auto) 8.7 % (9.0-44.0); Mean Corpuscular HGB Conc 33.4 % (32.0-36.0); Mean Corpuscular Hemoglobin 34.1 pg (27.0-34.0); Mean Corpuscular Volume 102.1 fL (80.0-100.0); Mean Platelet Volume 7.3 fL (7.0-11.0); Mono # (Auto) 0.6 th/mm3 (0.0-0.9); Mono % (Auto) 13.4 % (0.0-8.0); Neut # (Auto) 3.1 th/mm3 (1.8-7.7); Platelet Count 152 th/mm3 (150-450); Red Blood Count 4.02 mil/mm3 (4.50-5.90); Red Cell Distribution Width 14.1 % (11.6-17.2); White Blood Count 4.2 th/mm3 (4.0-11.0)
[2018-08-29 15:37] LABS: Chloride 97 meq/L (98-107); Potassium 3.5 meq/L (3.5-5.1); Sodium 132 meq/L (136-145)
[2018-08-29 15:40] LABS: Albumin 3.5 g/dL (3.4-5.0); Anion Gap 8 meq/L (5-15); Calcium 8.5 mg/dL (8.5-10.1); Carbon Dioxide 26.6 meq/L (21.0-32.0); Glucose,Random 100 mg/dL (74-106)
[2018-08-29 15:41] LABS: Blood Urea Nitrogen 17 mg/dL (7-18)
[2018-08-29 15:43] LABS: Alanine Aminotransferase 30 U/L (12-78)
[2018-08-29 15:44] LABS: Aspartate Aminotransferase 31 U/L (15-37); Glomerular Filtration Rate 58 mL/min (>89)
[2018-08-29 15:45] LABS: Total Protein 7.5 g/dL (6.4-8.2)
[2018-08-29 15:46] LABS: Alkaline Phosphatase 62 U/L (45-117)
[2018-08-29 15:54] LABS: Thyroid Stimulating Hormone 0.485 uIU/mL (0.358-3.740)
--- NOTE | 2018-08-29 15:54 | XR ---
EXAM DATE: 08/29/2018 3:46 PM EST AGE/SEX: 87 years / Male INDICATIONS: Chest pain after falling on plastic bin. CLINICAL DATA: This is the patient's initial encounter. Patient reports that signs and symptoms have been present for 4 - 6 days and indicates a pain score of 6/10. MEDICAL/SURGICAL HISTORY: . Arthritis. Hypercholesterolemia. Gastroesophageal reflux disease. G out. Hypertension. Frequent UTI. . Pacemaker. Cardiac cath. TURP. COMPARISON: [facility], CHEST 1V SINGLE AP, 06/30/2018. . FINDINGS: Pacemaker implanted in the left chest. The heart is enlarged with mild interstitial edema. Minimal bibasilar parenchymal changes evident wor se on the left than the right Mild degenerative changes about both shoulders. CONCLUSION: Cardiomegaly with mild congestive failure Pacer on the left Electronically signed by: Adi Soler MD Board Certified Radiologist 08/29/2018 3:52 PM EST
[2018-08-29 16:28] LABS: Bilirubin,Urine Negative (Negative); Clarity,Urine Clear (Clear); Color,Urine Yellow (Yellw/Straw); Glucose,Urine (UA) Negative (Negative); Leukocyte Esterase,Urine Negative (Negative); Nitrite,Urine Negative (Negative); Urobilinogen,Urine 0.2 mg/dL (Less than 2)
[2018-08-29 16:34] LABS: Amorphous Sediment,Urine Few /hpf; RBC,Urine 0-3 /hpf (0-3); WBC,Urine 0-5 /hpf (0-5)
[2018-08-29] MEDS ORDERED: Oseltamivir Phosphate 75 MG Capsule PO ONE (17:40)
[2018-08-29] MEDS ORDERED: Bisacodyl 10 MG Supp RECTAL PRN (19:00)
[2018-08-29] MEDS ORDERED: Acetaminophen 325 MG Tablet PO PRN (19:00)
[2018-08-29] MEDS: Heparin - SQ 10,000 UNITS/ML Vial SQ SCH (20:55)
[2018-08-29] MEDS: Ascorbic Acid 500 MG Tablet PO SCH (21:13)
[2018-08-30 06:24] LABS: Baso % (Auto) 0.8 % (0.0-2.0); Eos # (Auto) 0.1 th/mm3 (0.0-0.4); Eos % (Auto) 2.2 % (0.0-4.0); Hemoglobin 12.4 gm/dL (13.0-17.0); Lymph # (Auto) 0.5 th/mm3 (1.0-4.8); Lymph % (Auto) 16.9 % (9.0-44.0); Mean Corpuscular HGB Conc 33.5 % (32.0-36.0); Mean Corpuscular Hemoglobin 33.5 pg (27.0-34.0); Mean Corpuscular Volume 100.1 fL (80.0-100.0); Mean Platelet Volume 7.5 fL (7.0-11.0); Mono # (Auto) 0.5 th/mm3 (0.0-0.9); Mono % (Auto) 15.8 % (0.0-8.0); Neut # (Auto) 1.9 th/mm3 (1.8-7.7); Neut % (Auto) 64.3 % (16.0-70.0); Platelet Count 134 th/mm3 (150-450); Red Cell Distribution Width 13.4 % (11.6-17.2)
[2018-08-30 06:34] LABS: Potassium 3.4 meq/L (3.5-5.1)
[2018-08-30 06:40] LABS: Calcium 8.1 mg/dL (8.5-10.1)
[2018-08-30 06:41] LABS: Carbon Dioxide 25.2 meq/L (21.0-32.0)
[2018-08-30] MEDS: Oseltamivir Phosphate 75 MG Capsule PO SCH ×2 (08:20→21:57)
[2018-08-30] MEDS: amLODIPine 5 MG Tablet PO SCH (08:21)
[2018-08-30] MEDS: Allopurinol 300 MG Tablet PO SCH (08:21)
[2018-08-30] MEDS: Heparin - SQ 10,000 UNITS/ML Vial SQ SCH ×2 (08:25→21:56)
--- NOTE | 2018-08-30 11:55 | P.HPIM ---
History of Present Illness Primary Care Physician: Gerson Payne MD Chief Complaint: Weakness/Falls, Influenza History of Present Illness: Mr. Cam is an 87-year-old male. He comes into the emergency department due to fall and inability to ambulate. He has tested positive for influenza. Exposure may have been at a green party he went to 5 days ago. His has gone into an urgent care and tested positive for influenza, she is currently at home on Tamiflu. This patient has tested positive also. Influenza is likely contributory to his weakness. At baseline he walks with a walker. Currently he is not yet stable for return to home. Review of Systems Constitutional: No fevers, no chills no night sweats, no fatigue, weakness Eyes: No eye pain, no blurry vision, no loss of vision ENT: No sore throat, no ear pain, no rhinorrhea Cardiovascular: No chest pain, no tachycardia, no palpitations, no syncope Respiratory: No wheezing, no cough, no shortness of breath Gastrointestinal: No abdominal pain, no black tarry stools, no bright red blood per rectum, no vomiting, no diarrhea Musculoskeletal: No joint pain, no muscle cramps, no stiffness Integumentary: No rash, no ulcers, no drainage Neurologic: No sensory loss, no loss of motor function, no dizziness Psychiatric: No behavioral changes, no hallucinations, no suicidal ideations [facility] Medical History Medical History Arthritis (Acute) BPH (benign prostatic hyperplasia) (Acute) Cheek injury (Acute) Degenerative disc disease (Acute) Deviated septum (Acute) Elevated cholesterol (Acute) GERD (gastroesophageal reflux disease) (Acute) Gout (Acute) Head injury (Acute) History of frequent urinary tract infections (Acute) Hypertension (Acute) Obstructive sleep apnea on CPAP (Acute) Pacemaker (Acute) Syncope (Acute) UTI (urinary tract infection) (Acute) Surgical History Surgical History History of bladder surgery (Acute) History of facial surgery (Acute) History of nasal surgery (Acute) Hx of joint replacement (Acute) S/P TURP (Acute) S/P wrist surgery (Acute) Family History Family History Other No pertinent family history Osteoarthritis Social History Social History Substance History: No History of Abuse Second Hand Smoke Exposure: No Smoking Status: Former smoker Tobacco Type: Pipe How Often Do You Have a Drink Containing Alcohol: 4 or more times a week Recent Travel in [facility] within the Last 8 Weeks: No Recent Out of Country Travel within the Last 8 Weeks: No Immunization History Tetanus Immunization: <5 Years Tetanus Immunization Year if Known: 2017 Medications and Allergies Allergies Allergy/AdvReac Type Severity Reaction Status Date / Time monosodium glutamate AdvReac Severe Nausea/Vomi Verified 08/29/18 14:25 ting Home Medications Medication Instructions Recorded Confirmed Type allopurinol 300 mg PO DAILY 02/03/18 08/29/18 History ascorbic acid (vitamin C) 100 mg PO HS 02/03/18 08/29/18 History aspirin [Aspir-81] 81 mg PO DAILY 02/03/18 08/29/18 History cyanocobalamin (vitamin B-12) 5,000 mcg PO DAILY 03/09/18 08/29/18 History esomeprazole magnesium 40 mg PO DAILY 03/09/18 08/29/18 History amlodipine 5 mg PO DAILY 03/28/18 08/29/18 History cholecalciferol (vitamin D3) 2,000 unit PO DAILY 03/28/18 08/29/18 History [Vitamin D3] tamsulosin [Flomax] 0.8 mg PO HS 06/30/18 08/29/18 History diphenhydramine-acetaminophen 2 tab PO HS PRN 08/29/18 08/29/18 History [Tylenol PM Extra Strength] olmesartan 40 mg PO DAILY 08/29/18 08/29/18 History Active Medications: Active Medications Acetaminophen (Tylenol) 650 mg PO Q4H PRN PRN Reason: Temp > 100.4 Acetaminophen (Tylenol) 500 mg PO HS PRN PRN Reason: SLEEP Al Hydroxide/Mg Hydroxide (Milk Of Magnesia Liq) 30 ml PO Q12H PRN PRN Reason: Mild Constipation Allopurinol (Zyloprim) 300 mg PO DAILY [facility] Last Admin: 08/30/18 08:21 Dose: 300 mg Amlodipine Besylate (Norvasc) 5 mg PO DAILY [facility] Last Admin: 08/30/18 08:21 Dose: 5 mg Ascorbic Acid (Vitamin C) 500 mg PO HS [facility] Last Admin: 08/29/18 21:13 Dose: 500 mg Aspirin (Ecotrin) 81 mg PO DAILY [facility] Last Admin: 08/30/18 08:20 Dose: 81 mg Bisacodyl (Dulcolax Supp) 10 mg RECTAL DAILY PRN PRN Reason: SEVERE CONSITIPATION Cyanocobalamin (Vitamin B12) 5,000 mcg PO DAILY [facility] Last Admin: 08/30/18 08:20 Dose: 5,000 mcg Diphenhydramine HCl (Benadryl) 25 mg PO HS PRN PRN Reason: Sleep Heparin Sodium (Porcine) (Heparin Inj) 5,000 units SQ Q12H [facility] Last Admin: 08/30/18 08:25 Dose: 5,000 units Lactulose (Lactulose Liq) 30 ml PO DAILY PRN PRN Reason: SEVERE CONSITIPATION Losartan Potassium (Cozaar) 100 mg PO DAILY [facility] Last Admin: 08/30/18 08:19 Dose: 100 mg Ondansetron HCl (Zofran Inj) 4 mg IV.PUSH Q6H PRN PRN Reason: NAUSEA OR VOMITING Oseltamivir Phosphate (Tamiflu) 75 mg PO BID [facility] Last Admin: 08/30/18 08:20 Dose: 75 mg Pantoprazole Sodium (Protonix) 40 mg PO DAILY [facility] Last Admin: 08/30/18 08:20 Dose: 40 mg Sennosides (Senokot) 17.2 mg PO Q12H PRN PRN Reason: Moderate Constipation Sodium Chloride (Ns Flush) 2 ml IV.FLUSH PRN PRN PRN Reason: FLUSH AFTER USING IV ACCESS Sodium Chloride (Ns Flush) 2 ml IV.FLUSH BID [facility] Last Admin: 08/30/18 08:29 Dose: 2 ml Sodium Chloride (Ns Flush) 2 ml IV.FLUSH PRN PRN PRN Reason: FLUSH AFTER USING IV ACCESS Tamsulosin HCl (Flomax) 0.8 mg PO HS [facility] Last Admin: 08/29/18 21:13 Dose: 0.8 mg Vitamin D (Vitamin D3) 2,000 unit PO DAILY [facility] Last Admin: 08/30/18 08:20 Dose: 2,000 unit Physical Exam Vital signs: Vital Signs 08/29/18 14:20 08/29/18 15:00 08/29/18 18:25 Temperature 98.8 F Pulse Rate 93 H 85 82 Respiratory Rate 16 16 16 Blood Pressure 152/78 H 152/83 H Pulse Oximetry 93 L 96 95 08/29/18 20:00 08/29/18 21:18 08/29/18 22:17 Temperature 99.3 F Pulse Rate 80 77 Respiratory Rate 17 18 Blood Pressure 142/80 H 174/83 H Pulse Oximetry 92 L 93 L 93 L 08/30/18 00:00 08/30/18 01:35 08/30/18 04:00 Temperature 98 F 99.2 F Pulse Rate 75 71 Respiratory Rate 18 18 Blood Pressure 154/81 H 142/75 H Pulse Oximetry 92 L 93 L 94 L 08/30/18 08:00 08/30/18 08:15 Temperature 98.8 F Pulse Rate 78 86 Respiratory Rate 20 Blood Pressure 133/77 Pulse Oximetry 92 L 92 L Intake & Output 08/29/18 08/30/18 08/30/18 18:59 06:59 18:59 Intake Total 120 / 120 Balance 120 / 120 Weight 93.3 kg 95.3 kg Intake: Oral 120 / 120 Other: # Voids 1 Date of Last Bowel Movement 08/30/18 # Bowel Movements 1 Weight On Admission 95.3 kg Narrative: GENERAL: NAD, A&Ox3, generalized weakness HEAD: Normocephalic. NECK: Supple, trachea midline. No lymphadenopathy. EYES: No scleral icterus. No injection or drainage. CARDIOVASCULAR: Regular rate and rhythm without murmurs, gallops, or rubs. RESPIRATORY: Breath sounds equal bilaterally. No accessory muscle use. GASTROINTESTINAL: Abdomen soft, non-tender, nondistended. MUSCULOSKELETAL: No cyanosis, or edema. SKIN: Warm and dry. NEURO: No focal neurological deficits. Urinary Catheter Management Straight: Cath placed during this visit: yes Reason for continuing: Not indwelling catheter Insertion date: 08/29/18 Insertion time: 16:00 Results Labs CBC & Chem 7: 08/30/18 05:35 08/30/18 05:35 Imaging Impressions Chest X-Ray 08/29/18 14:58 CONCLUSION: Cardiomegaly with mild congestive failure Pacer on the left Caprini VTE Risk Assessment Caprini VTE Risk Assessment: No/Low Risk (score <= 1) Caprini Risk Assessment Model: Point Value = 1 Point Value = 2 Point Value = 3 Point Value = 5 Age 41-60 Minor surgery BMI > 25 kg/m2 Swollen legs Varicose veins or History of unexplained or recurrent spontaneous Oral contraceptives or hormone replacement Sepsis (< 1 month) Serious lung disease, including pneumonia (< 1 month) Abnormal pulmonary function Acute myocardial infarction Congestive heart failure (< 1 month) History of inflammatory bowel disease Medical patient at bed rest Age 61-74 Arthroscopic surgery Major open surgery (> 45 min) Laparoscopic surgery (> 45 min) Malignancy Confined to bed (> 72 hours) Immobilizing plaster cast Central venous access Age >= 75 History of VTE Family history of VTE Factor V Leiden Prothrombin [id number] Lupus anticoagulant Anticardiolipin antibodies Elevated serum homocysteine Heparin-induced thrombocytopenia Other congenital or acquired thrombophilia Stroke (< 1 month) Elective arthroplasty Hip, pelvis, or leg fracture Acute spinal cord injury (< 1 month) Prophylaxis Regimen: Total Risk Factor Score Risk Level Prophylaxis Regimen 0-1 Low Early ambulation 2 Moderate Order ONE of the following: *Sequential Compression Device (SCD) *Heparin 5000 units SQ BID 3-4 Higher Order ONE of the following medications: *Heparin 5000 units SQ TID *Enoxaparin/Lovenox 40 mg SQ daily (WT < 150 kg, CrCl > 30 mL/min) *Enoxaparin/Lovenox 30 mg SQ daily (WT < 150 kg, CrCl > 10-29 mL/min) *Enoxaparin/Lovenox 30 mg SQ BID (WT < 150 kg, CrCl > 30 mL/min) AND/OR *Sequential Compression Device (SCD) 5 or more Highest Order ONE of the following medications: *Heparin 5000 units SQ TID (Preferred with Epidurals) *Enoxaparin/Lovenox 40 mg SQ daily (WT < 150 kg, CrCl > 30 mL/min) *Enoxaparin/Lovenox 30 mg SQ daily (WT < 150 kg, CrCl > 10-29 mL/min) *Enoxaparin/Lovenox 30 mg SQ BID (WT < 150 kg, CrCl > 30 mL/min) AND *Sequential Compression Device (SCD) Assessment and Plan Plan 87-year-old male admitted on observation status secondary to influenza with complication of weakness and falls. Influenza Continue Tamiflu Follow clinically Continue treatment of symptoms Weakness Falls Complication of influenza Continue physical therapy Osteoarthritis Benign prostatic hypertrophy Degenerative disc disease Hyperlipidemia Gastroesophageal reflux disease Gout Hypertension Obstructive sleep apnea History of syncope Pacemaker No change in his baseline conditions Continue baseline treatments DVT prophylaxis SCDs Discharge planning Patient will be stable for discharge once clinically improved and fall risk decreases H&P: Quality VTE Deep Vein Thrombosis/Pulmonary Embolism Present on Admission: No
--- NOTE | 2018-08-30 12:42 | ECG ---
Date Performed: 08/29/2018 Time Performed: 15:13:25 PTAGE: 87 years EKG: ELECTRONIC VENTRICULAR PACEMAKER ABNORMAL RHYTHM ECG PREVIOUS TRACING : 04/29/2017 10.49 DOCTOR: Milton Mckenzie Interpretating Date/Time 08/30/2018 12:33:55
[2018-08-30] MEDS: Ascorbic Acid 500 MG Tablet PO SCH (21:56)
[2018-08-30] MEDS: Acetaminophen 500 MG Tablet PO PRN (22:05)
[2018-08-31] MEDS: amLODIPine 5 MG Tablet PO SCH (08:55)
[2018-08-31] MEDS: Allopurinol 300 MG Tablet PO SCH (08:55)
[2018-08-31] MEDS: Oseltamivir Phosphate 75 MG Capsule PO SCH ×2 (08:55→21:05)
[2018-08-31] MEDS: Heparin - SQ 10,000 UNITS/ML Vial SQ SCH ×2 (08:57→21:00)
--- NOTE | 2018-08-31 10:45 | P.PNIM ---
Subjective Interval history: Patient remains a fall risk. He does not feel his functioning is back to baseline. He says it typically his would be able to help, but currently she has influenza and is incapacitated. Not yet safe for discharge home. Physical Exam Vital signs: Vital Signs 08/30/18 11:58 08/30/18 12:00 08/30/18 16:00 Temperature 98.5 F 98.1 F Pulse Rate 76 74 78 Respiratory Rate 22 20 Blood Pressure 137/77 128/80 Pulse Oximetry 90 L 91 L 08/30/18 20:00 08/30/18 20:15 08/31/18 00:00 Temperature 99.3 F 97.3 F L Pulse Rate 69 68 60 Respiratory Rate 18 18 Blood Pressure 144/73 H 153/72 H Pulse Oximetry 94 L 94 L 08/31/18 04:00 08/31/18 08:00 Temperature 97.1 F L 98.2 F Pulse Rate 60 81 Respiratory Rate 18 22 Blood Pressure 153/77 H 108/75 Pulse Oximetry 93 L 92 L Intake & Output 08/30/18 08/31/18 08/31/18 18:59 06:59 18:59 Intake Total 240 / 240 Output Total 1250 / 1250 Balance -1010 / -1010 Weight 95.4 kg Intake: Oral 240 / 240 Output: Urine 1250 / 1250 Other: Date of Last Bowel Movement 08/30/18 08/30/18 # Bowel Movements 1 Narrative: GENERAL: NAD, A&Ox3, generalized weakness HEAD: Normocephalic. NECK: Supple, trachea midline. No lymphadenopathy. EYES: No scleral icterus. No injection or drainage. CARDIOVASCULAR: Regular rate and rhythm without murmurs, gallops, or rubs. RESPIRATORY: Breath sounds equal bilaterally. No accessory muscle use. GASTROINTESTINAL: Abdomen soft, non-tender, nondistended. MUSCULOSKELETAL: No cyanosis, or edema. SKIN: Warm and dry. NEURO: No focal neurological deficits. Urinary Catheter Management Straight: Cath placed during this visit: yes Reason for continuing: Not indwelling catheter Insertion date: 08/29/18 Insertion time: 16:00 Results Labs CBC & Chem 7: 08/30/18 05:35 08/30/18 05:35 Assessment and Plan Plan 87-year-old male admitted on observation status secondary to influenza with complication of weakness and falls. Improvement in strength needed prior to discharge. Continue treating influenza. Continue physical therapy. Influenza Continue Tamiflu Follow clinically Continue treatment of symptoms Weakness Falls Complication of influenza Continue physical therapy Osteoarthritis Benign prostatic hypertrophy Degenerative disc disease Hyperlipidemia Gastroesophageal reflux disease Gout Hypertension Obstructive sleep apnea History of syncope Pacemaker No change in his baseline conditions Continue baseline treatments DVT prophylaxis SCDs Discharge planning Patient will be stable for discharge once clinically improved and fall risk decreases Progress Note: Quality VTE Deep Vein Thrombosis/Pulmonary Embolism Present on Admission: No
[2018-08-31] MEDS: Acetaminophen 500 MG Tablet PO PRN (21:04)
[2018-08-31] MEDS: Ascorbic Acid 500 MG Tablet PO SCH (21:05)
[2018-09-01 06:53] LABS: Baso % (Auto) 0.7 % (0.0-2.0); Eos # (Auto) 0.3 th/mm3 (0.0-0.4); Eos % (Auto) 9.7 % (0.0-4.0); Hematocrit 40.4 % (39.0-51.0); Hemoglobin 13.3 gm/dL (13.0-17.0); Lymph % (Auto) 34.5 % (9.0-44.0); Mean Corpuscular HGB Conc 32.9 % (32.0-36.0); Mean Corpuscular Hemoglobin 33.7 pg (27.0-34.0); Mean Corpuscular Volume 102.3 fL (80.0-100.0); Mean Platelet Volume 8.1 fL (7.0-11.0); Mono # (Auto) 0.3 th/mm3 (0.0-0.9); Neut # (Auto) 1.2 th/mm3 (1.8-7.7); Neut % (Auto) 44.1 % (16.0-70.0); Platelet Count 134 th/mm3 (150-450); Red Blood Count 3.95 mil/mm3 (4.50-5.90); Red Cell Distribution Width 13.5 % (11.6-17.2); White Blood Count 2.8 th/mm3 (4.0-11.0)
[2018-09-01 07:02] LABS: Chloride 102 meq/L (98-107); Potassium 3.7 meq/L (3.5-5.1); Sodium 136 meq/L (136-145)
[2018-09-01 07:06] LABS: Calcium 8.1 mg/dL (8.5-10.1)
[2018-09-01 07:07] LABS: Anion Gap 8 meq/L (5-15); Blood Urea Nitrogen 21 mg/dL (7-18); Carbon Dioxide 26.5 meq/L (21.0-32.0); Glucose,Random 92 mg/dL (74-106)
[2018-09-01 07:10] LABS: Alanine Aminotransferase 43 U/L (12-78); Aspartate Aminotransferase 40 U/L (15-37); Glomerular Filtration Rate 64 mL/min (>89)
[2018-09-01 07:12] LABS: Total Protein 6.8 g/dL (6.4-8.2)
[2018-09-01 07:13] LABS: Alkaline Phosphatase 60 U/L (45-117)
[2018-09-01] MEDS: amLODIPine 5 MG Tablet PO SCH (08:26)
[2018-09-01] MEDS: Allopurinol 300 MG Tablet PO SCH (08:27)
[2018-09-01] MEDS: Oseltamivir Phosphate 75 MG Capsule PO SCH (08:27)
[2018-09-01] MEDS: Heparin - SQ 10,000 UNITS/ML Vial SQ SCH (08:29)
--- NOTE | 2018-09-01 13:12 | P.DCO ---
Physical Therapy Order: Improve ambulation and Strength and gait training Case Management Consult Case Management Consult-Home Health: Yes I have seen patient Jonatan Cam on 09/01/18. My clinical findings support the need for the requested home health care services because: Limited mobility due to disease progression, Patient has SOB and Deconditioned with increased weakness I certify that my clinical findings support that this patient is homebound because: Unsteady gait/balance, Unsafe to leave home unassisted and Unable to use public transportation
--- NOTE | 2018-09-01 13:16 | P.DS ---
DS: Providers Date of admission: 08/29/18 18:23 Primary care physician: Gerson Payne MD Brief History from admission: Mr. Cam is an 87-year-old male. He comes into the emergency department due to fall and inability to ambulate. He has tested positive for influenza. Exposure may have been at a constitution party he went to 5 days ago. His has gone into an urgent care and tested positive for influenza, she is currently at home on Tamiflu. This patient has tested positive also. Influenza is likely contributory to his weakness. At baseline he walks with a walker. Currently he is not yet stable for return to home. DS: Summary Mr. Cam is an 87-year-old male. At baseline he uses a walker. He was admitted secondary to acute onset of weakness with falls. He had a chest wall injury but no fracture. Influenza was found. Patient has been started on Tamiflu. He was not stable for discharge due to weakness until today. Today he is having recovery from influenza symptoms. Is able to ambulate 200 feet. He feels stable on his feet. Medically stable and cleared for discharge home today. He will continue Tamiflu for 2 more days. Time Spent with Patient Total time spent providing and/or coordinating discharge services: Less than 30 minutes Quality: VTE Deep Vein Thrombosis/Pulmonary Embolism Present on Admission: No Results Labs on day of discharge: Labs from last 24 hours 09/01/18 09/01/18 05:35 05:35 CBC w Diff Auto diff final WBC 2.8 L RBC 3.95 L Hgb 13.3 Hct 40.4 MCV 102.3 H MCH 33.7 MCHC 32.9 RDW 13.5 Plt Count 134 L MPV 8.1 Neut % (Auto) 44.1 Lymph % (Auto) 34.5 Lewis % (Auto) 11.0 H Eos % (Auto) 9.7 H Baso % (Auto) 0.7 Neut # (Auto) 1.2 L Lymph # (Auto) 1.0 Lewis # (Auto) 0.3 Eos # (Auto) 0.3 Baso # (Auto) 0.0 WBC Differential . Differential Comment . Sodium 136 Potassium 3.7 Chloride 102 Carbon Dioxide 26.5 Anion Gap 8 BUN 21 H Creatinine 1.10 Estimated GFR 64 L Random Glucose 92 Calcium 8.1 L Total Bilirubin 0.4 AST 40 H ALT 43 Alkaline Phosphatase 60 Total Protein 6.8 D Albumin 3.0 L Impressions ITS Impressions Chest X-Ray 08/29/18 14:58 CONCLUSION: Cardiomegaly with mild congestive failure Pacer on the left Discharge Plan Discharge Disposition Patient Disposition: /Home Health Service Discharge Condition Condition: Stable Discharge Order Discharge Orders: Discharge Order (Routine); Ordered 09/01/18 Ordered By: Brandin Trevino Discharge Details Anticipated Discharge Date: 09/01/18 Discharge Comment: Prescirption transmitted Physicians Team Primary Care Provider: Gerson Payne Attending Provider: Brandin Trevino Rxs /Orders / Referrals /Forms Prescriptions: New oseltamivir [Tamiflu] 75 mg Capsule 75 mg PO BID 2 Days Qty: 4 RF: 0 Continue aspirin [Aspir-81] 81 mg Tablet,Delayed Release (Dr/Ec) 81 mg PO DAILY RF: 0 allopurinol 300 mg Tablet 300 mg PO DAILY RF: 0 ascorbic acid (vitamin C) 100 mg Tablet,Chewable 100 mg PO HS RF: 0 tamsulosin [Flomax] 0.4 mg Capsule 0.8 mg PO HS RF: 0 cyanocobalamin (vitamin B-12) 5,000 mcg Tablet,Disintegrating 5,000 mcg PO DAILY RF: 0 esomeprazole magnesium 40 mg Capsule,Delayed Release(Dr/Ec) 40 mg PO DAILY RF: 0 amlodipine 5 mg Tablet 5 mg PO DAILY RF: 0 cholecalciferol (vitamin D3) [Vitamin D3] 2,000 unit Capsule 2,000 unit PO DAILY RF: 0 olmesartan 40 mg Tablet 40 mg PO DAILY RF: 0 diphenhydramine-acetaminophen [Tylenol PM Extra Strength] 25-500 mg Tablet 2 tab PO HS PRN (Reason: Sleep) RF: 0 methenamine hippurate [Hiprex] 1 gram Tablet 0.5 g PO BID RF: 0 Referrals: Gerson Payne MD [Primary Care Provider] - See Instructions Discharge Interventions Interventions: Discharge Planning - Case Management Last Done: 08/30/18 14:36 Status ED Status: Left Department
== END 2018-09-01 14:53 | disposition home health service (06) ==
LOC: PHEDA 14:08 → PHED 14:08 → PHEDA 21:52 → PH3 21:58
PROVIDERS: ADMIT Hospitalist; ATTEND Hospitalist
DX: Z91.81 History of falling; N39.0 Urinary tract infection, site not specified; I11.9 Hypertensive heart disease without heart failure; J11.1 Influenza due to unidentified influenza virus with other respiratory manifestations; N40.0 Benign prostatic hyperplasia without lower urinary tract symptoms; G47.33 Obstructive sleep apnea (adult) (pediatric); K21.9 Gastro-esophageal reflux disease without esophagitis; Z96.60 Presence of unspecified orthopedic joint implant; E78.5 Hyperlipidemia, unspecified; M19.90 Unspecified osteoarthritis, unspecified site; W19.XXXA Unspecified fall, initial encounter; Z87.891 Personal history of nicotine dependence; Z87.440 Personal history of urinary (tract) infections; J34.2 Deviated nasal septum; Z79.82 Long term (current) use of aspirin; Z90.79 Acquired absence of other genital organ(s); I50.9 Heart failure, unspecified; E78.00 Pure hypercholesterolemia, unspecified; M10.9 Gout, unspecified
CPT/HCPCS: 71010; 71045; 80048; 80053; 81001; 83520; 83880; 84443; 84484; 85025; 87275; 87276; 87804; 93005; 96372; 97110; 97116; 97162; 97530; 99285; G0378; G8987; G8988; J1644; P9612